=== PATIENT | female | born 1950 | race Caucasian/White ===

== ENCOUNTER → 2016-10-21 | Outpatient (CLI) | payer MEDICARE ==
[~2016-10-21] MED LIST: ALLOPURINOL100 MG PO; APAP/OXYCODONE1 TA2 PO; ASPI-COR81 M1 PO; ASPIRIN81 M1 PO; ATARAX25 MG PO; ATROPINE SU0.1 MG/ML IV; CALAN,ISOPTIN80 MG PO; CARDIZEM120 MG PO; CARVEDILOL6.25 MG PO; CEFTIN500 MG PO; CIPRO500 MG PO; CLOPIDOGREL75 MG PO; DIGOX0.125 MG PO; DOXYCYCLINE100 M3 PO; FUROSEMIDE40 MG PO; HUMALOG100 U/ML SC; IMDUR30 MG PO; INSULIN-HUMA100 U/ML; IRON TABLETS325 MG PO; KLOR-CON 1010 ME1 PO; LANOXIN0.125 MG PO; LANTUS100 U/ML SC; LASIX40 MG PO; LEVOFLOXACIN500 MG PO; LEVOTHYROXINE0.05 MG PO; LEVOXYL0.025 MG PO; LIPITOR40 MG PO; LORAZEPAM0.5 MG PO; LOVENOX30 MG/0.3 SC; METOPROLOL SUC100 M2 PO; METOPROLOL SUCC50 M1 PO; MULTIVITAMIN FO1 CAP PO; OMEPRAZOLE D/R20 MG PO; OMEPRAZOLE20 MG PO; ONDANSETRON4 MG PO; PANTOPRAZOLE SO40 MG PO; PRAVACHOL80 MG PO; PREDNICOT20 MG PO; PROGESTERONE200 M2 PO; PROPAFENONE HC150 MG PO; SIMVASTATIN80 MG PO; TEMAZEPAM15 MG PO; TOPROL XL50 MG PO; TORSEMIDE20 MG PO; TRAMADOL HYDROC50 MG PO; TRAMADOL50 MG PO; ULORIC40 MG PO; ULTRAM50 MG PO; VERAPAMIL HCL240 M1 PO; VERAPAMIL HYDRO80 MG PO; VERAPAMIL SR120 MG PO; VITAMIN D5000 UNI1 PO; XANAX0.25 MG PO; XANAX0.5 MG PO; ZANTAC 150150 MG PO; ZOFRAN ODT4 MG SL; Zofran4 MG PO; [UNRECOGNIZED DRUG - OTHER] PO
[2016-10-21 09:38] LABS: BASO # 0.1 10*3/uL (0.0-0.1); BASO % 0.7 % (0.0-1.0); EOS # 0.2 10*3/uL (0.0-0.4); EOS % 2.5 % (1.0-4.0); HEMATOCRIT 43.6 % (37.0-47.0); HEMOGLOBIN 14.4 g/dl (12.0-16.0); IG # 0.1 10*3/uL (0.0-0.1); LYMPH # 2.1 10*3/uL (1.3-4.4); LYMPH % 22.1 % (27.0-41.0); MEAN CELL VOLUME 91.4 fl (81.0-99.0); MEAN CORPUSCULAR HGB 30.2 pg (27.0-31.0); MEAN PLATELET VOLUME 10.7 fl (9.6-12.3); NEUT # 6.2 10*3/uL (2.3-7.9); NEUT % 63.8 % (47.0-73.0); PLATELET COUNT AUTOMATED 223 10*3/uL (130-400); RED BLOOD COUNT 4.77 10*6/uL (4.10-5.10); RED CELL DISTRI WIDTH 15.3 % (0-14.5); WHITE BLOOD COUNT 9.6 10*3/uL (4.8-10.8)
[2016-10-21 09:45] LABS: BILIRUBIN NEGATIVE (NEGATIVE); BLOOD NEGATIVE (NEGATIVE); CLARITY CLEAR (CLEAR); COLOR YELLOW (YELLOW); GLUCOSE TRACE (NEGATIVE); KETONE NEGATIVE (NEGATIVE); LEUKO ESTERASE NEGATIVE (NEGATIVE); NITRITE NEGATIVE (NEGATIVE); PROTEIN NEGATIVE (NEGATIVE); UROBILINOGEN 0.2 E.U./dl (0.2-1.0)
[2016-10-21 09:55] LABS: WBC 0-2 wbc/hpf (0-5); YEAST TRACE
[2016-10-21 10:07] LABS: MAGNESIUM 2.5 mg/dL (1.5-2.1); PHOSPHOROUS 3.5 mg/dL (2.5-4.9); POTASSIUM 5.2 mmol/L (3.5-5.1); URIC ACID 7.6 mg/dL (2.6-6.0)
[2016-10-22 10:06] LABS: MICRO ALBUMIN/CRE RATIO <4.0 (0.0-30.0)
== END | disposition home or self-care (01) ==
LOC: LAB 09:15
PROVIDERS: Internal Medicine Nephrology
DX: I13.0 Hypertensive heart and chronic kidney disease with heart failure and stage 1 through stage 4 chronic kidney disease, or unspecified chronic kidney disease (principal); N18.3 Chronic kidney disease, stage 3 (moderate); I50.9 Heart failure, unspecified; E55.9 Vitamin D deficiency, unspecified; R60.9 Edema, unspecified; R80.9 Proteinuria, unspecified; M1A.00X0 Idiopathic chronic gout, unspecified site, without tophus (tophi); N25.89 Other disorders resulting from impaired renal tubular function; D63.1 Anemia in chronic kidney disease

== ENCOUNTER → 2017-04-15 | Outpatient (CLI) | payer MEDICARE ==
[2017-04-15 09:15] LABS: BILIRUBIN NEGATIVE (NEGATIVE); BLOOD NEGATIVE (NEGATIVE); CLARITY CLEAR (CLEAR); COLOR YELLOW (YELLOW); GLUCOSE NEGATIVE (NEGATIVE); KETONE NEGATIVE (NEGATIVE); LEUKO ESTERASE NEGATIVE (NEGATIVE); NITRITE NEGATIVE (NEGATIVE); PH 5.5 (5.0-9.0); UROBILINOGEN 0.2 E.U./dl (0.2-1.0)
[2017-04-15 09:42] LABS: CREATININE 1.72 mg/dL (0.55-1.02); POTASSIUM 4.5 mmol/L (3.5-5.1)
[2017-04-15 09:52] LABS: RBC 0-2 rbc/hpf (0-2); WBC 0-2 wbc/hpf (0-5)
== END | disposition home or self-care (01) ==
LOC: LAB 08:46
PROVIDERS: Internal Medicine; Internal Medicine Nephrology
DX: N18.9 Chronic kidney disease, unspecified (principal); N39.0 Urinary tract infection, site not specified

== ENCOUNTER 2017-05-12 11:41 | Inpatient (IN) | payer MEDICARE ==
[~2017-05-12] VITALS: Ht 167.6 cm; Wt 122.5 kg
[~2017-05-12 11:41] MED LIST changes: -DIGOX0.125 MG PO; +DIGOX125 MCG PO; +HUMALOG100 UNIT/1 SC; +LEVOTHYROXINE50 MCG PO
[2017-05-12 12:15] VITALS: BP 116/60
--- NOTE | 2017-05-12 12:15 | NUR ---
Time: 1214 A 67 year old FEMALE admitted to under services of DR. NORY ALARCON,PILAR. Pt. arrived via wheel chair from [place]. Chief complaint: WOUNDS TO BILATERAL ABDOMEN, RIGHT SIDE HAS OPENED AND IS DRAINING WITH ODOR. MARISEL FLEMING
[2017-05-12] MEDS ORDERED: TOPROL XL50 M1 PO (13:05)
[2017-05-12] MEDS ORDERED: ATIVAN0.5 MG PO (13:08)
[2017-05-12] MEDS ORDERED: JANUVIA50 MG PO (13:09)
[2017-05-12] MEDS ORDERED: Rocaltrol0.25 MCG PO (13:10)
--- NOTE | 2017-05-12 13:10 | NUR ---
MED REC UPDATED/CORRECTED USING MEDS LIST PROVIDED BY THE PATIENT.
--- NOTE | 2017-05-12 14:23 | NUR ---
DR. SINGH NOTIFIED OF CONSULT.
[2017-05-12 14:26] LABS: BASO # 0.1 10*3/uL (0.0-0.1); BASO % 0.4 % (0.0-1.0); EOS # 0.2 10*3/uL (0.0-0.4); EOS % 1.7 % (1.0-4.0); HEMATOCRIT 39.7 % (37.0-47.0); HEMOGLOBIN 13.2 g/dl (12.0-16.0); LYMPH # 2.5 10*3/uL (1.3-4.4); LYMPH % 21.5 % (27.0-41.0); MEAN CELL VOLUME 87.8 fl (81.0-99.0); MEAN CORPUSCULAR HGB 29.2 pg (27.0-31.0); MEAN CORPUSCULAR HGB CONC 33.2 g/dl (33.0-37.0); MEAN PLATELET VOLUME 10.3 fl (9.6-12.3); MONO # 1.2 10*3/uL (0.1-1.0); MONO % 10.1 % (3.0-9.0); NEUT # 7.7 10*3/uL (2.3-7.9); NEUT % 65.6 % (47.0-73.0); PLATELET COUNT AUTOMATED 227 10*3/uL (130-400); RED BLOOD COUNT 4.52 10*6/uL (4.10-5.10); RED CELL DISTRI WIDTH 14.8 % (0-14.5); WHITE BLOOD COUNT 11.8 10*3/uL (4.8-10.8)
[2017-05-12 14:34] LABS: ACT PARTIAL THROMBO TIME 19.6 SECONDS (20.8-31.5)
[2017-05-12 14:44] LABS: ALBUMIN 3.1 gm/dl (3.1-4.5); CREATININE 1.58 mg/dL (0.55-1.02); POTASSIUM 3.7 mmol/L (3.5-5.1); TOTAL PROTEIN 7.5 gm/dL (6.4-8.2)
[2017-05-12 14:52] LABS: THYROID STIM HORMONE (HS) 2.23 uIU/ml (0.358-4.75)
--- NOTE | 2017-05-12 14:57 | NUR ---
JOSSIE DIAZ [id number] Please refer to the physician's history and physical for past medical history, comorbid conditions, and allergies. Diagnosis: ABD WALL ABSCESS Gigi Score: 19,LOW OR NO RISK WOUND DESCRIPTIONS: Location of the wound: ABD Right lower quadrant Type of wound: Thickness: Partial Size: 3cm x 2cm x 0.1cm Tunneling: none Undermining: none Sinus Tract: none Presence of Exudate: SeroSanguineous Amount: Moderate Color: Brown Odor: Foul Periwound Skin Appearance: Erythema Wound edges: approximated Pain (associated with wound): Patient stated pain 5/10 at time of assessment How does patient state this happened? patient stated this area started as a reddened area then became bigger. Patient seen Dr. Foreman and he admitted her to the floor Surface the patient is resting on: Isoflex SKIN PREVENTION RECOMMENDATION: 1. Pressure redistribution support surface as appropriate 2. Elevate heels 3. Remove boots/TEDS every shift and reapply 4. Head of bed 30 degrees as tolerated 5. Assess nutrition and hydration 6. Manage moisture 7. Avoid the use of containment devices while in bed 8. Use absorptive products on surfaces limit layers of linens on bed 9. Turn and reposition every 1-2 hours in bed and every 1 hour in chair as tolerated 10. Weight shifts every 15 minutes while up in chair 11. Offloading with pillows or device to keep heels elevated off bed 12. Monitor skin at least every shift 13. Inspect under medical devices twice a day WOUND TREATMENT RECOMMENDATIONS: Await orders from surgery consult.
[2017-05-12 16:00] VITALS: BP 134/57
[2017-05-12 20:00] VITALS: BP 98/70
--- NOTE | 2017-05-12 20:16 | NUR ---
PATIENT SITTING ON SIDE OF BED WITH NO S/S OF DISTRESS. RESPS EASY AND REGULAR. NO NEEDS MADE. ANTIBIOTIC INFUSING WITHOUT DIFFICULTY. BED IN LOWEST POSITION, CALL LIGHT IN REACH
[2017-05-13] VITALS (8 sets, daily range): BP systolic 111–135; BP diastolic 38–70
--- NOTE | 2017-05-13 00:27 | NUR ---
SPOKE WITH DR VEGAS REGARDING ALLERGY TO NAPROXEN AND ASA. STATES HE IS AWARE
--- NOTE | 2017-05-13 03:17 | NUR ---
PATIENT RESTING IN BED WITH NO S/S OF DISTRESS. RESPS EASY AND REGULAR. BED IN LOWEST POSITION, CALL LIGHT IN REACH
--- NOTE | 2017-05-13 03:54 | NUR ---
24 HR chart check completed.
[2017-05-13 06:54] LABS: BASO # 0.1 10*3/uL (0.0-0.1); BASO % 0.5 % (0.0-1.0); EOS # 0.2 10*3/uL (0.0-0.4); EOS % 1.7 % (1.0-4.0); HEMATOCRIT 37.4 % (37.0-47.0); HEMOGLOBIN 12.4 g/dl (12.0-16.0); LYMPH # 1.5 10*3/uL (1.3-4.4); LYMPH % 16.6 % (27.0-41.0); MEAN CELL VOLUME 89.3 fl (81.0-99.0); MEAN CORPUSCULAR HGB 29.6 pg (27.0-31.0); MEAN CORPUSCULAR HGB CONC 33.2 g/dl (33.0-37.0); MEAN PLATELET VOLUME 10.4 fl (9.6-12.3); NEUT # 6.4 10*3/uL (2.3-7.9); NEUT % 69.7 % (47.0-73.0); PLATELET COUNT AUTOMATED 203 10*3/uL (130-400); RED BLOOD COUNT 4.19 10*6/uL (4.10-5.10); RED CELL DISTRI WIDTH 14.7 % (0-14.5); WHITE BLOOD COUNT 9.2 10*3/uL (4.8-10.8)
[2017-05-13 07:28] LABS: POTASSIUM 3.7 mmol/L (3.5-5.1)
[2017-05-13 07:49] LABS: ALBUMIN 2.9 gm/dl (3.1-4.5); CREATININE 1.7 mg/dL (0.55-1.02); DIGOXIN 0.91 ng/ml (0.8-2.0); TOTAL PROTEIN 7.1 gm/dL (6.4-8.2)
--- NOTE | 2017-05-13 08:30 | NUR ---
[facility] Practitioner in to talk to patient. Patient states lives at HOME with HER . There are 0 steps in the home. Physician: DR CUETO Pharmacy: [facility] health services: NONE Patient's level of ADLs: INDEPENDENT Patient has working utilities: YES DME: BSC/WALKER/GLUCOMETER Follow-up physician's appointment after d/c: PREFERS TO MAKE HER OWN APPT Does patient want to access PORTAL?: Discharge plan HOME. BRYON ALEXANDER
--- NOTE | 2017-05-13 11:35 | NUR ---
BEDSIDE GLUCOSE RESULT 75; DR. CUETO IN TO SEE PATIENT RE: PLAN OF CARE, PATIENT IS NPO, SO PER DR. CUETO, PATIENT TO HAVE ONE AMP D50 NOW PRIOR TO GOING TO SURGERY. ADMINISTERED ONE AMP D50, PATIENT STATES NO S/S OF HYPOGLYCEMIA YET, THEN PATIENT TO OR BY BED FOR I & D PROCEDURE. FAMILY TO 3RD FLOOR WITH PATIENT.
--- NOTE | 2017-05-13 14:29 | NUR ---
PATIENT BACK FROM OR PROCEDURE, RESUMING MEDS AND DIET.
--- NOTE | 2017-05-13 17:30 | NUR ---
PT GIVEN MILK OF MAGNESIUM AND BISACODYL PER REQUEST.
[2017-05-14] VITALS: BP 136/89
[2017-05-14 06:34] LABS: BASO % 0.4 % (0.0-1.0); EOS # 0.2 10*3/uL (0.0-0.4); EOS % 2.5 % (1.0-4.0); HEMATOCRIT 37.5 % (37.0-47.0); HEMOGLOBIN 12.3 g/dl (12.0-16.0); LYMPH # 1.7 10*3/uL (1.3-4.4); LYMPH % 17.5 % (27.0-41.0); MEAN CELL VOLUME 89.1 fl (81.0-99.0); MEAN CORPUSCULAR HGB 29.2 pg (27.0-31.0); MEAN CORPUSCULAR HGB CONC 32.8 g/dl (33.0-37.0); MONO # 1.1 10*3/uL (0.1-1.0); MONO % 11.8 % (3.0-9.0); NEUT # 6.4 10*3/uL (2.3-7.9); NEUT % 67.1 % (47.0-73.0); PLATELET COUNT AUTOMATED 213 10*3/uL (130-400); RED BLOOD COUNT 4.21 10*6/uL (4.10-5.10); RED CELL DISTRI WIDTH 14.9 % (0-14.5); WHITE BLOOD COUNT 9.6 10*3/uL (4.8-10.8)
[2017-05-14 07:00] LABS: CREATININE 1.82 mg/dL (0.55-1.02); TOTAL PROTEIN 7.1 gm/dL (6.4-8.2)
[2017-05-14 08:00] VITALS: BP 111/66
--- NOTE | 2017-05-14 08:00 | NUR ---
PT UP RESTING IN BED, PT DENIES ANY DISTRESS. PT STATES SOME "BURNING" TO ABDOMINAL WOUNDS, DENIES ANY PAIN. DRESSINGS TO RLQ/LLQ D&I. 1+ EDEMA NOTED TO BLE, REDNESS TO LOWER EXTREMEITIES NOTED. PT DENIES ANY COMPLAINTS, CALL LIGHT WITHIN REACH.
--- NOTE | 2017-05-14 10:00 | NUR ---
SPOKE WITH WOUND CARE NURSE KATHRYN REGARDING WOUND CARE ORDERS, SHE STATES WE ARE WAITING TO HEAR BACK FROM DR SINGH REGARDING INSTRUCTIONS.
--- NOTE | 2017-05-14 11:33 | NUR ---
PT DENIES PAIN AT THIS TIME, STATING IT IS NOTHING SHE CAN'T TOLERATE, DENIES SCHEDULED ULTRAM AT THIS TIME.
[2017-05-14 12:00] VITALS: BP 130/91
[2017-05-14 16:00] VITALS: BP 100/84
--- NOTE | 2017-05-14 17:56 | NUR ---
WOUND CARE PERFORMED PER ORDER AND WOUND PHOTOS TAKEN. PT TOLERATED WELL. PT WAS EXPERIENCING SOME DISCOMFORT, PT DENIES NEED FOR PAIN MEDS.
--- NOTE | 2017-05-14 19:57 | NUR ---
PT. IS RESTING IN BED AT THIS TIME WITH C/O ABDOMINAL PAIN, BUT REFUSES PAIN MEDICATION. RESPERS ARE EASY AND REGULAR WITH NO DISTRESS NOTED. HOB IS ELEVATED, WHEELS LOCKED, AND BED IN LOWEST POSITION WITH CALL LIGHT IN REACH. DRESSINGS ARE DRY AND INTACT. SEE SHIFT ASSESSMENT.
[2017-05-14 20:00] VITALS: BP 112/64
[2017-05-15] VITALS: BP 119/49
--- NOTE | 2017-05-15 02:54 | NUR ---
24 HR chart check completed.
[2017-05-15 06:16] LABS: BASO # 0.1 10*3/uL (0.0-0.1); BASO % 0.6 % (0.0-1.0); EOS # 0.4 10*3/uL (0.0-0.4); EOS % 4.3 % (1.0-4.0); HEMATOCRIT 38.9 % (37.0-47.0); LYMPH % 21.8 % (27.0-41.0); MEAN CELL VOLUME 88.8 fl (81.0-99.0); MEAN CORPUSCULAR HGB 29.7 pg (27.0-31.0); MEAN CORPUSCULAR HGB CONC 33.4 g/dl (33.0-37.0); MEAN PLATELET VOLUME 10.1 fl (9.6-12.3); MONO % 10.9 % (3.0-9.0); NEUT # 5.6 10*3/uL (2.3-7.9); NEUT % 61.7 % (47.0-73.0); PLATELET COUNT AUTOMATED 223 10*3/uL (130-400); RED BLOOD COUNT 4.38 10*6/uL (4.10-5.10); RED CELL DISTRI WIDTH 14.7 % (0-14.5)
[2017-05-15 07:09] LABS: POTASSIUM 3.8 mmol/L (3.5-5.1)
[2017-05-15 07:15] LABS: CREATININE 1.75 mg/dL (0.55-1.02)
[2017-05-15 08:00] VITALS: BP 141/62
--- NOTE | 2017-05-15 10:47 | NUR ---
Nutritional Support Services Note: Discussing with pt po intake and need for adequate calories and protein. Pt has a good understanding. Appetite is good. Will follow as needed. No other nutrition intervention needed at this time. Charo Preciado
[2017-05-15 12:00] VITALS: BP 121/67
--- NOTE | 2017-05-15 12:10 | NUR ---
PT DENYING ANY NEED FOR PAIN MEDS AT THIS TIME, ULTRAM NOT GIVEN.
--- NOTE | 2017-05-15 14:00 | NUR ---
IN TO DRESSING CHANGES AT THIS TIME. PT STATES DR CUETO TOLD HER DR SINGH WOULD BE IN TO SEE HER AND MAY WANT TO CHANGE ORDERS, PT REQUESTING DRESSINGS NOT TO BE CHANGED UNTIL DR SINGH SEE'S HER IT IS PAINFUL FOR HER.
--- NOTE | 2017-05-15 15:28 | NUR ---
DRESSINGS CHANGED PER ORDER. PT TOLERATED WELL.
[2017-05-15 16:00] VITALS: BP 108/78
[2017-05-15 20:00] VITALS: BP 121/70
[2017-05-16] VITALS: BP 107/63
[2017-05-16 05:47] LABS: CREATININE 1.81 mg/dL (0.55-1.02); POTASSIUM 3.9 mmol/L (3.5-5.1)
[2017-05-16 06:20] LABS: BASO # 0.1 10*3/uL (0.0-0.1); BASO % 0.6 % (0.0-1.0); EOS # 0.3 10*3/uL (0.0-0.4); EOS % 3.1 % (1.0-4.0); HEMATOCRIT 37.7 % (37.0-47.0); HEMOGLOBIN 12.2 g/dl (12.0-16.0); LYMPH # 2.2 10*3/uL (1.3-4.4); LYMPH % 24.6 % (27.0-41.0); MEAN CELL VOLUME 88.3 fl (81.0-99.0); MEAN CORPUSCULAR HGB 28.6 pg (27.0-31.0); MEAN CORPUSCULAR HGB CONC 32.4 g/dl (33.0-37.0); MEAN PLATELET VOLUME 10.8 fl (9.6-12.3); MONO # 0.9 10*3/uL (0.1-1.0); MONO % 10.8 % (3.0-9.0); NEUT # 5.2 10*3/uL (2.3-7.9); PLATELET COUNT AUTOMATED 229 10*3/uL (130-400); RED BLOOD COUNT 4.27 10*6/uL (4.10-5.10); RED CELL DISTRI WIDTH 14.5 % (0-14.5); WHITE BLOOD COUNT 8.7 10*3/uL (4.8-10.8)
[2017-05-16 08:00] VITALS: BP 132/46
--- NOTE | 2017-05-16 10:42 | NUR ---
PT MEDICATED WITH NORCO FOR C/O PAIN TO RIGHT SIDE ABD WOUND.
--- NOTE | 2017-05-16 11:23 | NUR ---
BILATERAL ABD WOUND DRESSING CHANGED PER PHYSICIANS ORDERS.
[2017-05-16 12:00] VITALS: BP 115/60
--- NOTE | 2017-05-16 14:22 | NUR ---
PT DISCHARGED AT THIS TIME WITH TO HOME VIA WHEELCHAIR.
== END 2017-05-16 14:22 | disposition home or self-care (01) | DRG 571 ==
LOC: 4E 11:41
PROVIDERS: Internal Medicine; Internal Medicine Hospice and Palliative Medicine; ADMIT Internal Medicine
PROC: 0JB80ZZ Excision of Abdomen Subcutaneous Tissue and Fascia, Open Approach (ICD-10-PCS; principal; 2017-05-13)
DX: L02.211 Cutaneous abscess of abdominal wall (principal); I44.2 Atrioventricular block, complete; E44.0 Moderate protein-calorie malnutrition; N18.4 Chronic kidney disease, stage 4 (severe); I48.91 Unspecified atrial fibrillation; E11.22 Type 2 diabetes mellitus with diabetic chronic kidney disease; E11.65 Type 2 diabetes mellitus with hyperglycemia; E66.01 Morbid (severe) obesity due to excess calories; E03.9 Hypothyroidism, unspecified; Z68.41 Body mass index [BMI] 40.0-44.9, adult; E55.9 Vitamin D deficiency, unspecified; I12.9 Hypertensive chronic kidney disease with stage 1 through stage 4 chronic kidney disease, or unspecified chronic kidney disease; X58.XXXA Exposure to other specified factors, initial encounter; S30.92XA Unspecified superficial injury of abdominal wall, initial encounter; I25.10 Atherosclerotic heart disease of native coronary artery without angina pectoris; K21.9 Gastro-esophageal reflux disease without esophagitis; M1A.9XX0 Chronic gout, unspecified, without tophus (tophi); F41.1 Generalized anxiety disorder; E78.00 Pure hypercholesterolemia, unspecified; H54.7 Unspecified visual loss; Z79.899 Other long term (current) drug therapy; I25.2 Old myocardial infarction; Z83.3 Family history of diabetes mellitus; Z87.440 Personal history of urinary (tract) infections; Z95.0 Presence of cardiac pacemaker; Z79.4 Long term (current) use of insulin; Z82.49 Family history of ischemic heart disease and other diseases of the circulatory system; Z88.8 Allergy status to other drugs, medicaments and biological substances; Z91.041 Radiographic dye allergy status; Y93.89 Activity, other specified; Y92.89 Other specified places as the place of occurrence of the external cause; Y99.8 Other external cause status

== ENCOUNTER → 2017-05-20 | Outpatient (CLI) | payer MEDICARE ==
[~2017-05-20] MED LIST changes: +ATIVAN0.5 MG PO; +JANUVIA50 MG PO; +Rocaltrol0.25 MCG PO; +TOPROL XL50 M1 PO
== END | disposition home or self-care (01) ==
LOC: WOUNDCARE 08:27
DX: T81.89XA Other complications of procedures, not elsewhere classified, initial encounter (principal); L03.311 Cellulitis of abdominal wall; L02.211 Cutaneous abscess of abdominal wall; I25.10 Atherosclerotic heart disease of native coronary artery without angina pectoris; E78.00 Pure hypercholesterolemia, unspecified; E11.22 Type 2 diabetes mellitus with diabetic chronic kidney disease; I12.9 Hypertensive chronic kidney disease with stage 1 through stage 4 chronic kidney disease, or unspecified chronic kidney disease; N18.4 Chronic kidney disease, stage 4 (severe); Z87.891 Personal history of nicotine dependence; Z95.0 Presence of cardiac pacemaker; Y83.8 Other surgical procedures as the cause of abnormal reaction of the patient, or of later complication, without mention of misadventure at the time of the procedure

== ENCOUNTER → 2017-06-03 | Outpatient (CLI) | payer MEDICARE | END | disposition home or self-care (01) | LOC: WOUNDCARE 01:12 | DX: S31.103D Unspecified open wound of abdominal wall, right lower quadrant without penetration into peritoneal cavity, subsequent encounter (principal); S31.104D Unspecified open wound of abdominal wall, left lower quadrant without penetration into peritoneal cavity, subsequent encounter; E11.22 Type 2 diabetes mellitus with diabetic chronic kidney disease; I12.9 Hypertensive chronic kidney disease with stage 1 through stage 4 chronic kidney disease, or unspecified chronic kidney disease; N18.4 Chronic kidney disease, stage 4 (severe); E78.00 Pure hypercholesterolemia, unspecified; Z87.891 Personal history of nicotine dependence; Z95.0 Presence of cardiac pacemaker; X58.XXXD Exposure to other specified factors, subsequent encounter ==

== ENCOUNTER → 2017-06-10 | Outpatient (CLI) | payer MEDICARE | END | disposition home or self-care (01) | LOC: WOUNDCARE 01:49 | DX: T81.89XD Other complications of procedures, not elsewhere classified, subsequent encounter (principal); I25.10 Atherosclerotic heart disease of native coronary artery without angina pectoris; E11.22 Type 2 diabetes mellitus with diabetic chronic kidney disease; I12.9 Hypertensive chronic kidney disease with stage 1 through stage 4 chronic kidney disease, or unspecified chronic kidney disease; N18.4 Chronic kidney disease, stage 4 (severe); E78.00 Pure hypercholesterolemia, unspecified; Z95.0 Presence of cardiac pacemaker; Z95.1 Presence of aortocoronary bypass graft; Z87.891 Personal history of nicotine dependence; Y83.8 Other surgical procedures as the cause of abnormal reaction of the patient, or of later complication, without mention of misadventure at the time of the procedure ==

== ENCOUNTER → 2017-06-19 | Outpatient (CLI) | payer MEDICARE | END | disposition home or self-care (01) | LOC: WOUNDCARE 03:22 | DX: S31.103D Unspecified open wound of abdominal wall, right lower quadrant without penetration into peritoneal cavity, subsequent encounter (principal); S31.104D Unspecified open wound of abdominal wall, left lower quadrant without penetration into peritoneal cavity, subsequent encounter; E11.22 Type 2 diabetes mellitus with diabetic chronic kidney disease; I12.9 Hypertensive chronic kidney disease with stage 1 through stage 4 chronic kidney disease, or unspecified chronic kidney disease; N18.4 Chronic kidney disease, stage 4 (severe); I25.10 Atherosclerotic heart disease of native coronary artery without angina pectoris; E78.00 Pure hypercholesterolemia, unspecified; Z95.0 Presence of cardiac pacemaker; Z87.891 Personal history of nicotine dependence; X58.XXXD Exposure to other specified factors, subsequent encounter ==

== ENCOUNTER → 2017-06-24 | Outpatient (CLI) | payer MEDICARE | END | disposition home or self-care (01) | LOC: WOUNDCARE 00:58 | DX: T81.89XD Other complications of procedures, not elsewhere classified, subsequent encounter (principal); E11.22 Type 2 diabetes mellitus with diabetic chronic kidney disease; I12.9 Hypertensive chronic kidney disease with stage 1 through stage 4 chronic kidney disease, or unspecified chronic kidney disease; N18.4 Chronic kidney disease, stage 4 (severe); I25.10 Atherosclerotic heart disease of native coronary artery without angina pectoris; E78.00 Pure hypercholesterolemia, unspecified; Z95.0 Presence of cardiac pacemaker; Z87.891 Personal history of nicotine dependence; Y83.8 Other surgical procedures as the cause of abnormal reaction of the patient, or of later complication, without mention of misadventure at the time of the procedure ==

== ENCOUNTER → 2017-07-01 | Outpatient (CLI) | payer MEDICARE | END | disposition home or self-care (01) | LOC: WOUNDCARE 02:14 | DX: T81.89XD Other complications of procedures, not elsewhere classified, subsequent encounter (principal); E11.22 Type 2 diabetes mellitus with diabetic chronic kidney disease; I12.9 Hypertensive chronic kidney disease with stage 1 through stage 4 chronic kidney disease, or unspecified chronic kidney disease; N18.4 Chronic kidney disease, stage 4 (severe); E78.00 Pure hypercholesterolemia, unspecified; Z87.891 Personal history of nicotine dependence; Z95.0 Presence of cardiac pacemaker; Y83.8 Other surgical procedures as the cause of abnormal reaction of the patient, or of later complication, without mention of misadventure at the time of the procedure ==

== ENCOUNTER → 2017-07-10 | Outpatient (CLI) | payer MEDICARE | END | disposition home or self-care (01) | LOC: WOUNDCARE 01:16 | DX: T81.89XD Other complications of procedures, not elsewhere classified, subsequent encounter (principal); I25.10 Atherosclerotic heart disease of native coronary artery without angina pectoris; E78.00 Pure hypercholesterolemia, unspecified; E11.22 Type 2 diabetes mellitus with diabetic chronic kidney disease; I12.9 Hypertensive chronic kidney disease with stage 1 through stage 4 chronic kidney disease, or unspecified chronic kidney disease; N18.4 Chronic kidney disease, stage 4 (severe); Z95.0 Presence of cardiac pacemaker; Z87.891 Personal history of nicotine dependence; Y83.8 Other surgical procedures as the cause of abnormal reaction of the patient, or of later complication, without mention of misadventure at the time of the procedure ==

== ENCOUNTER → 2017-09-02 | Outpatient (CLI) | payer MEDICARE ==
[~2017-09-02] MED LIST changes: +FLUCONAZOLE100 MG PO
== END | disposition home or self-care (01) ==
LOC: WOUNDCARE 04:04
DX: T81.89XA Other complications of procedures, not elsewhere classified, initial encounter (principal); S31.100D Unspecified open wound of abdominal wall, right upper quadrant without penetration into peritoneal cavity, subsequent encounter; E11.628 Type 2 diabetes mellitus with other skin complications; L02.211 Cutaneous abscess of abdominal wall; L03.311 Cellulitis of abdominal wall; E55.9 Vitamin D deficiency, unspecified; E78.00 Pure hypercholesterolemia, unspecified; E11.22 Type 2 diabetes mellitus with diabetic chronic kidney disease; I12.9 Hypertensive chronic kidney disease with stage 1 through stage 4 chronic kidney disease, or unspecified chronic kidney disease; N18.4 Chronic kidney disease, stage 4 (severe); I25.10 Atherosclerotic heart disease of native coronary artery without angina pectoris; Z95.0 Presence of cardiac pacemaker; Z87.891 Personal history of nicotine dependence; Z79.4 Long term (current) use of insulin; Z96.651 Presence of right artificial knee joint; X58.XXXD Exposure to other specified factors, subsequent encounter; Y83.8 Other surgical procedures as the cause of abnormal reaction of the patient, or of later complication, without mention of misadventure at the time of the procedure; Y92.89 Other specified places as the place of occurrence of the external cause

== ENCOUNTER → 2017-09-11 | Outpatient (CLI) | payer MEDICARE ==
[~2017-09-11] MED LIST changes: -FLUCONAZOLE100 MG PO
== END | disposition home or self-care (01) ==
LOC: WOUNDCARE 11:19
DX: S31.100D Unspecified open wound of abdominal wall, right upper quadrant without penetration into peritoneal cavity, subsequent encounter (principal); E11.22 Type 2 diabetes mellitus with diabetic chronic kidney disease; I12.9 Hypertensive chronic kidney disease with stage 1 through stage 4 chronic kidney disease, or unspecified chronic kidney disease; N18.4 Chronic kidney disease, stage 4 (severe); I25.10 Atherosclerotic heart disease of native coronary artery without angina pectoris; E78.00 Pure hypercholesterolemia, unspecified; Z95.0 Presence of cardiac pacemaker; Z96.651 Presence of right artificial knee joint; Z87.891 Personal history of nicotine dependence; X58.XXXD Exposure to other specified factors, subsequent encounter

== ENCOUNTER → 2017-09-18 | Outpatient (CLI) | payer MEDICARE | END | disposition home or self-care (01) | LOC: WOUNDCARE 11:15 | DX: S31.103D Unspecified open wound of abdominal wall, right lower quadrant without penetration into peritoneal cavity, subsequent encounter (principal); E11.22 Type 2 diabetes mellitus with diabetic chronic kidney disease; I12.9 Hypertensive chronic kidney disease with stage 1 through stage 4 chronic kidney disease, or unspecified chronic kidney disease; N18.4 Chronic kidney disease, stage 4 (severe); I25.10 Atherosclerotic heart disease of native coronary artery without angina pectoris; E78.00 Pure hypercholesterolemia, unspecified; Z95.0 Presence of cardiac pacemaker; Z96.651 Presence of right artificial knee joint; Z87.891 Personal history of nicotine dependence; X58.XXXD Exposure to other specified factors, subsequent encounter ==

== ENCOUNTER → 2017-09-23 | Outpatient (CLI) | payer MEDICARE | END | disposition home or self-care (01) | LOC: WOUNDCARE 15:09 | DX: S31.100D Unspecified open wound of abdominal wall, right upper quadrant without penetration into peritoneal cavity, subsequent encounter (principal); E11.22 Type 2 diabetes mellitus with diabetic chronic kidney disease; I12.9 Hypertensive chronic kidney disease with stage 1 through stage 4 chronic kidney disease, or unspecified chronic kidney disease; N18.4 Chronic kidney disease, stage 4 (severe); I25.10 Atherosclerotic heart disease of native coronary artery without angina pectoris; E78.00 Pure hypercholesterolemia, unspecified; Z87.891 Personal history of nicotine dependence; Z96.651 Presence of right artificial knee joint; Z95.0 Presence of cardiac pacemaker; X58.XXXD Exposure to other specified factors, subsequent encounter ==

== ENCOUNTER 2017-11-17 09:19 | Inpatient (IN) | payer MEDICARE ==
[~2017-11-17] VITALS: Ht 167.6 cm; Wt 117.5 kg
[2017-11-17] VITALS (7 sets, daily range): BP systolic 100–126; BP diastolic 50–68
[2017-11-17 09:48] LABS: BASO # 0.1 10*3/uL (0.0-0.1); BASO % 0.4 % (0.0-1.0); EOS # 0.2 10*3/uL (0.0-0.4); EOS % 1.2 % (1.0-4.0); HEMATOCRIT 40.8 % (37.0-47.0); HEMOGLOBIN 13.4 g/dl (12.0-16.0); LYMPH # 1.5 10*3/uL (1.3-4.4); LYMPH % 12.2 % (27.0-41.0); MEAN CELL VOLUME 89.1 fl (81.0-99.0); MEAN CORPUSCULAR HGB 29.3 pg (27.0-31.0); MEAN CORPUSCULAR HGB CONC 32.8 g/dl (33.0-37.0); MEAN PLATELET VOLUME 11.5 fl (9.6-12.3); NEUT # 9.3 10*3/uL (2.3-7.9); NEUT % 77.3 % (47.0-73.0); PLATELET COUNT AUTOMATED 247 10*3/uL (130-400); RED BLOOD COUNT 4.58 10*6/uL (4.10-5.10); RED CELL DISTRI WIDTH 14.9 % (0-14.5); WHITE BLOOD COUNT 12.1 10*3/uL (4.8-10.8)
[2017-11-17 10:03] LABS: ACT PARTIAL THROMBO TIME 23.7 SECONDS (20.8-31.5); ALBUMIN 3.2 gm/dl (3.1-4.5); CREATININE 1.57 mg/dL (0.55-1.02); POTASSIUM 4.7 mmol/L (3.5-5.1); TOTAL PROTEIN 7.3 gm/dL (6.4-8.2)
[2017-11-18] VITALS (8 sets, daily range): BP systolic 83–146; BP diastolic 44–103
[2017-11-18 06:31] LABS: BASO # 0.1 10*3/uL (0.0-0.1); BASO % 0.7 % (0.0-1.0); EOS # 0.2 10*3/uL (0.0-0.4); EOS % 2.7 % (1.0-4.0); HEMATOCRIT 38.2 % (37.0-47.0); LYMPH # 1.6 10*3/uL (1.3-4.4); LYMPH % 18.4 % (27.0-41.0); MEAN CORPUSCULAR HGB 28.6 pg (27.0-31.0); MEAN CORPUSCULAR HGB CONC 31.4 g/dl (33.0-37.0); MEAN PLATELET VOLUME 10.6 fl (9.6-12.3); MONO # 0.8 10*3/uL (0.1-1.0); MONO % 8.5 % (3.0-9.0); NEUT % 68.6 % (47.0-73.0); PLATELET COUNT AUTOMATED 207 10*3/uL (130-400); RED CELL DISTRI WIDTH 15.1 % (0-14.5); WHITE BLOOD COUNT 8.8 10*3/uL (4.8-10.8)
[2017-11-18 07:07] LABS: CREATININE 1.75 mg/dL (0.55-1.02); POTASSIUM 5.2 mmol/L (3.5-5.1)
[2017-11-18 07:13] LABS: THYROID STIM HORMONE (HS) 3.54 uIU/ml (0.358-4.75)
[2017-11-18 07:59] LABS: VITAMIN D, 25-HYDROXY 30.7 ng/mL (30-100)
[2017-11-19] VITALS: BP 143/80
[2017-11-19 06:29] LABS: BASO # 0.1 10*3/uL (0.0-0.1); BASO % 0.6 % (0.0-1.0); EOS # 0.3 10*3/uL (0.0-0.4); EOS % 3.9 % (1.0-4.0); HEMOGLOBIN 12.1 g/dl (12.0-16.0); LYMPH # 1.6 10*3/uL (1.3-4.4); LYMPH % 19.7 % (27.0-41.0); MEAN CELL VOLUME 90.7 fl (81.0-99.0); MEAN CORPUSCULAR HGB 28.9 pg (27.0-31.0); MEAN CORPUSCULAR HGB CONC 31.8 g/dl (33.0-37.0); MEAN PLATELET VOLUME 10.3 fl (9.6-12.3); MONO # 0.9 10*3/uL (0.1-1.0); MONO % 10.6 % (3.0-9.0); NEUT # 5.2 10*3/uL (2.3-7.9); NEUT % 64.1 % (47.0-73.0); PLATELET COUNT AUTOMATED 203 10*3/uL (130-400); RED BLOOD COUNT 4.19 10*6/uL (4.10-5.10); RED CELL DISTRI WIDTH 14.8 % (0-14.5); WHITE BLOOD COUNT 8.2 10*3/uL (4.8-10.8)
[2017-11-19 06:35] LABS: ALBUMIN 2.9 gm/dl (3.1-4.5); CREATININE 1.76 mg/dL (0.55-1.02); PHOSPHOROUS 4.1 mg/dL (2.5-4.9); POTASSIUM 5.1 mmol/L (3.5-5.1); TOTAL PROTEIN 7.2 gm/dL (6.4-8.2)
[2017-11-19 08:00] VITALS: BP 112/50
[2017-11-19 12:00] VITALS: BP 115/52
[2017-11-19] MEDS ORDERED: DOXYCYCLINE100 M3 PO (14:07)
[2017-11-19] MEDS ORDERED: FLUCONAZOLE100 MG PO (14:09)
== END 2017-11-19 16:40 | disposition home or self-care (01) | DRG 571 ==
LOC: ED 09:19 → EDHOLD 10:14 → 5E 10:14
PROVIDERS: Internal Medicine; Nurse Practitioner Family; Student in an Organized Health Care Education/Training Program
PROC: 0JB80ZZ Excision of Abdomen Subcutaneous Tissue and Fascia, Open Approach (ICD-10-PCS; principal; 2017-11-18)
DX: L03.311 Cellulitis of abdominal wall (principal); N18.4 Chronic kidney disease, stage 4 (severe); I95.9 Hypotension, unspecified; E11.22 Type 2 diabetes mellitus with diabetic chronic kidney disease; E11.65 Type 2 diabetes mellitus with hyperglycemia; I48.2 Chronic atrial fibrillation; E66.01 Morbid (severe) obesity due to excess calories; I13.10 Hypertensive heart and chronic kidney disease without heart failure, with stage 1 through stage 4 chronic kidney disease, or unspecified chronic kidney disease; Z68.41 Body mass index [BMI] 40.0-44.9, adult; E83.41 Hypermagnesemia; L02.211 Cutaneous abscess of abdominal wall; H54.61 Unqualified visual loss, right eye, normal vision left eye; E87.5 Hyperkalemia; R01.1 Cardiac murmur, unspecified; I25.10 Atherosclerotic heart disease of native coronary artery without angina pectoris; K21.9 Gastro-esophageal reflux disease without esophagitis; E78.00 Pure hypercholesterolemia, unspecified; E03.9 Hypothyroidism, unspecified; F41.1 Generalized anxiety disorder; M10.9 Gout, unspecified; Z88.8 Allergy status to other drugs, medicaments and biological substances; Z91.041 Radiographic dye allergy status; I25.2 Old myocardial infarction; Z95.0 Presence of cardiac pacemaker; Z90.49 Acquired absence of other specified parts of digestive tract; Z98.42 Cataract extraction status, left eye; Z95.5 Presence of coronary angioplasty implant and graft; Z83.3 Family history of diabetes mellitus; Z82.49 Family history of ischemic heart disease and other diseases of the circulatory system; Z80.9 Family history of malignant neoplasm, unspecified; Z79.899 Other long term (current) drug therapy; Z79.02 Long term (current) use of antithrombotics/antiplatelets

== ENCOUNTER → 2017-11-25 | Outpatient (CLI) | payer MEDICARE ==
[~2017-11-25] MED LIST changes: +FLUCONAZOLE100 MG PO
== END | disposition home or self-care (01) ==
LOC: WOUNDCARE 14:21
DX: S31.103D Unspecified open wound of abdominal wall, right lower quadrant without penetration into peritoneal cavity, subsequent encounter (principal); E11.628 Type 2 diabetes mellitus with other skin complications; E11.22 Type 2 diabetes mellitus with diabetic chronic kidney disease; I12.9 Hypertensive chronic kidney disease with stage 1 through stage 4 chronic kidney disease, or unspecified chronic kidney disease; N18.4 Chronic kidney disease, stage 4 (severe); E78.00 Pure hypercholesterolemia, unspecified; I25.10 Atherosclerotic heart disease of native coronary artery without angina pectoris; Z95.1 Presence of aortocoronary bypass graft; Z96.651 Presence of right artificial knee joint; Z87.891 Personal history of nicotine dependence; X58.XXXD Exposure to other specified factors, subsequent encounter

== ENCOUNTER → 2017-12-09 | Outpatient (CLI) | payer MEDICARE ==
[~2017-12-09] MED LIST changes: +DULOXETINE HCL30 MG PO; +MUCINEX ER600 MG PO
== END | disposition home or self-care (01) ==
LOC: WOUNDCARE 04:35
DX: S31.103D Unspecified open wound of abdominal wall, right lower quadrant without penetration into peritoneal cavity, subsequent encounter (principal); E11.628 Type 2 diabetes mellitus with other skin complications; E11.22 Type 2 diabetes mellitus with diabetic chronic kidney disease; I12.9 Hypertensive chronic kidney disease with stage 1 through stage 4 chronic kidney disease, or unspecified chronic kidney disease; N18.4 Chronic kidney disease, stage 4 (severe); E78.00 Pure hypercholesterolemia, unspecified; I25.10 Atherosclerotic heart disease of native coronary artery without angina pectoris; Z95.0 Presence of cardiac pacemaker; Z87.891 Personal history of nicotine dependence; Z96.651 Presence of right artificial knee joint; X58.XXXD Exposure to other specified factors, subsequent encounter

== ENCOUNTER → 2017-12-22 | Outpatient (CLI) | payer MEDICARE | END | disposition home or self-care (01) | LOC: WOUNDCARE 02:24 | DX: S31.103D Unspecified open wound of abdominal wall, right lower quadrant without penetration into peritoneal cavity, subsequent encounter (principal); L92.8 Other granulomatous disorders of the skin and subcutaneous tissue; I25.10 Atherosclerotic heart disease of native coronary artery without angina pectoris; E78.00 Pure hypercholesterolemia, unspecified; E11.22 Type 2 diabetes mellitus with diabetic chronic kidney disease; I12.9 Hypertensive chronic kidney disease with stage 1 through stage 4 chronic kidney disease, or unspecified chronic kidney disease; N18.4 Chronic kidney disease, stage 4 (severe); Z95.0 Presence of cardiac pacemaker; Z87.891 Personal history of nicotine dependence; X58.XXXD Exposure to other specified factors, subsequent encounter ==

== ENCOUNTER → 2017-12-29 | Outpatient (CLI) | payer MEDICARE | END | disposition home or self-care (01) | LOC: WOUNDCARE 05:01 | DX: S31.103D Unspecified open wound of abdominal wall, right lower quadrant without penetration into peritoneal cavity, subsequent encounter (principal); E11.628 Type 2 diabetes mellitus with other skin complications; L03.311 Cellulitis of abdominal wall; L02.211 Cutaneous abscess of abdominal wall; E11.22 Type 2 diabetes mellitus with diabetic chronic kidney disease; I12.9 Hypertensive chronic kidney disease with stage 1 through stage 4 chronic kidney disease, or unspecified chronic kidney disease; N18.4 Chronic kidney disease, stage 4 (severe); E78.00 Pure hypercholesterolemia, unspecified; I25.10 Atherosclerotic heart disease of native coronary artery without angina pectoris; Z95.0 Presence of cardiac pacemaker; Z87.891 Personal history of nicotine dependence; Z96.651 Presence of right artificial knee joint ==

== ENCOUNTER → 2018-01-05 | Outpatient (CLI) | payer MEDICARE | END | disposition home or self-care (01) | LOC: WOUNDCARE 03:46 | DX: S31.103D Unspecified open wound of abdominal wall, right lower quadrant without penetration into peritoneal cavity, subsequent encounter (principal); E11.628 Type 2 diabetes mellitus with other skin complications; L02.211 Cutaneous abscess of abdominal wall; L03.311 Cellulitis of abdominal wall; L92.8 Other granulomatous disorders of the skin and subcutaneous tissue; E11.22 Type 2 diabetes mellitus with diabetic chronic kidney disease; I12.9 Hypertensive chronic kidney disease with stage 1 through stage 4 chronic kidney disease, or unspecified chronic kidney disease; N18.4 Chronic kidney disease, stage 4 (severe); I25.10 Atherosclerotic heart disease of native coronary artery without angina pectoris; E78.00 Pure hypercholesterolemia, unspecified; E55.9 Vitamin D deficiency, unspecified; Z95.0 Presence of cardiac pacemaker; Z87.891 Personal history of nicotine dependence; X58.XXXD Exposure to other specified factors, subsequent encounter ==

== ENCOUNTER 2018-01-06 17:01 | Inpatient (IN) | payer MEDICARE ==
[~2018-01-06] VITALS: Ht 167.6 cm; Wt 125.0 kg
--- NOTE | ~2018-01-06 | PR ---
[place], [place] PROGRESS NOTE NAME: [id number] UNIT #: [id number] ROOM: 427 DOCTOR: MERLIN RICHEY MD BIRTHDATE: [birth year] DOS: 01/08/2018 SUBJECTIVE: She has been receiving IV furosemide and she claims she has been diuresing very well and her fluid balance is -780 mL for the last 24 hours. She has no shortness of breath or palpitations, swelling in the legs still persists. There is no pain or aching in the legs. She ate well. Her mood is good. Today is her 49th wed anniversary. PHYSICAL EXAMINATION: GENERAL: The patient is very pleasant, alert, sitting in a chair. VITAL SIGNS: Pulse is 66 and regular, blood pressure 128/54. NECK: JVP is normal. AJR is negative. LUNGS: Breath sounds are pretty good with very few adventitious sounds. EXTREMITIES: Edema in the lower extremities still severe with mild erythema. IMPRESSION: 1. Atrial fibrillation with ventricular pacing. 2. Moderate to severe edema of the lower extremities from hypoalbuminemia and may be cellulitis, possibility of diastolic heart failure, still to be considered and she is diuresing well and IV diuretic should be continued while monitoring renal function. MERLIN RICHEY MD CM:PNTRANS [id number] MERLIN RICHEY MD 01/08/18 2352 interface
--- NOTE | ~2018-01-06 | CON ---
[place], [place] REPORT OF CONSULTATION NAME[facility] [id number] UNIT #: [id number] ROOM: 427 DOCTOR: MERLIN RICHEY MD BIRTHDATE: [birth year] DOS: 01/07/2018 HISTORY OF PRESENT ILLNESS: This is a 68-year-old -[place] woman, who had cardiomyopathy at one time, also chronic atrial fibrillation. She had a pacemaker implanted for complete heart block a long time ago and it is because of cardiomyopathy I believe she had a BiV AICD implanted few years ago. She has not had a heart failure recently. She has essential hypertension, hypercholesterolemia, hypothyroidism, mild aortic stenosis, type 2 diabetes mellitus, right eye blindness. She has morbid obesity. She had some chest pain located anteriorly. At times, this is just persistent feeling and it does not seem to be related to activity so much, it has been getting worse. She has had no radiation to the shoulders or into the back. The patient is under lot of stress for her son, who is a drug addict and had been using that and he also is a diabetic with a blood sugar of 1400. So she is totally stressed out. She has not had any PND, orthopnea, but swelling in the legs is chronic with some worsening recently. She is a reasonably active lady, who manages the household. She does not smoke nor does she drink alcoholic beverages. HOME MEDICATIONS: Include allopurinol, atorvastatin, vitamin D, cholecalciferol 5000 units daily, clopidogrel 75 daily, digoxin 0.125 mcg daily, doxycycline 100 mg b.i.d., fluconazole 100 mg daily, furosemide 40 mg daily, levothyroxine 50 mcg daily, lorazepam 1 mg p.r.n., metoprolol succinate 50 mg b.i.d., progesterone 200 mg daily, ranitidine 150 mg daily, tramadol 50 b.i.d., Lantus insulin, and also Humalog. PHYSICAL EXAMINATION: GENERAL: This is a patient, who is moderately obese. She is pleasant and alert. She is not in any distress. There is no fever. No finger clubbing is present. VITAL SIGNS: Pulse is irregular with irregularities at 72 beats per minute, blood pressure 131/86. NECK: Normal JVP. AJR is negative. There is no bruit in the neck. HEART: Auscultation reveals normal A2, but there is grade 2-3/6 early peaking systolic murmur over the aortic area and a mild murmur over the apex is also present. EXTREMITIES: She has essentially clear lungs. There is a 2-3+ edema in the feet and 2+ below the knees with some accompanying erythema. She has quite a bit of excoriated skin and she may have cellulitis. LABORATORY DATA: An ECG showed underlying atrial fibrillation with ventricle pacing. Chest x-ray did not show any pulmonary edema. Digoxin level was 0.94 ng/mL. Hemoglobin 11.9. Serum albumin 2.1, creatinine 1.62, BUN 26. [place], [place] REPORT OF CONSULTATION NAME: [facility]: [id number] UNIT #: [id number] ROOM: 427 DOCTOR: MERLIN RICHEY MD BIRTHDATE: [birth year] IMPRESSION: 1. Chest pain. This seems to be somewhat atypical for myocardial ischemia. She has lot of emotional issues, I think they may be responsible for her symptom, but she does have coronary artery disease. 2. Atrial fibrillation event with ventricular pacing. 3. She has chronic kidney disease. 4. Mild anemia. 5. She has moderate to severe edema of below the knees and partly due to hypoalbuminemia and I think some mild cellulitis may be responsible for this. An echocardiogram was done in November which showed an LV ejection fraction of 60-65%, mild aortic stenosis, and moderate pulmonary hypertension. RECOMMENDATIONS: 1. If her chest discomfort resolved, I do not think we need to perform a Lexiscan Cardiolite study; otherwise, this should be considered. 2. Moderate pulmonary hypertension. This may be partly responsible for edema of the lower extremities. 3. Mild aortic stenosis. 4. Her cardiomyopathy has pretty much resolved with LV ejection fraction of 60-65%. I thank you for this consult. MERLIN RICHEY MD CM:CONSTR:REPORT OF CONSULTATION 1913 01/17/18 0917 interface
--- NOTE | ~2018-01-06 | CON ---
[place], [place] REPORT OF CONSULTATION NAME: [facility] [id number] UNIT #: [id number] ROOM: 427 DOCTOR: ANETA MATTHEW MD BIRTHDATE: [birth year] DOS: 01/08/2018 PSYCHIATRIC CONSULTATION CHIEF COMPLAINT: "I have just been so depressed and stressed out." HISTORY OF PRESENT ILLNESS: This is a 68-year-old white female admitted to the medical floor at [facility] due to significant chest pressure pain and shortness of breath. In the course of her admission, she did convey to the hospitalist that she has been under increasing stress and believes that some of her chest pain is stress related. Much of her stress is the fact that she is dealing with an adult son, who is a long time drug abuser. She reports that the stress has taken its toll on her and she has felt increasingly depressed and despondent. Over the last several weeks, she notices a significant change in her ability to attend her ADLs. She notes poor sleep with difficulty falling asleep, sleep continuity disturbance and contracts director awakening and has even gone days without sleep. Her appetite has been diminished as well. She relates also increasing pain issues. She did sustain a fall, breaking her left leg 9 times requiring multiple surgeries, pins and rods. She rates the pain on a scale of 1 to 10 with 10 being the worst, as a 5, but it is a constant persistent pain that wears her out. She has never seen a psychiatrist, nor has she been on any psychotropics other than lorazepam. She has not been to counseling. She is open to all of these suggestions, however. PAST MEDICAL HISTORY: Remarkable for atrial fibrillation, blindness in her right eye, coronary artery disease, chronic kidney disease stage 4, hypertension, GERD, gout, hyperlipidemia, hypothyroidism, morbid obesity, pacemaker placement, third degree AV block, diabetes and vitamin D deficiency. SOCIAL HISTORY: She does not drink alcohol or use illicit drugs nor does she smoke cigarettes. MENTAL STATUS: She is alert and oriented. Mood is overwhelmingly depressed. Affect is flat, blunted, and constricted. She endorses multiple neurovegetative symptoms. She is not suicidal; however, or homicidal, and there are no self-injurious thoughts. There is no presence of hypomania, nilton or psychosis and memory is fully intact. DIAGNOSIS: Major depression, recurrent, severe. PLAN: I have suggested that she start on Cymbalta 30 mg at bedtime. This should help her with depression, anxiety and the pain. She is willing to follow up with Maria Guadalupe Giles, the nurse practitioner at [facility]. She should also establish a counseling situation as well to help her deal with chronic stress. She does not meet criteria for inpatient stay at the [facility]. [place], [place] REPORT OF CONSULTATION NAME: GERALDINESANGEETHARKJOSSIE J UNIT #: [id number] ROOM: 427 DOCTOR: ANETA MATTHEW MD BIRTHDATE: [birth year] ANETA MATTHEW MD CM:CONSTR:REPORT OF CONSULTATION 0922 01/08/18 2331 interface
[2018-01-06 17:01] VITALS: BP 155/65
[~2018-01-06 17:01] MED LIST changes: -DULOXETINE HCL30 MG PO; -MUCINEX ER600 MG PO
[2018-01-06 17:36] VITALS: BP 130/63
[2018-01-06 17:51] LABS: BASO % 0.4 % (0.0-1.0); EOS # 0.2 10*3/uL (0.0-0.4); EOS % 2.1 % (1.0-4.0); HEMATOCRIT 27.4 % (37.0-47.0); HEMOGLOBIN 8.7 g/dl (12.0-16.0); LYMPH # 1.4 10*3/uL (1.3-4.4); LYMPH % 19.8 % (27.0-41.0); MEAN CELL VOLUME 89.8 fl (81.0-99.0); MEAN CORPUSCULAR HGB 28.5 pg (27.0-31.0); MEAN CORPUSCULAR HGB CONC 31.8 g/dl (33.0-37.0); MEAN PLATELET VOLUME 11.5 fl (9.6-12.3); MONO # 0.6 10*3/uL (0.1-1.0); MONO % 8.8 % (3.0-9.0); NEUT # 4.9 10*3/uL (2.3-7.9); NEUT % 68.3 % (47.0-73.0); PLATELET COUNT AUTOMATED 108 10*3/uL (130-400); RED BLOOD COUNT 3.05 10*6/uL (4.10-5.10); RED CELL DISTRI WIDTH 15.7 % (0-14.5); WHITE BLOOD COUNT 7.1 10*3/uL (4.8-10.8)
[2018-01-06 18:09] LABS: ALBUMIN 2.1 gm/dl (3.1-4.5); ALKALINE PHOSPHATASE 71 U/L (45-117); BUN 19 mg/dl (7-24); CHLORIDE 123 mmol/L (98-107); CREATININE 0.87 mg/dL (0.55-1.02); POTASSIUM 3.2 mmol/L (3.5-5.1); SGOT/AST 11 IU/L (3-35); SGPT/ALT 7 U/L (12-78); SODIUM 147 mmol/L (136-145); TOTAL PROTEIN 4.3 gm/dL (6.4-8.2)
[2018-01-06 18:11] LABS: TROPONIN I < 0.015 ng/ml (<0.045)
[2018-01-06 20:00] VITALS: BP 156/69
[2018-01-06 23:45] LABS: BILIRUBIN NEGATIVE (NEGATIVE); BLOOD NEGATIVE (NEGATIVE); CLARITY CLEAR (CLEAR); COLOR YELLOW (YELLOW); GLUCOSE TRACE (NEGATIVE); KETONE NEGATIVE (NEGATIVE); LEUKO ESTERASE NEGATIVE (NEGATIVE); NITRITE NEGATIVE (NEGATIVE); PH 5.5 (5.0-9.0); UROBILINOGEN 0.2 E.U./dl (0.2-1.0)
[2018-01-07] VITALS: BP 137/97
[2018-01-07 00:07] LABS: EPITHELIAL CELLS 0-2; WBC 0-2 wbc/hpf (0-5)
[2018-01-07 04:07] LABS: BASO # 0.1 10*3/uL (0.0-0.1); BASO % 0.5 % (0.0-1.0); EOS # 0.3 10*3/uL (0.0-0.4); EOS % 2.6 % (1.0-4.0); LYMPH # 2.5 10*3/uL (1.3-4.4); LYMPH % 24.9 % (27.0-41.0); MEAN CELL VOLUME 88.2 fl (81.0-99.0); MEAN CORPUSCULAR HGB 28.3 pg (27.0-31.0); MEAN CORPUSCULAR HGB CONC 32.1 g/dl (33.0-37.0); MEAN PLATELET VOLUME 11.4 fl (9.6-12.3); NEUT # 6.1 10*3/uL (2.3-7.9); NEUT % 61.2 % (47.0-73.0); RED BLOOD COUNT 4.17 10*6/uL (4.10-5.10); RED CELL DISTRI WIDTH 15.8 % (0-14.5)
[2018-01-07 04:24] LABS: ALBUMIN 3.3 gm/dl (3.1-4.5); CREATININE 1.56 mg/dL (0.55-1.02); PHOSPHOROUS 3.4 mg/dL (2.5-4.9); TOTAL PROTEIN 6.8 gm/dL (6.4-8.2)
[2018-01-07 05:25] LABS: HEMATOCRIT 36.8 % (37.0-47.0); PLATELET COUNT AUTOMATED 172 10*3/uL (130-400)
[2018-01-07 05:28] LABS: HEMOGLOBIN 11.8 g/dl (12.0-16.0)
[2018-01-07 06:31] LABS: POTASSIUM 5.3 mmol/L (3.5-5.1)
[2018-01-07 08:00] VITALS: BP 104/49
[2018-01-07 12:00] VITALS: BP 110/56
[2018-01-07 12:05] LABS: BASO % 0.3 % (0.0-1.0); EOS # 0.2 10*3/uL (0.0-0.4); EOS % 2.7 % (1.0-4.0); HEMATOCRIT 37.4 % (37.0-47.0); HEMOGLOBIN 11.9 g/dl (12.0-16.0); LYMPH # 1.9 10*3/uL (1.3-4.4); LYMPH % 21.9 % (27.0-41.0); MEAN CELL VOLUME 89.5 fl (81.0-99.0); MEAN CORPUSCULAR HGB 28.5 pg (27.0-31.0); MEAN CORPUSCULAR HGB CONC 31.8 g/dl (33.0-37.0); MEAN PLATELET VOLUME 10.5 fl (9.6-12.3); MONO # 0.8 10*3/uL (0.1-1.0); MONO % 9.8 % (3.0-9.0); NEUT # 5.6 10*3/uL (2.3-7.9); NEUT % 64.7 % (47.0-73.0); PLATELET COUNT AUTOMATED 182 10*3/uL (130-400); RED BLOOD COUNT 4.18 10*6/uL (4.10-5.10); RED CELL DISTRI WIDTH 15.9 % (0-14.5); WHITE BLOOD COUNT 8.6 10*3/uL (4.8-10.8)
[2018-01-07 12:56] LABS: ALBUMIN 3.3 gm/dl (3.1-4.5); CREATININE 1.65 mg/dL (0.55-1.02); POTASSIUM 5.5 mmol/L (3.5-5.1); TOTAL PROTEIN 6.8 gm/dL (6.4-8.2)
[2018-01-07 16:00] VITALS: BP 131/86
[2018-01-07 20:00] VITALS: BP 108/95
[2018-01-08] VITALS: BP 128/54
[2018-01-08 06:27] LABS: BASO # 0.1 10*3/uL (0.0-0.1); BASO % 0.6 % (0.0-1.0); EOS # 0.3 10*3/uL (0.0-0.4); EOS % 3.2 % (1.0-4.0); HEMATOCRIT 37.9 % (37.0-47.0); HEMOGLOBIN 12.2 g/dl (12.0-16.0); LYMPH # 2.1 10*3/uL (1.3-4.4); LYMPH % 25.5 % (27.0-41.0); MEAN CELL VOLUME 87.9 fl (81.0-99.0); MEAN CORPUSCULAR HGB 28.3 pg (27.0-31.0); MEAN CORPUSCULAR HGB CONC 32.2 g/dl (33.0-37.0); MEAN PLATELET VOLUME 11.1 fl (9.6-12.3); MONO # 0.8 10*3/uL (0.1-1.0); MONO % 9.8 % (3.0-9.0); NEUT # 4.9 10*3/uL (2.3-7.9); NEUT % 60.4 % (47.0-73.0); PLATELET COUNT AUTOMATED 190 10*3/uL (130-400); RED BLOOD COUNT 4.31 10*6/uL (4.10-5.10); RED CELL DISTRI WIDTH 15.8 % (0-14.5); WHITE BLOOD COUNT 8.2 10*3/uL (4.8-10.8)
[2018-01-08 07:02] LABS: ALBUMIN 3.3 gm/dl (3.1-4.5); CREATININE 1.76 mg/dL (0.55-1.02); POTASSIUM 4.6 mmol/L (3.5-5.1)
[2018-01-08 07:04] LABS: TOTAL PROTEIN 7.1 gm/dL (6.4-8.2)
[2018-01-08 08:00] VITALS: BP 128/54
[2018-01-08] MEDS ORDERED: MUCINEX ER600 MG PO (11:08)
[2018-01-08] MEDS ORDERED: DULOXETINE HCL30 MG PO (11:25)
[2018-03-03] MEDS ORDERED: LANTUS SOL100 UNIT/1 SQ (14:47)
[2018-03-03] MEDS ORDERED: ASPIR LOW81 MG PO (14:47)
[2018-03-03] MEDS ORDERED: CELEXA40 MG PO (14:49)
[2018-03-03] MEDS ORDERED: TRAZODONE50 MG PO (14:50)
[2018-03-03] MEDS ORDERED: JANUVIA50 MG PO (14:51)
[2018-03-05] MEDS ORDERED: LASIX20 MG PO (12:23)
[2018-03-05] MEDS ORDERED: TOPROL XL50 M1 PO (12:23)
== END 2018-01-08 11:48 | disposition home or self-care (01) | DRG 264 ==
LOC: ED 17:01 → 4E 18:36 → EDHOLD 18:36 → 4E 19:06
PROVIDERS: Emergency Medicine; Family Medicine; Internal Medicine
PROC: 0JBF0ZZ Excision of Left Upper Arm Subcutaneous Tissue and Fascia, Open Approach (ICD-10-PCS; principal; 2018-01-07)
DX: R07.89 Other chest pain (principal); I25.10 Atherosclerotic heart disease of native coronary artery without angina pectoris; E43 Unspecified severe protein-calorie malnutrition; D69.6 Thrombocytopenia, unspecified; E11.22 Type 2 diabetes mellitus with diabetic chronic kidney disease; E87.0 Hyperosmolality and hypernatremia; E87.2 Acidosis; F33.2 Major depressive disorder, recurrent severe without psychotic features; E87.8 Other disorders of electrolyte and fluid balance, not elsewhere classified; E11.65 Type 2 diabetes mellitus with hyperglycemia; N18.4 Chronic kidney disease, stage 4 (severe); Z68.42 Body mass index [BMI] 45.0-49.9, adult; I50.30 Unspecified diastolic (congestive) heart failure; I42.9 Cardiomyopathy, unspecified; E66.01 Morbid (severe) obesity due to excess calories; I48.0 Paroxysmal atrial fibrillation; E87.6 Hypokalemia; D72.810 Lymphocytopenia; K21.9 Gastro-esophageal reflux disease without esophagitis; D64.9 Anemia, unspecified; F41.1 Generalized anxiety disorder; M1A.9XX0 Chronic gout, unspecified, without tophus (tophi); I35.0 Nonrheumatic aortic (valve) stenosis; X58.XXXA Exposure to other specified factors, initial encounter; E55.9 Vitamin D deficiency, unspecified; E03.9 Hypothyroidism, unspecified; E78.00 Pure hypercholesterolemia, unspecified; I13.10 Hypertensive heart and chronic kidney disease without heart failure, with stage 1 through stage 4 chronic kidney disease, or unspecified chronic kidney disease; S41.102A Unspecified open wound of left upper arm, initial encounter; I27.20 Pulmonary hypertension, unspecified; I34.0 Nonrheumatic mitral (valve) insufficiency; I48.2 Chronic atrial fibrillation; H54.40 Blindness, one eye, unspecified eye; Z79.4 Long term (current) use of insulin; Z95.0 Presence of cardiac pacemaker; Z90.49 Acquired absence of other specified parts of digestive tract; Z95.5 Presence of coronary angioplasty implant and graft; Z98.42 Cataract extraction status, left eye; Z83.3 Family history of diabetes mellitus; Z82.49 Family history of ischemic heart disease and other diseases of the circulatory system; Z88.8 Allergy status to other drugs, medicaments and biological substances; Z91.041 Radiographic dye allergy status; Z79.899 Other long term (current) drug therapy; Y93.89 Activity, other specified; Y92.89 Other specified places as the place of occurrence of the external cause; Y99.8 Other external cause status

== ENCOUNTER → 2018-02-06 | Outpatient (CLI) | payer MEDICARE ==
[~2018-02-06] MED LIST changes: +ASPIR LOW81 MG PO; +CELEXA40 MG PO; +DULOXETINE HCL30 MG PO; +LANTUS SOL100 UNIT/1 SQ; +LASIX20 MG PO; +MUCINEX ER600 MG PO; +TRAZODONE50 MG PO
[2018-02-06 14:35] LABS: BASO # 0.1 10*3/uL (0.0-0.1); BASO % 0.5 % (0.0-1.0); EOS # 0.2 10*3/uL (0.0-0.4); EOS % 1.7 % (1.0-4.0); HEMATOCRIT 38.5 % (37.0-47.0); HEMOGLOBIN 12.8 g/dl (12.0-16.0); LYMPH # 1.8 10*3/uL (1.3-4.4); LYMPH % 18.4 % (27.0-41.0); MEAN CELL VOLUME 87.1 fl (81.0-99.0); MEAN CORPUSCULAR HGB CONC 33.2 g/dl (33.0-37.0); MEAN PLATELET VOLUME 10.9 fl (9.6-12.3); MONO # 0.8 10*3/uL (0.1-1.0); MONO % 8.3 % (3.0-9.0); NEUT # 6.9 10*3/uL (2.3-7.9); NEUT % 70.6 % (47.0-73.0); PLATELET COUNT AUTOMATED 199 10*3/uL (130-400); RED BLOOD COUNT 4.42 10*6/uL (4.10-5.10); WHITE BLOOD COUNT 9.8 10*3/uL (4.8-10.8)
[2018-02-06 15:05] LABS: ALBUMIN 3.7 gm/dl (3.1-4.5); CREATININE 1.88 mg/dL (0.55-1.02); POTASSIUM 5.4 mmol/L (3.5-5.1); TOTAL PROTEIN 7.5 gm/dL (6.4-8.2)
== END | disposition home or self-care (01) ==
LOC: LAB 14:13
PROVIDERS: Internal Medicine
DX: J43.9 Emphysema, unspecified (principal); E11.9 Type 2 diabetes mellitus without complications; I10 Essential (primary) hypertension; I48.91 Unspecified atrial fibrillation; W57.XXXA Bitten or stung by nonvenomous insect and other nonvenomous arthropods, initial encounter; Z95.0 Presence of cardiac pacemaker

== ENCOUNTER → 2018-02-09 | Outpatient (CLI) | payer MEDICARE ==
[~2018-02-09] MED LIST changes: -ASPIR LOW81 MG PO; -CELEXA40 MG PO; -LANTUS SOL100 UNIT/1 SQ; -LASIX20 MG PO; -TRAZODONE50 MG PO
[2018-02-09 13:12] LABS: CREATININE 1.75 mg/dL (0.55-1.02); POTASSIUM 4.9 mmol/L (3.5-5.1)
[2018-02-09 13:22] LABS: DIGOXIN 0.62 ng/ml (0.8-2.0)
== END | disposition home or self-care (01) ==
LOC: LAB 12:12
PROVIDERS: Internal Medicine
DX: I51.7 Cardiomegaly (principal); E87.5 Hyperkalemia; I10 Essential (primary) hypertension; I48.91 Unspecified atrial fibrillation; E11.9 Type 2 diabetes mellitus without complications; Z95.0 Presence of cardiac pacemaker

== ENCOUNTER 2018-04-23 13:44 | Inpatient (IN) | payer MEDICARE ==
[~2018-04-23] VITALS: Ht 167.6 cm; Wt 115.7 kg
--- NOTE | ~2018-04-23 | CON ---
[place], [place] REPORT OF CONSULTATION NAME: JOSSIE DIAZ UNIT #: [id number] ROOM: 521 DOCTOR: MERLIN RICHEY MD BIRTHDATE: [birth year] DOS: 04/26/2018 HISTORY OF PRESENT ILLNESS: A consult was called in to me on the night of the and in the afternoon of the I was on my way to see the patient and called the 5th floor to see if there indeed was a consult for me. The board medical records clerk and one of the nurses assured me that there was none, so I turned back and the nurse called me today about this consult again. I regret for this delay in seeing the patient. This is a 68-year-old -Turk[place] woman with history of chronic atrial fibrillation that goes back 10 years. She has had nonischemic cardiomyopathy and has a biventricular AICD that was implanted some years ago. Her ejection fraction subsequently had improved. She has essential hypertension, hypercholesterolemia, hypothyroidism, mild aortic stenosis, type 2 diabetes mellitus, chronic kidney disease stage 3, blind in the right eye, has morbid obesity. She does not smoke, nor does she drink alcoholic beverages. She was seen in my office by the nurse practitioner and was advised to follow up with Dr. Foreman as she required hospitalization for heart failure. She gained quite a bit of weight and has been more short of breath. She has not had any palpitation. AICD has not discharged. She had some PND, but no cough or fever or chills. She had quite a bit of swelling in the lower extremities. HOME MEDICATIONS: Include allopurinol, amiodarone 100 mg daily, aspirin 81 mg daily, atorvastatin 40 daily, cholecalciferol 5000 units, citalopram 40 mg daily, clopidogrel 75 mg daily, digoxin 125 mcg daily, furosemide 40 mg b.i.d. p.o., levothyroxine 50 mcg daily, lorazepam 1 mg p.r.n., metoprolol succinate 100 mg b.i.d., potassium chloride 10 mEq daily, progesterone 200 mg daily, ranitidine 150, tramadol 50 b.i.d., trazodone 50 at bedtime and insulin. PHYSICAL EXAMINATION: GENERAL: The patient is very pleasant and alert. She is not short of breath. She is not anemic. There is no thyromegaly or finger clubbing. VITAL SIGNS: Pulse is regular at 72, blood pressure 122/56. NECK: JVP is about 10 cm with a positive AJR (despite negative 7 liters of fluid balance in the last 3 days). CARDIAC: Auscultation reveals no obvious murmurs. She still has 3+ edema in the lower extremities. RESPIRATORY: Lungs are surprisingly clear with occasional rhonchi. ABDOMEN: Supple, nontender. LABORATORY DATA: BUN was 36 and creatinine 1.77 on the , the day of admission and today BUN is 42, creatinine is 1.93. Troponin I levels are normal. Serum digoxin level 0.11 ng/mL. Hemoglobin is 12.3 g/dL. Chest x-ray on admission demonstrated cardiomegaly and a very mild pulmonary congestion. An echocardiogram in November of this year demonstrated EF of 60-65%, mild LVH, normal right heart and mildly calcified aortic valve and moderate pulmonary hypertension and moderate pulmonic regurgitation. [place], [place] REPORT OF CONSULTATION NAME: JOSSIE DIAZ UNIT #: [id number] ROOM: 521 DOCTOR: MERLIN RICHEY MD BIRTHDATE: [birth year] IMPRESSION AND PLAN: 1. This patient has diastolic heart failure and is chronic with acute exacerbation. She has responded very well to modest dose of loop diuretic given intravenously. I recommend that we should continue this for a couple of days to establish euvolemic state, i.e., have heart failure, adequately compensated. Her creatinine may creep up a little bit, but I would not worry too much in this regard. 1. Chronic kidney disease with slight exacerbation. 2. Chronic atrial fibrillation. I think we should discontinue amiodarone and digoxin altogether as they do not play any roll anymore. MERLIN RICHEY MD CM:CONSTR:REPORT OF CONSULTATION 1359 04/26/18 2002 interface
--- NOTE | ~2018-04-23 | EKG ---
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
[~2018-04-23 13:44] MED LIST changes: +ASPIR LOW81 MG PO; +CELEXA40 MG PO; +LANTUS SOL100 UNIT/1 SQ; +LASIX20 MG PO; +TRAZODONE50 MG PO
[2018-04-23 13:47] VITALS: BP 117/71
[2018-04-23 14:42] LABS: BASO # 0.1 10*3/uL (0.0-0.1); BASO % 0.6 % (0.0-1.0); EOS # 0.2 10*3/uL (0.0-0.4); HEMOGLOBIN 12.3 g/dl (12.0-16.0); LYMPH # 1.9 10*3/uL (1.3-4.4); LYMPH % 21.9 % (27.0-41.0); MEAN CORPUSCULAR HGB 28.5 pg (27.0-31.0); MEAN CORPUSCULAR HGB CONC 32.4 g/dl (33.0-37.0); MEAN PLATELET VOLUME 10.6 fl (9.6-12.3); MONO # 0.8 10*3/uL (0.1-1.0); NEUT # 5.7 10*3/uL (2.3-7.9); NEUT % 65.9 % (47.0-73.0); PLATELET COUNT AUTOMATED 180 10*3/uL (130-400); RED BLOOD COUNT 4.32 10*6/uL (4.10-5.10); RED CELL DISTRI WIDTH 15.9 % (0-14.5); WHITE BLOOD COUNT 8.6 10*3/uL (4.8-10.8)
[2018-04-23 14:59] LABS: ALBUMIN 3.4 gm/dl (3.1-4.5); ALKALINE PHOSPHATASE 125 U/L (45-117); BUN 36 mg/dl (7-24); CHLORIDE 108 mmol/L (98-107); CREATININE 1.77 mg/dL (0.55-1.02); SGOT/AST 21 IU/L (3-35); SGPT/ALT 21 U/L (12-78); SODIUM 139 mmol/L (136-145); TOTAL PROTEIN 7.5 gm/dL (6.4-8.2)
[2018-04-23 15:01] LABS: TROPONIN I < 0.015 ng/ml (<0.045)
[2018-04-23 15:33] VITALS: BP 116/62
[2018-04-23] MEDS ORDERED: KLOR-CON 1010 ME1 PO (16:19)
[2018-04-23] MEDS ORDERED: METOPROLOL SUCC50 M1 PO (16:20)
[2018-04-23] MEDS ORDERED: AMIODARONE HCL100 M1 PO (16:22)
[2018-04-23 20:00] VITALS: BP 97/69
[2018-04-23 23:00] VITALS: BP 120/78
[2018-04-24] VITALS: BP 100/78
[2018-04-24 02:37] LABS: BILIRUBIN NEGATIVE (NEGATIVE); BLOOD NEGATIVE (NEGATIVE); CLARITY CLEAR (CLEAR); COLOR ORANGE (YELLOW); GLUCOSE NEGATIVE (NEGATIVE); KETONE NEGATIVE (NEGATIVE); LEUKO ESTERASE NEGATIVE (NEGATIVE); NITRITE NEGATIVE (NEGATIVE); PH 5.5 (5.0-9.0); SPECIFIC GRAVITY <= 1.005 (1.005-1.030); UROBILINOGEN 0.2 E.U./dl (0.2-1.0)
[2018-04-24 02:43] LABS: BACTERIA TRACE; RBC 0-2 rbc/hpf (0-2); WBC 0-2 wbc/hpf (0-5)
[2018-04-24 06:47] LABS: BASO # 0.1 10*3/uL (0.0-0.1); BASO % 0.8 % (0.0-1.0); EOS # 0.2 10*3/uL (0.0-0.4); HEMATOCRIT 35.7 % (37.0-47.0); HEMOGLOBIN 11.5 g/dl (12.0-16.0); LYMPH # 1.9 10*3/uL (1.3-4.4); LYMPH % 25.2 % (27.0-41.0); MEAN CELL VOLUME 87.7 fl (81.0-99.0); MEAN CORPUSCULAR HGB 28.3 pg (27.0-31.0); MEAN CORPUSCULAR HGB CONC 32.2 g/dl (33.0-37.0); MEAN PLATELET VOLUME 10.8 fl (9.6-12.3); MONO # 0.8 10*3/uL (0.1-1.0); MONO % 10.3 % (3.0-9.0); NEUT # 4.6 10*3/uL (2.3-7.9); PLATELET COUNT AUTOMATED 170 10*3/uL (130-400); RED BLOOD COUNT 4.07 10*6/uL (4.10-5.10); RED CELL DISTRI WIDTH 15.8 % (0-14.5); WHITE BLOOD COUNT 7.5 10*3/uL (4.8-10.8)
[2018-04-24 06:51] LABS: CREATININE 1.84 mg/dL (0.55-1.02)
[2018-04-24 08:00] VITALS: BP 114/65
[2018-04-24 12:00] VITALS: BP 100/41
[2018-04-24 16:00] VITALS: BP 119/54
[2018-04-24 20:00] VITALS: BP 95/56
[2018-04-25] VITALS: BP 111/53
[2018-04-25 07:25] LABS: CREATININE 1.93 mg/dL (0.55-1.02); POTASSIUM 4.6 mmol/L (3.5-5.1)
[2018-04-25 08:00] VITALS: BP 120/66
[2018-04-25 12:00] VITALS: BP 104/50
[2018-04-25 16:00] VITALS: BP 104/50
[2018-04-25 20:00] VITALS: BP 119/75; BP 121/72
[2018-04-26] VITALS: BP 106/55
[2018-04-26 08:00] VITALS: BP 106/50
[2018-04-26 12:00] VITALS: BP 122/56
[2018-04-26 12:33] VITALS: BP 111/75
[2018-04-26 16:00] VITALS: BP 114/53; BP 118/74
[2018-04-26 20:00] VITALS: BP 93/74
[2018-04-27] VITALS: BP 122/57
[2018-04-27 07:07] LABS: CREATININE 1.85 mg/dL (0.55-1.02); POTASSIUM 3.8 mmol/L (3.5-5.1)
[2018-04-27 08:00] VITALS: BP 102/54
[2018-04-27] MEDS ORDERED: LASIX40 MG PO (13:04)
== END 2018-04-27 14:21 | disposition home or self-care (01) | DRG 291 ==
LOC: ED 13:44 → 5E 14:47 → EDHOLD 14:47 → 5E 15:17
PROVIDERS: Internal Medicine; Internal Medicine Nephrology; Nurse Practitioner
DX: I13.0 Hypertensive heart and chronic kidney disease with heart failure and stage 1 through stage 4 chronic kidney disease, or unspecified chronic kidney disease (principal); I50.33 Acute on chronic diastolic (congestive) heart failure; N17.0 Acute kidney failure with tubular necrosis; Z68.41 Body mass index [BMI] 40.0-44.9, adult; N18.4 Chronic kidney disease, stage 4 (severe); I42.9 Cardiomyopathy, unspecified; E87.5 Hyperkalemia; E11.22 Type 2 diabetes mellitus with diabetic chronic kidney disease; E11.319 Type 2 diabetes mellitus with unspecified diabetic retinopathy without macular edema; E78.00 Pure hypercholesterolemia, unspecified; E66.01 Morbid (severe) obesity due to excess calories; M10.9 Gout, unspecified; I25.10 Atherosclerotic heart disease of native coronary artery without angina pectoris; F41.1 Generalized anxiety disorder; K21.9 Gastro-esophageal reflux disease without esophagitis; E03.9 Hypothyroidism, unspecified; E05.90 Thyrotoxicosis, unspecified without thyrotoxic crisis or storm; I35.0 Nonrheumatic aortic (valve) stenosis; I48.2 Chronic atrial fibrillation; I27.20 Pulmonary hypertension, unspecified; H54.61 Unqualified visual loss, right eye, normal vision left eye; Z91.041 Radiographic dye allergy status; Z79.01 Long term (current) use of anticoagulants; Z79.899 Other long term (current) drug therapy; Z79.4 Long term (current) use of insulin; Z88.8 Allergy status to other drugs, medicaments and biological substances; Z79.82 Long term (current) use of aspirin; Z90.49 Acquired absence of other specified parts of digestive tract; Z95.5 Presence of coronary angioplasty implant and graft; Z98.42 Cataract extraction status, left eye; Z82.49 Family history of ischemic heart disease and other diseases of the circulatory system; Z83.3 Family history of diabetes mellitus; Z80.8 Family history of malignant neoplasm of other organs or systems; Z95.810 Presence of automatic (implantable) cardiac defibrillator

== ENCOUNTER 2018-08-10 14:18 | Inpatient (IN) | payer MEDICARE ==
[~2018-08-10] VITALS: Ht 167.6 cm; Wt 124.9 kg
--- NOTE | ~2018-08-10 | EKG ---
[place], [place] ELECTROCARDIOGRAM REPORT NAME: JOSSIE DIAZ UNIT #: [id number] ROOM: 428 DOCTOR: IVAN DRAFT REPORT BIRTHDATE: [birth year] [facility] Test Date: 2018-08-10 Test Time: 14:33:40 Pat Name: JOSSIE DIAZ Department: Room: 428 Gender: F Senior Ui Developer: TERRANCE : 1950 Requested By: TEREZA CHILDS Order Number: [id number] Reading MD: Jairon Traylor MD Measurements Intervals [place] Rate: 80 P: SD: QRS: 160 QRSD: 139 T: 18 QT: 476 QTc: 550 Interpretive Statements Afib/flut and V-paced complexes Intrinsic QRS complexes No further analysis attempted due to paced rhythm Compared to ECG 04/23/2018 14:38:46 No significant changes Electronically Signed On 08-14-2018 9:28:36 PST by Jairon Traylor MD CM:EKGRPT:ELECTROCARDIOGRAM REPORT 1433 0928 TEREZA LOVE DRAFT REPORT TEREZA CHILDS MD
--- NOTE | ~2018-08-10 | EKG ---
[place], [place] ELECTROCARDIOGRAM REPORT NAME: JOSSIE DIAZ UNIT #: [id number] ROOM: 428 DOCTOR: IVAN DRAFT REPORT BIRTHDATE: [birth year] [facility] Test Date: 2018-08-10 Test Time: 20:24:07 Pat Name: JOSSIE DIAZ Department: Room: 428 Gender: F Network Security Architect: : 1950 Requested By: TEREZA CHILDS Order Number: [id number] Reading MD: Jairon Traylor MD Measurements Intervals [place] Rate: 78 P: 26 MS: 81 QRS: -62 QRSD: 140 T: QT: 347 QTc: 396 Interpretive Statements Ventricular-paced complexes No further rhythm analysis attempted due to paced rhythm Electronically Signed On 08-14-2018 9:34:45 PST by Jairon Traylor MD CM:EKGRPT:ELECTROCARDIOGRAM REPORT 23 0934 TEREZA LOVE DRAFT REPORT TEREZA CHILDS MD
--- NOTE | ~2018-08-10 | EKG ---
[place], [place] ELECTROCARDIOGRAM REPORT NAME: JOSSIE DIAZ UNIT #: [id number] ROOM: 428 DOCTOR: IVAN DRAFT REPORT BIRTHDATE: [birth year] [facility] Test Date: 2018-08-10 Test Time: 18:10:55 Pat Name: JOSSIE DIAZ Department: Room: 428 Gender: F Gas Engine Repairer: : 1950 Requested By: TEREZA CHILDS Order Number: [id number] Reading MD: Jairon Traylor MD Measurements Intervals [place] Rate: 72 P: 0 NC: QRS: -61 QRSD: 137 T: 129 QT: 541 QTc: 593 Interpretive Statements ventricular pacing with underlying a fib No further analysis attempted due to paced rhythm Baseline wander in lead(s) I,III,aVL Compared to ECG 04/23/2018 14:38:46 No significant changes Electronically Signed On 08-14-2018 9:33:06 PST by Jairon Traylor MD CM:EKGRPT:ELECTROCARDIOGRAM REPORT 1810 0933 TEREZA SALASANY DRAFT REPORT TEREZA CHILDS MD
--- NOTE | ~2018-08-10 | CON ---
[place], [place] REPORT OF CONSULTATION NAME[id number] UN[facility] #: [id number] ROOM: 428 DOCTOR: JERZY STONER MD BIRTHDATE: [birth year] DOS: 08/11/2018 HISTORY OF PRESENT ILLNESS: The patient is a 68-year-old female. I am covering for Dr. Traylor. The patient with a history of biventricular ICD, morbid obesity, history of ischemic cardiomyopathy, previous cardiac intervention. The patient had 2 recent shocks of the AICD. Amiodarone was increased from 100 mg daily to [address] Renteria on Friday and apparently she was readmitted with an AICD discharge. The patient said that it shocked once. The patient has a history of a cardiomyopathy, but however, the last EF is about 55% from what I see. Her labs are within normal limits. Hemodynamically stable. She denies any chest discomfort. Does have chronic kidney disease also. PAST MEDICAL HISTORY: Significant for hypertension, atrial fibrillation, history of bleeding issues, atrial fibrillation, chronic kidney disease, AICD, obesity, and ischemic cardiomyopathy. PAST SURGICAL HISTORY: Dilatation and curettage, cardioversion, cardiac catheterization intervention, permanent pacemaker, AICD. FAMILY HISTORY: Not contributory. SOCIAL HISTORY: Denies any alcohol abuse. ALLERGIES: VERAPAMIL. HOME MEDICATIONS: Amiodarone 200 daily, Lasix 60 b.i.d., aspirin, metoprolol 100 b.i.d., and clopidogrel. REVIEW OF SYSTEMS: CONSTITUTIONAL: No fever, no chills. HEENT: No visual disturbance or hearing problems. CARDIOVASCULAR: As per HPI. GASTROINTESTINAL: No nausea, no vomiting. GENITOURINARY: No dysuria. PHYSICAL EXAMINATION: VITAL SIGNS: Blood pressure is 130/70, paced rhythm. Morbidly obese. HEENT: Elevated JVD. LUNGS: Diminished breath sounds. HEART: Sounds are regular. ABDOMEN: Obese, soft, nontender. EXTREMITIES: About 2+ edema. NEUROLOGIC: Stable. LABORATORY DATA: Sodium 138, potassium 4.7, creatinine is 2. Troponin is 0.056. Hemoglobin 13.4, hematocrit 40. EKG, paced rhythm. IMPRESSION: Defibrillator discharge, chronic kidney disease, hypertension, hyperlipidemia, coronary artery disease, and cardiomyopathy. [place], [place] REPORT OF CONSULTATION NAME: JOSSIE DIAZ UNIT #: [id number] ROOM: 428 DOCTOR: JERZY STONER MD BIRTHDATE: [birth year] RECOMMENDATIONS: Continue with amiodarone, metoprolol as ordered. Await ICD to be interrogated. Increase activity and we will follow up. JREZY STONER MD CM:CONSTR:REPORT OF CONSULTATION [id number] 08/11/18 1430 interface
[~2018-08-10 14:18] MED LIST changes: +AMIODARONE HCL100 M1 PO
[2018-08-10 14:19] VITALS: BP 145/38
[2018-08-10] MEDS ORDERED: AMIODARONE HYD200 MG PO (14:23)
[2018-08-10 14:47] LABS: BASO # 0.1 10*3/uL (0.0-0.1); BASO % 0.6 % (0.0-1.0); EOS # 0.1 10*3/uL (0.0-0.4); EOS % 1.6 % (1.0-4.0); HEMOGLOBIN 13.4 g/dl (12.0-16.0); LYMPH # 1.5 10*3/uL (1.3-4.4); LYMPH % 16.7 % (27.0-41.0); MEAN CELL VOLUME 89.3 fl (81.0-99.0); MEAN CORPUSCULAR HGB 29.9 pg (27.0-31.0); MEAN CORPUSCULAR HGB CONC 33.5 g/dl (33.0-37.0); MEAN PLATELET VOLUME 9.8 fl (9.6-12.3); MONO # 0.7 10*3/uL (0.1-1.0); MONO % 8.5 % (3.0-9.0); NEUT # 6.3 10*3/uL (2.3-7.9); PLATELET COUNT AUTOMATED 199 10*3/uL (130-400); RED BLOOD COUNT 4.48 10*6/uL (4.10-5.10); RED CELL DISTRI WIDTH 14.7 % (0-14.5); WHITE BLOOD COUNT 8.7 10*3/uL (4.8-10.8)
[2018-08-10 14:58] LABS: ACT PARTIAL THROMBO TIME 24.2 SECONDS (20.8-31.5)
[2018-08-10 15:01] LABS: ALBUMIN 3.7 gm/dl (3.1-4.5); CREATININE 2.07 mg/dL (0.55-1.02); POTASSIUM 4.7 mmol/L (3.5-5.1); TOTAL PROTEIN 7.8 gm/dL (6.4-8.2)
[2018-08-10 15:02] LABS: TROPONIN I 0.024 ng/ml (<0.045)
[2018-08-10 16:15] VITALS: BP 124/60
[2018-08-10 17:20] VITALS: BP 130/74
--- NOTE | 2018-08-10 17:44 | NUR ---
PT HAS 5 SMALL, ROUND AREAS THAT ARE HARD DRIED SCABS. THEY ARE NOT OPEN AND DO NOT REQUIRE ANY TREATMENT SURROUNDING SKIN IS INTACT AND DOES JOSE. 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 THESE AREAS ARE TO LEFT SHOULDER/SCAPULA. NO PHOTOS TAKEN.
[2018-08-10 18:00] VITALS: BP 97/76
--- NOTE | 2018-08-10 18:04 | NUR ---
PT WAS STABLE AND READY FOR TRANSFER TO ADMISSION BED.
--- NOTE | 2018-08-10 18:11 | NUR ---
A 68, admitted to 4E, under the services of PILAR Beasley MD with a diagnosis of HYPOTHYROIDISM, DEFIBRILLATION DISCHARGE, ACUTE ON CHRONIC KIDNEY INJURY. Chief complaint is BASIC NEEDS/OTHER COMPLAINTS. Patient arrived via ambulatory from ER. Monitor applied. Initial assessment completed. Vital signs taken and recorded. PILAR BEASLEY MD notified of admission to the unit. Orders received. See assessment for past medical history, medications and allergies. Patient and/or family oriented to unit. [facility] visitation policy reviewed. Clothing/patient valuable form completed. WILFREDO ROTHMAN
[2018-08-10] MEDS ORDERED: LASIX40 MG PO (18:33)
--- NOTE | 2018-08-10 18:49 | NUR ---
MED REC UP TO DATE PER PATIENT AND MED CLAIM HISTORY.
--- NOTE | 2018-08-10 18:49 | NUR ---
NOTIFIED DR PABLO THAT THE PATIENT'S TROP CAME BACK ELEVATED. 0.048
--- NOTE | 2018-08-10 19:29 | NUR ---
DR. RICHEY NOTIFIED OF CONSULT FOR FIRING OF AICD. SAID HE WILL SEE HER IN THE MORNING.
--- NOTE | 2018-08-10 19:33 | NUR ---
DR. ARROYO NOTIFIED OF DR. RICHEY BEING CONSULTED AND WHAT HE SAID.
--- NOTE | 2018-08-10 21:04 | NUR ---
DR. ANDERSEN NOTIFIED OF CRITICAL TROPONIN OF O.O56.
--- NOTE | 2018-08-10 22:43 | NUR ---
Convo[facility]ine NOTIFIED OF NEED FOR PACEMAKER CHECK BY JONATHAN PERRY.
[2018-08-11] VITALS: BP 110/50
--- NOTE | 2018-08-11 00:38 | NUR ---
PATIENT MEDICATED WITH ATIVAN FOR ANXIETY AND CRYING IN ROOM. WILL MONITOR FOR EFFECTIVENESS.
--- NOTE | 2018-08-11 02:23 | NUR ---
ATIVAN EFFECTIVE. PATIENT IN BED SLEEPING AT THIS TIME. NO SIGNS OR SYMPTOMS OF DISTRESS NOTED. RESPIRATIONS REGULAR AND NON-LABORED. WILL CONTINUE TO MONITOR. CALL LIGHT IN REACH.
[2018-08-11 06:11] LABS: ALBUMIN 3.4 gm/dl (3.1-4.5); CREATININE 2.04 mg/dL (0.55-1.02); FREE T4 0.9 ng/dl (0.76-1.46); PHOSPHOROUS 4.1 mg/dL (2.5-4.9); POTASSIUM 4.7 mmol/L (3.5-5.1); TOTAL PROTEIN 7.2 gm/dL (6.4-8.2)
[2018-08-11 06:14] LABS: BASO # 0.1 10*3/uL (0.0-0.1); BASO % 0.6 % (0.0-1.0); EOS # 0.2 10*3/uL (0.0-0.4); EOS % 2.7 % (1.0-4.0); HEMATOCRIT 38.4 % (37.0-47.0); HEMOGLOBIN 12.2 g/dl (12.0-16.0); LYMPH # 2.2 10*3/uL (1.3-4.4); LYMPH % 25.6 % (27.0-41.0); MEAN CELL VOLUME 91.4 fl (81.0-99.0); MEAN CORPUSCULAR HGB CONC 31.8 g/dl (33.0-37.0); MEAN PLATELET VOLUME 10.8 fl (9.6-12.3); NEUT # 5.2 10*3/uL (2.3-7.9); NEUT % 59.8 % (47.0-73.0); PLATELET COUNT AUTOMATED 181 10*3/uL (130-400); WHITE BLOOD COUNT 8.7 10*3/uL (4.8-10.8)
[2018-08-11 06:35] LABS: ACT PARTIAL THROMBO TIME 23.6 SECONDS (20.8-31.5)
[2018-08-11 07:34] LABS: BILIRUBIN NEGATIVE (NEGATIVE); BLOOD NEGATIVE (NEGATIVE); CLARITY CLEAR (CLEAR); COLOR YELLOW (YELLOW); GLUCOSE NEGATIVE (NEGATIVE); KETONE NEGATIVE (NEGATIVE); LEUKO ESTERASE NEGATIVE (NEGATIVE); NITRITE NEGATIVE (NEGATIVE); PH 5.5 (5.0-9.0); SPECIFIC GRAVITY 1.015 (1.005-1.030); UROBILINOGEN 0.2 E.U./dl (0.2-1.0)
[2018-08-11 07:52] LABS: RBC 0-2 rbc/hpf (0-2)
--- NOTE | 2018-08-11 07:54 | NUR ---
Dr. Hooker at patients bedside. Reviewed medications. Contact Dr. Traylor after pace maker interogatted.
[2018-08-11 08:01] VITALS: BP 96/64
--- NOTE | 2018-08-11 09:00 | NUR ---
Prism Measurer in to talk to patient. Patient states lives at home with her . There are few steps in the home. Physician: Dr. Constantino Foreman Pharmacy: [facility] Home health services: has had [facility] in the past and doesn't want them again Patient's level of ADLs: INDEPENDENT Patient has working utilities: yes DME: none Follow-up physician's appointment after d/c: she prefers to make her own follow up appt after discharge Does patient want to access PORTAL?: no Discharge plan discussed with patient. She is sitting on the edge of the bed eating breakfast. She lives at home with her . She is independent in her ADLs and ambulation. Discussed home health services and she denies any home needs at this time and request not to have [facility]. When medically stable she will be discharged to home. RITA PRICE
--- NOTE | 2018-08-11 10:15 | NUR ---
Spoke with Dr. Phoenix regarding patients low blood pressures. See new orders.
[2018-08-11 12:00] VITALS: BP 128/60
--- NOTE | 2018-08-11 14:10 | NUR ---
Rechecked blood glucose was 91. Patient had no signs of distress and stated she felt alot better.
--- NOTE | 2018-08-11 15:54 | NUR ---
Was called to patients room because she said it felt like her sugar was low. Patient was diaphoretic and anxious. Blood sugar was 57. Gave the patient 8 ounces of orange juice. with 4-6 packets of sugar. Contacted Dr. Ruiz for dextrose order.
[2018-08-11 16:00] VITALS: BP 129/61
--- NOTE | 2018-08-11 18:14 | NUR ---
Spoke with Gayle Cuellar the [employer] and he said he was just leaving [place] at the time of call. He said he will be here in the morning. His orion phone number is
--- NOTE | 2018-08-11 19:04 | NUR ---
Contact Dr. Traylor with interogation results and Dr. Traylor is to read echo.
[2018-08-11 20:00] VITALS: BP 107/48
[2018-08-12] VITALS: BP 119/58
--- NOTE | 2018-08-12 04:27 | NUR ---
PATIENT MEDICATED WITH ATIVAN FOR COMPLAINTS OF ANXIETY AND TRAMADOL FOR COMPLAINTS OF GENERALIZED PAIN. WILL CONTINUE TO MONITOR. CALL LIGHT IN REACH.
[2018-08-12 08:00] VITALS: BP 120/70
[2018-08-12 08:42] LABS: ALBUMIN 3.2 gm/dl (3.1-4.5); CREATININE 1.98 mg/dL (0.55-1.02); TOTAL PROTEIN 6.7 gm/dL (6.4-8.2)
--- NOTE | 2018-08-12 09:00 | NUR ---
[employer] Technologies Specialist in to see patient. No new needs or request at this time. She denies any home needs. When medically stable she will be discharged to home.
--- NOTE | 2018-08-12 11:49 | NUR ---
ROBINA INTERROGATED. DR CUETO IN PT ROOM AND RECEIVED RESULTS AT THAT TIME. I CONTACTED DR RICHEY TO NOTIFY HIM AND HE STATED HE ALREADY SPOKE TO SOMEONE ABOUT WHAT IT READ. HE STATED TO KEEP THE SAME MEDS ORDERED NOW AND FOR HER TO FOLLOW UP IN [facility] OFFICE IN 2 WEEKS.
--- NOTE | 2018-08-12 11:53 | NUR ---
DR ARROYO CALLED AND UPDATED REQUESTED REGARDING DR RICHEY'S ORDERS. SHE STATED SHE WILL BE IN TO SEE HER SHORTLY. NO NEW ORDERS RECEIVED.
[2018-08-12 12:00] VITALS: BP 124/83
--- NOTE | 2018-08-12 12:33 | NUR ---
C/O PAIN TO LEG 5/10. TRAMADOL GIVEN UPON REQUEST. WILL CONT TO MONITOR. CALL LIGHT IN REACH.
--- NOTE | 2018-08-12 14:58 | NUR ---
I WAS IN THE PT ROOM WHILE PACER WAS INTERROGATED WELL DR CUETO AND THE RESIDENT. PER [employer] REP, SYLVIE [phone], HE STATED THE DEFIB DISCHARGED BECAUSE THE PT HR GOT TO 191 MULTIPLE TIMES AND THE DEFIB IS SET TO 188. THE PT WAS IN ATRIAL TACHYCARDIA THE ENTIRE TIME. SYLVIE NOTIFIED DR RICHEY AFTER LEAVING THE HOSPITAL.
--- NOTE | 2018-08-12 15:28 | NUR ---
PT DENIES NEEDS. NO SIGNS OF DISTRESS. TALKING ON PHONE.
[2018-08-12 16:00] VITALS: BP 115/68
--- NOTE | 2018-08-12 18:04 | NUR ---
SPOKE TO DR CUETO'S RESIDENT ALYSSA AND NOTIFIED HIM THAT PT BS WAS 56 AFTER SHE STATED SHE FELT HYPOGLYCEMIC AND SHE WAS DIAPHORETIC. DEXTROSE GIVEN IV.
[2018-08-12 20:00] VITALS: BP 118/71
[2018-08-13] VITALS: BP 118/59
--- NOTE | 2018-08-13 04:24 | NUR ---
PATIENT MEDICATED WITH DULCOLAX PO FOR COMPLAINTS OF CONSTIPATION. WILL CONTINUE TO MONITOR. CALL LIGHT IN REACH.
--- NOTE | 2018-08-13 04:49 | NUR ---
24 HR chart check completed.
[2018-08-13 08:00] VITALS: BP 116/68
[2018-08-13 08:10] LABS: ALBUMIN 3.4 gm/dl (3.1-4.5); CREATININE 1.94 mg/dL (0.55-1.02); POTASSIUM 4.9 mmol/L (3.5-5.1); TOTAL PROTEIN 7.5 gm/dL (6.4-8.2)
--- NOTE | 2018-08-13 09:09 | NUR ---
DR ISRAEL CALLED FOR PATIENT'S REQUEST FOR FLEET ENEMA FOR COMPLAINTS OF CONSTIPATION. LAST BM 08/10, DULCOLAZ GIVEN 08/13 AT 424. WAITING FOR NEW ORDERS.
--- NOTE | 2018-08-13 11:49 | NUR ---
PT BS 73. PATIENT GIVEN STRAWBERRY ICE CREAM. WILL MONITOR.
[2018-08-13 12:00] VITALS: BP 119/50
--- NOTE | 2018-08-13 13:00 | NUR ---
PATIENT STATES SHE IS FEELING SHAKY AND THAT HER BS IS LOW. RECHECKED- BS 63. PATIENT GIVEN ORANGE JUICE, ORANGE JUICE WITH SUGAR, AND 2 PACKETS OF GRAMHAM CRACKERS. WILL MONITOR.
[2018-08-13] MEDS ORDERED: TOPROL XL50 M1 PO (13:45)
[2018-08-13] MEDS ORDERED: LEVOTHYROXINE75 MCG PO (13:45)
--- NOTE | 2018-08-13 14:25 | NUR ---
Discharge instructions reviewed with patient/family. Patient receptive and verbalizes understanding. Follow-up care arranged. Written instructions given to patient/family. DISCHARGED VIA WHEELCHAIR WITH [facility]. XIN ESCOBEDO
[2018-11-24] MEDS ORDERED: KLOR-CON M2020 ME1 PO ×2 (14:13→14:27)
[2019-01-11] MEDS ORDERED: AMARYL2 MG PO (11:21)
[2019-01-11] MEDS ORDERED: TRAZODONE50 MG PO (11:21)
[2019-01-11] MEDS ORDERED: TRAMADOL HCL50 MG PO (11:21)
[2019-01-13] MEDS ORDERED: METOPROLOL SUCC25 M2 PO (14:52)
[2019-01-13] MEDS ORDERED: DOXYCYCLINE100 M3 PO (14:52)
[2019-01-13] MEDS ORDERED: DULCOLAX STOOL100 M1 PO (14:52)
== END 2018-08-13 14:25 | disposition home or self-care (01) | DRG 309 ==
LOC: ED 14:18 → 4E 15:44 → EDHOLD 15:44 → 4E 16:55
PROVIDERS: Emergency Medicine; Family Medicine; Internal Medicine Nephrology; Student in an Organized Health Care Education/Training Program; ADMIT Internal Medicine
PROC: 4B02XTZ Measurement of Cardiac Defibrillator, External Approach (ICD-10-PCS; principal; 2018-08-12)
DX: I47.2 Ventricular tachycardia (principal); N17.9 Acute kidney failure, unspecified; I50.32 Chronic diastolic (congestive) heart failure; Z68.41 Body mass index [BMI] 40.0-44.9, adult; N18.4 Chronic kidney disease, stage 4 (severe); Z45.02 Encounter for adjustment and management of automatic implantable cardiac defibrillator; E11.22 Type 2 diabetes mellitus with diabetic chronic kidney disease; I25.10 Atherosclerotic heart disease of native coronary artery without angina pectoris; E03.9 Hypothyroidism, unspecified; H54.61 Unqualified visual loss, right eye, normal vision left eye; K21.9 Gastro-esophageal reflux disease without esophagitis; M10.9 Gout, unspecified; F41.1 Generalized anxiety disorder; E78.00 Pure hypercholesterolemia, unspecified; E11.649 Type 2 diabetes mellitus with hypoglycemia without coma; E66.01 Morbid (severe) obesity due to excess calories; E55.9 Vitamin D deficiency, unspecified; E87.5 Hyperkalemia; I25.5 Ischemic cardiomyopathy; E66.9 Obesity, unspecified; E78.5 Hyperlipidemia, unspecified; I95.9 Hypotension, unspecified; I48.91 Unspecified atrial fibrillation; E11.319 Type 2 diabetes mellitus with unspecified diabetic retinopathy without macular edema; Z95.5 Presence of coronary angioplasty implant and graft; Z88.8 Allergy status to other drugs, medicaments and biological substances; Z91.041 Radiographic dye allergy status; Z98.42 Cataract extraction status, left eye; Z90.49 Acquired absence of other specified parts of digestive tract; Z83.3 Family history of diabetes mellitus; Z82.49 Family history of ischemic heart disease and other diseases of the circulatory system; Z80.9 Family history of malignant neoplasm, unspecified; Z79.82 Long term (current) use of aspirin; Z79.899 Other long term (current) drug therapy; Z95.810 Presence of automatic (implantable) cardiac defibrillator; Z79.02 Long term (current) use of antithrombotics/antiplatelets

== ENCOUNTER → 2019-05-10 | Outpatient (CLI) | payer MEDICARE ==
[~2019-05-10] MED LIST changes: +AMARYL2 MG PO; +AMIODARONE HYD200 MG PO; +DULCOLAX STOOL100 M1 PO; +KLOR-CON M2020 ME1 PO; +LEVOTHYROXINE75 MCG PO; +METOPROLOL SUCC25 M2 PO; +NITROFURANTOIN100 M9 PO; +TRAMADOL HCL50 MG PO
[2019-05-10 12:27] LABS: BASO % 0.4 % (0.0-1.0); EOS % 0.3 % (1.0-4.0); HEMATOCRIT 30.9 % (37.0-47.0); HEMOGLOBIN 9.5 g/dl (12.0-16.0); LYMPH # 0.9 10*3/uL (1.3-4.4); LYMPH % 12.1 % (27.0-41.0); MEAN CELL VOLUME 86.3 fl (81.0-99.0); MEAN CORPUSCULAR HGB 26.5 pg (27.0-31.0); MEAN CORPUSCULAR HGB CONC 30.7 g/dl (33.0-37.0); MEAN PLATELET VOLUME 10.3 fl (9.6-12.3); MONO # 0.8 10*3/uL (0.1-1.0); MONO % 10.7 % (3.0-9.0); NEUT # 5.7 10*3/uL (2.3-7.9); NEUT % 75.8 % (47.0-73.0); PLATELET COUNT AUTOMATED 217 10*3/uL (130-400); RED BLOOD COUNT 3.58 10*6/uL (4.10-5.10); RED CELL DISTRI WIDTH 15.9 % (0-14.5); WHITE BLOOD COUNT 7.5 10*3/uL (4.8-10.8)
[2019-05-10 13:02] LABS: CREATININE 2.82 mg/dL (0.55-1.02); POTASSIUM 4.3 mmol/L (3.5-5.1)
== END | disposition home or self-care (01) ==
LOC: LAB 11:51
PROVIDERS: Internal Medicine
DX: N30.01 Acute cystitis with hematuria (principal); R68.83 Chills (without fever)

== ENCOUNTER 2019-05-16 09:49 | Inpatient (IN) | payer MEDICARE ==
[~2019-05-16] VITALS: Ht 170.1 cm; Wt 113.4 kg
[2019-05-16] VITALS (7 sets, daily range): BP systolic 72–115; BP diastolic 36–72
[~2019-05-16 09:49] MED LIST changes: -NITROFURANTOIN100 M9 PO
--- NOTE | 2019-05-16 10:15 | NUR ---
PT RESTING IN BED. FAMILY AT BEDSIDE. SIDERAILS UP X2
[2019-05-16 11:05] LABS: HEMATOCRIT 33.8 % (37.0-47.0); HEMOGLOBIN 10.1 g/dl (12.0-16.0); MEAN CELL VOLUME 84.9 fl (81.0-99.0); MEAN CORPUSCULAR HGB 25.4 pg (27.0-31.0); MEAN CORPUSCULAR HGB CONC 29.9 g/dl (33.0-37.0); MEAN PLATELET VOLUME 10.1 fl (9.6-12.3); PLATELET COUNT AUTOMATED 260 10*3/uL (130-400); RED BLOOD COUNT 3.98 10*6/uL (4.10-5.10); RED CELL DISTRI WIDTH 15.7 % (0-14.5); WHITE BLOOD COUNT 11.7 10*3/uL (4.8-10.8)
--- NOTE | 2019-05-16 11:12 | NUR ---
PT TEARFUL AT BEDSIDE FROM LEG PAIN. MEDICATION GIVEN
[2019-05-16 11:19] LABS: BASOPHILS 1 % (0-1); OVALOCYTES MODERATE; PLATELET SUFFICIENCY NORMAL (NORMAL); TOTAL CELLS COUNTED 100 #CELLS
[2019-05-16 11:21] LABS: ALBUMIN 3.5 gm/dl (3.1-4.5); CREATININE 2.7 mg/dL (0.55-1.02); POTASSIUM 4.3 mmol/L (3.5-5.1); TOTAL PROTEIN 7.4 gm/dL (6.4-8.2)
--- NOTE | 2019-05-16 13:27 | NUR ---
PT RESTING IN BED. FAMILY AT BEDSIDE
--- NOTE | 2019-05-16 14:48 | NUR ---
A 69, admitted to , under the services of PILAR Beasley MD with a diagnosis of CELLULITITS. Chief complaint is REDNESS/SWELLING/PAIN TO LOWER LEGS. Patient arrived via bed from ER. Monitor applied. Initial assessment completed. Vital signs taken and recorded. PILAR BEASLEY MD notified of admission to the unit. Orders received. See assessment for past medical history, medications and allergies. Patient and/or family oriented to unit. [facility] visitation policy reviewed. Clothing/patient valuable form completed. VANGIE RIDER
[2019-05-16] MEDS ORDERED: NITROFURANTOIN100 M9 PO (15:04)
[2019-05-16] MEDS ORDERED: CELEXA40 MG PO (16:52)
[2019-05-16] MEDS ORDERED: LEVOTHYROXINE50 MCG PO (16:53)
--- NOTE | 2019-05-16 17:00 | NUR ---
DR. ARROYO CALLED AND CONSULTED. SHE STATES THAT SHE IS ON THE FLOOR AND WILL BE IN TO SEE THE PATIENT.
--- NOTE | 2019-05-16 17:03 | NUR ---
UPDATED MED REC [facility]ED [facility]. TO BRING IN BOX OF MEDS 05/17/19 TO BETTER UPDATE MED REC, WILL PASS ALONG
--- NOTE | 2019-05-16 17:42 | NUR ---
PT C/O PAIN IN LOWER LEGS RATING IT A 10/10. PO ULTRAM IS GIVEN AT THIS TIME. WILL CONTINUT TO MONITOR PATIENT. CALL LIGHT WITHIN REACH
--- NOTE | 2019-05-16 17:44 | NUR ---
DR CUETO CALLED AND GAVE NEW ORDERS FOR DIFFERENT ANTIBIOTICS.
--- NOTE | 2019-05-16 18:19 | NUR ---
PT STATES SHE IS IN PAIN A 10/10 SO DILAUDID IV IS GIVEN AT THIS TIME. CALL LIGHT WITHIN REACH. WILL CONTINUE TO MONITOR PATIENT.
--- NOTE | 2019-05-16 20:02 | NUR ---
1930 ADULT DIAPER CHANGED FOR LARGE AMOUNT URINE. TINY CARE DONE. PT CRYING. STATES EARLER PAIN MED DID HELP HER LEGS. HEP LOCK'S INTACT X'S 2. BILATERAL LOWER EXTREMITIES REMAIN RED AND EDEMATOUS IN APPEARANCE. REASSURANCE GIVEN.
--- NOTE | 2019-05-16 20:40 | NUR ---
PT BP IS LOW. CHECKED MANUALLY. 72/[address] ARROYO CALLED. ORDERS RECEIVED.
--- NOTE | 2019-05-16 21:28 | NUR ---
2105 NORCO PO FOR C/O'S BILATERAL LEG PAIN. WILL MONITOR.
--- NOTE | 2019-05-16 22:09 | NUR ---
EARLIER PAIN MED EFFECTIVE. RESTING IN BED WITH EYES CLOSED. APPEARS TO BE SLEEPING. 500CC NSS BOLUS INFUSING WELL.
[2019-05-17] VITALS: BP 92/50
--- NOTE | 2019-05-17 00:31 | NUR ---
TEARFUL AT TIMES. VERY EMOTIONAL. STATES " I GET LIKE THIS VERY EASILY." DENIES PAIN AT PRESENT.
--- NOTE | 2019-05-17 03:11 | NUR ---
0310 PT INCONTINENT OF URINE. TINY CARE DONE AND ADULT DIAPER CHANGED. REPOSITIONED. NORCO PO FOR C/O'S LEG PAIN. WILL MONITOR.
[2019-05-17 04:00] VITALS: BP 94/52
--- NOTE | 2019-05-17 04:18 | NUR ---
EARLIER PAIN MED EFFECTIVE. RESTING IN BED WITH EYES CLOSED. APPEARS TO BE SLEEPING.
--- NOTE | 2019-05-17 06:10 | NUR ---
REMAINS SLEEPING. NO DISTRESS NOTED.
[2019-05-17 07:21] LABS: BASO % 0.4 % (0.0-1.0); EOS % 0.4 % (1.0-4.0); HEMATOCRIT 29.2 % (37.0-47.0); HEMOGLOBIN 8.7 g/dl (12.0-16.0); LYMPH # 1.5 10*3/uL (1.3-4.4); LYMPH % 20.2 % (27.0-41.0); MEAN CELL VOLUME 85.1 fl (81.0-99.0); MEAN CORPUSCULAR HGB 25.4 pg (27.0-31.0); MEAN CORPUSCULAR HGB CONC 29.8 g/dl (33.0-37.0); MEAN PLATELET VOLUME 9.9 fl (9.6-12.3); MONO # 0.9 10*3/uL (0.1-1.0); MONO % 12.4 % (3.0-9.0); NEUT % 65.9 % (47.0-73.0); PLATELET COUNT AUTOMATED 206 10*3/uL (130-400); RED BLOOD COUNT 3.43 10*6/uL (4.10-5.10); RED CELL DISTRI WIDTH 15.9 % (0-14.5); WHITE BLOOD COUNT 7.5 10*3/uL (4.8-10.8)
[2019-05-17 07:39] LABS: CREATININE 2.59 mg/dL (0.55-1.02); POTASSIUM 4.2 mmol/L (3.5-5.1)
[2019-05-17 08:00] VITALS: BP 95/50
--- NOTE | 2019-05-17 09:25 | NUR ---
JOSSIE DIAZ [id number] Please refer to the physician's history and physical for past medical history, comorbid conditions, and allergies. Diagnosis: CELLULITIS Gigi Score: 18,AT RISK WOUND DESCRIPTIONS: Wound Number: 1 Location of the wound: right lower extremity red and very hot to touch. Patient complained upon pain at time of assessment. Nurse caring for patient medicated her at time of assessment. No drainage noted at time of assessment. Redness measures 50.0cm x 66.0cm x <0.1cm. Wound Number: 2 Location of the wound: left lower extremity Thickness: Partial Size: 10.0cm x 0.8cm x 0.1cm Tunneling: none Undermining: none Sinus Tract: none Presence of Exudate: Serosanguineous Amount: Light Color: Red Odor: None Periwound Skin Appearance: Erythema Wound edges: approximated with intact serum filled blister Pain (associated with wound): How does patient state this happened? pt unsure when this started but states right is worse than the left Surface the patient is resting on: Isoflex SKIN PREVENTION RECOMMENDATION: 1. Pressure redistribution support surface as appropriate 2. Elevate heels 3. Remove boots/TEDS every shift and reapply 4. Head of bed 30 degrees as tolerated 5. Assess nutrition and hydration 6. Manage moisture 7. Avoid the use of containment devices while in bed 8. Use absorptive products on surfaces limit layers of linens on bed 9. Turn and reposition every 1-2 hours in bed and every 1 hour in chair as tolerated 10. Weight shifts every 15 minutes while up in chair 11. Offloading with pillows or device to keep heels elevated off bed 12. Monitor skin at least every shift 13. Inspect under medical devices twice a day WOUND TREATMENT RECOMMENDATIONS: Heel rasier pro boots to bilateral feel while in bed. Cleanse left lower extremity with nss and apply sureprep around the wound therahoney to wound bed and cover with dsd every 2 days and prn.
--- NOTE | 2019-05-17 10:30 | NUR ---
Biscuit Maker in to talk to patient. Patient states lives at home with her . There are 0 steps in the home. Physician: Dr. Constantino Foreman Pharmacy: [facility] Health in the past but not presently Patient's level of ADLs: MODERATE ASSIST Patient has working utilities: yes DME: walker, shower chair Follow-up physician's appointment after d/c: she prefers to make her own follow up appt after discharge Does patient want to access PORTAL?: no Discharge plan discussed with patient. She lives at home with her . She needs minimal assistance in her ADLs and ambulates with a walker. She is requesting a bariatric wheelchair for home. Dr. Foreman notified. Discussed home health care services and she denies any home needs at this time. When medically stable she will be discharged to home. Her will provide transportation on discharge. RITA PRICE
[2019-05-17] MEDS ORDERED: TRAZODONE50 MG PO (10:33)
--- NOTE | 2019-05-17 10:35 | NUR ---
PT BROUGHT IN MEDS, UPDATED MED REC WITH MEDS PROVIDED.
[2019-05-17 11:55] VITALS: BP 107/56
--- NOTE | 2019-05-17 13:50 | NUR ---
PHYSICAL THERAPY Physical therapy screen completed. Pt reports she has no therapy needs. Reports that prior to, she was independent using a walker. Due to the swelling in her legs, she hasn't been able to walk. Pt reporting no therapy concerns. no PT needs at this time. Thank you Christine Fine, PT, DPT
--- NOTE | 2019-05-17 15:01 | NUR ---
Faxed bariatric wheelchair prescription to [facility]
[2019-05-17 16:00] VITALS: BP 90/50
[2019-05-17 20:00] VITALS: BP 127/71
[2019-05-18] VITALS: BP 112/60
--- NOTE | 2019-05-18 03:10 | NUR ---
24 HR CHART CHECK COMPLETE
[2019-05-18 06:47] LABS: BASO % 0.6 % (0.0-1.0); EOS % 0.6 % (1.0-4.0); HEMATOCRIT 30.6 % (37.0-47.0); HEMOGLOBIN 9.1 g/dl (12.0-16.0); LYMPH # 1.5 10*3/uL (1.3-4.4); LYMPH % 20.4 % (27.0-41.0); MEAN CELL VOLUME 85.7 fl (81.0-99.0); MEAN CORPUSCULAR HGB 25.5 pg (27.0-31.0); MEAN CORPUSCULAR HGB CONC 29.7 g/dl (33.0-37.0); MONO # 0.9 10*3/uL (0.1-1.0); MONO % 11.9 % (3.0-9.0); NEUT # 4.7 10*3/uL (2.3-7.9); NEUT % 65.5 % (47.0-73.0); PLATELET COUNT AUTOMATED 229 10*3/uL (130-400); RED BLOOD COUNT 3.57 10*6/uL (4.10-5.10); RED CELL DISTRI WIDTH 15.9 % (0-14.5); WHITE BLOOD COUNT 7.2 10*3/uL (4.8-10.8)
[2019-05-18 07:27] LABS: POTASSIUM 4.6 mmol/L (3.5-5.1)
[2019-05-18 07:45] LABS: CREATININE 3.19 mg/dL (0.55-1.02)
[2019-05-18 08:00] VITALS: BP 104/50
--- NOTE | 2019-05-18 10:30 | NUR ---
Ambulatory Nurse in to see patient. She is sitting on the edge of her bed without distress noted. Discussed her bariatric wheelchair prescription being sent to [facility] and she verbalized an understanding. She denies any home needs. When medically stable she will be discharged to home. Per multidisciplinary discharge planning meeting the plan is to discharge patient to home tomorrow.
[2019-05-18 12:00] VITALS: BP 108/52
[2019-05-18 16:00] VITALS: BP 115/51
[2019-05-18 20:00] VITALS: BP 98/56
[2019-05-19] VITALS: BP 88/42
[2019-05-19 06:59] LABS: BASO % 0.6 % (0.0-1.0); EOS % 0.4 % (1.0-4.0); HEMATOCRIT 29.7 % (37.0-47.0); HEMOGLOBIN 8.9 g/dl (12.0-16.0); LYMPH # 1.3 10*3/uL (1.3-4.4); LYMPH % 18.5 % (27.0-41.0); MEAN CELL VOLUME 85.3 fl (81.0-99.0); MEAN CORPUSCULAR HGB 25.6 pg (27.0-31.0); MEAN PLATELET VOLUME 10.4 fl (9.6-12.3); MONO # 0.8 10*3/uL (0.1-1.0); MONO % 11.7 % (3.0-9.0); NEUT # 4.8 10*3/uL (2.3-7.9); NEUT % 68.1 % (47.0-73.0); PLATELET COUNT AUTOMATED 234 10*3/uL (130-400); RED BLOOD COUNT 3.48 10*6/uL (4.10-5.10)
[2019-05-19 07:26] LABS: CREATININE 3.44 mg/dL (0.55-1.02); PHOSPHOROUS 4.3 mg/dL (2.5-4.9); POTASSIUM 4.5 mmol/L (3.5-5.1)
[2019-05-19 07:51] LABS: PTH INTACT 106.2 pg/mL (18.5-88.0)
[2019-05-19 08:00] VITALS: BP 116/56
--- NOTE | 2019-05-19 11:03 | NUR ---
Builder Operator in to see patient. She is sitting on the edge of her bed visiting with family at the bedside. Discussed short term SNF and she refuses. Discussed received call from Mary at [facility] and her bariatric wheelchair has been approved. RICA will notify Mary at [facility] of patient's discharge.
[2019-05-19 12:00] VITALS: BP 102/71
[2019-05-19 14:15] LABS: BILIRUBIN NEGATIVE (NEGATIVE); BLOOD 3+ (NEGATIVE); CLARITY SL CLOUDY (CLEAR); COLOR YELLOW (YELLOW); GLUCOSE NEGATIVE (NEGATIVE); KETONE NEGATIVE (NEGATIVE); LEUKO ESTERASE 2+ (NEGATIVE); NITRITE NEGATIVE (NEGATIVE); PH 5.5 (5.0-9.0); SPECIFIC GRAVITY 1.015 (1.005-1.030); UROBILINOGEN 0.2 E.U./dl (0.2-1.0)
[2019-05-19 14:21] LABS: URINE CREATININE RANDOM 58.3 mg/dL
[2019-05-19 14:26] LABS: BACTERIA 2+; EPITHELIAL CELLS 20-25; WBC 31-40 wbc/hpf (0-5)
[2019-05-19 16:00] VITALS: BP 98/44
[2019-05-19 20:00] VITALS: BP 114/56
--- NOTE | 2019-05-19 20:14 | NUR ---
MEDICATED WITH PRN NORCO FOR C/O PAIN. WILL MONITOR
--- NOTE | 2019-05-19 21:49 | NUR ---
MEDICATION EFFECTIVE PER PATIENT
[2019-05-20] VITALS: BP 105/41; BP 135/86
[2019-05-20 06:42] LABS: BASO # 0.1 10*3/uL (0.0-0.1); BASO % 0.7 % (0.0-1.0); EOS # 0.1 10*3/uL (0.0-0.4); EOS % 0.9 % (1.0-4.0); HEMATOCRIT 30.5 % (37.0-47.0); HEMOGLOBIN 9.2 g/dl (12.0-16.0); LYMPH # 1.2 10*3/uL (1.3-4.4); LYMPH % 17.2 % (27.0-41.0); MEAN CELL VOLUME 84.7 fl (81.0-99.0); MEAN CORPUSCULAR HGB 25.6 pg (27.0-31.0); MEAN CORPUSCULAR HGB CONC 30.2 g/dl (33.0-37.0); MEAN PLATELET VOLUME 10.4 fl (9.6-12.3); MONO # 0.8 10*3/uL (0.1-1.0); MONO % 11.4 % (3.0-9.0); NEUT # 4.8 10*3/uL (2.3-7.9); NEUT % 68.8 % (47.0-73.0); PLATELET COUNT AUTOMATED 251 10*3/uL (130-400); RED CELL DISTRI WIDTH 15.9 % (0-14.5); WHITE BLOOD COUNT 6.9 10*3/uL (4.8-10.8)
[2019-05-20 06:47] LABS: CREATININE 3.37 mg/dL (0.55-1.02); POTASSIUM 4.6 mmol/L (3.5-5.1)
[2019-05-20 08:00] VITALS: BP 112/46
--- NOTE | 2019-05-20 10:00 | NUR ---
Health Services Information Specialist in to see patient. She is sitting on the BSC. No new needs or request at this time. When medically stable she will be discharged to home. Per multidisciplinary discharge planning meeting patient is for discharge today.
--- NOTE | 2019-05-20 10:19 | NUR ---
Spoke to Mary Pichardo at [facility] regarding patient discharging today. Bariatric wheelchair to be delivered today to home or hospital if still here.
[2019-05-20 12:00] VITALS: BP 117/51
--- NOTE | 2019-05-20 12:48 | NUR ---
Received call from Juan at [facility]. He is on his way to the hospital to deliver her bariatric wheelchair.
--- NOTE | 2019-05-20 15:45 | NUR ---
Discharge instructions reviewed with patient/family. Patient receptive and verbalizes understanding. Follow-up care arranged. Written instructions given to patient/family. Patient was ambulated from unit by EMT's and transferred to [place] for vascular intervention. Patient notified her of transfer. JAMESON SALAZAR
--- NOTE | 2019-05-20 15:48 | NUR ---
Nurse to nurse report given to MEGHNA Garcia at [facility].
== END 2019-05-20 15:45 | disposition short-term general hospital (02) | DRG 871 ==
LOC: ED 09:49 → 4E 13:29 → EDHOLD 13:29 → 4E 13:49
PROVIDERS: Internal Medicine Nephrology; Physician Assistant; Student in an Organized Health Care Education/Training Program; ADMIT Internal Medicine
DX: A41.9 Sepsis, unspecified organism (principal); J18.9 Pneumonia, unspecified organism; L03.116 Cellulitis of left lower limb; L03.115 Cellulitis of right lower limb; E87.2 Acidosis; N18.4 Chronic kidney disease, stage 4 (severe); I44.2 Atrioventricular block, complete; I50.32 Chronic diastolic (congestive) heart failure; I13.0 Hypertensive heart and chronic kidney disease with heart failure and stage 1 through stage 4 chronic kidney disease, or unspecified chronic kidney disease; M10.9 Gout, unspecified; I44.1 Atrioventricular block, second degree; E11.22 Type 2 diabetes mellitus with diabetic chronic kidney disease; E11.628 Type 2 diabetes mellitus with other skin complications; I48.0 Paroxysmal atrial fibrillation; I25.10 Atherosclerotic heart disease of native coronary artery without angina pectoris; K21.9 Gastro-esophageal reflux disease without esophagitis; F41.1 Generalized anxiety disorder; H54.40 Blindness, one eye, unspecified eye; E55.9 Vitamin D deficiency, unspecified; E78.00 Pure hypercholesterolemia, unspecified; E87.5 Hyperkalemia; I73.9 Peripheral vascular disease, unspecified; Z95.0 Presence of cardiac pacemaker; Z90.49 Acquired absence of other specified parts of digestive tract; Z95.5 Presence of coronary angioplasty implant and graft; Z98.42 Cataract extraction status, left eye; Z83.3 Family history of diabetes mellitus; Z82.49 Family history of ischemic heart disease and other diseases of the circulatory system; Z79.4 Long term (current) use of insulin; Z80.8 Family history of malignant neoplasm of other organs or systems; Z87.81 Personal history of (healed) traumatic fracture; I25.2 Old myocardial infarction; E03.9 Hypothyroidism, unspecified; Z79.82 Long term (current) use of aspirin; Z79.899 Other long term (current) drug therapy

== ENCOUNTER 2019-07-10 17:24 | Inpatient (IN) | payer MEDICARE ==
[~2019-07-10] VITALS: Ht 170.1 cm; Wt 109.9 kg
[~2019-07-10 17:24] MED LIST changes: +NITROFURANTOIN100 M9 PO
[2019-07-10 17:54] LABS: BASO # 0.1 10*3/uL (0.0-0.1); BASO % 0.9 % (0.0-1.0); EOS % 0.5 % (1.0-4.0); HEMATOCRIT 32.8 % (37.0-47.0); HEMOGLOBIN 10.1 g/dl (12.0-16.0); LYMPH # 1.3 10*3/uL (1.3-4.4); LYMPH % 23.3 % (27.0-41.0); MEAN CELL VOLUME 78.5 fl (81.0-99.0); MEAN CORPUSCULAR HGB 24.2 pg (27.0-31.0); MEAN CORPUSCULAR HGB CONC 30.8 g/dl (33.0-37.0); MEAN PLATELET VOLUME 10.7 fl (9.6-12.3); MONO # 0.6 10*3/uL (0.1-1.0); MONO % 10.6 % (3.0-9.0); NEUT # 3.5 10*3/uL (2.3-7.9); NEUT % 64.3 % (47.0-73.0); PLATELET COUNT AUTOMATED 258 10*3/uL (130-400); RED BLOOD COUNT 4.18 10*6/uL (4.10-5.10); RED CELL DISTRI WIDTH 17.1 % (0-14.5); WHITE BLOOD COUNT 5.5 10*3/uL (4.8-10.8)
[2019-07-10 18:04] VITALS: BP 110/49
[2019-07-10 18:04] LABS: ACT PARTIAL THROMBO TIME 26.3 SECONDS (20.0-32.1); INTERNATIONAL NORM RATIO 0.9 (2.0-3.5)
[2019-07-10 18:11] LABS: ALBUMIN 3.7 gm/dl (3.1-4.5); ALKALINE PHOSPHATASE 133 U/L (45-117); BUN 65 mg/dl (7-24); CHLORIDE 96 mmol/L (98-107); CREATININE 2.85 mg/dL (0.55-1.02); POTASSIUM 3.9 mmol/L (3.5-5.1); SGOT/AST 16 IU/L (3-35); SGPT/ALT 14 U/L (12-78); SODIUM 131 mmol/L (136-145); TOTAL PROTEIN 8.1 gm/dL (6.4-8.2)
[2019-07-10 18:21] LABS: TROPONIN I < 0.015 ng/ml (<0.045)
[2019-07-10 18:29] VITALS: BP 106/49
[2019-07-10 20:30] VITALS: BP 105/79
[2019-07-10] MEDS ORDERED: FAMOTIDINE40 MG PO (21:13)
[2019-07-11] VITALS: BP 116/58
[2019-07-11 08:00] VITALS: BP 90/58
[2019-07-11 12:00] VITALS: BP 96/80
[2019-07-11 16:00] VITALS: BP 110/47
[2019-07-11 20:00] VITALS: BP 95/51
[2019-07-11 23:33] VITALS: BP 90/68
[2019-07-12 06:53] LABS: BASO % 0.8 % (0.0-1.0); EOS % 0.8 % (1.0-4.0); HEMATOCRIT 29.8 % (37.0-47.0); HEMOGLOBIN 9.3 g/dl (12.0-16.0); LYMPH # 1.4 10*3/uL (1.3-4.4); LYMPH % 26.4 % (27.0-41.0); MEAN CELL VOLUME 77.8 fl (81.0-99.0); MEAN CORPUSCULAR HGB 24.3 pg (27.0-31.0); MEAN CORPUSCULAR HGB CONC 31.2 g/dl (33.0-37.0); MEAN PLATELET VOLUME 9.9 fl (9.6-12.3); MONO # 0.8 10*3/uL (0.1-1.0); MONO % 14.5 % (3.0-9.0); NEUT % 56.9 % (47.0-73.0); PLATELET COUNT AUTOMATED 225 10*3/uL (130-400); RED BLOOD COUNT 3.83 10*6/uL (4.10-5.10); RED CELL DISTRI WIDTH 17.1 % (0-14.5); WHITE BLOOD COUNT 5.3 10*3/uL (4.8-10.8)
[2019-07-12 07:01] LABS: CREATININE 2.98 mg/dL (0.55-1.02); POTASSIUM 3.9 mmol/L (3.5-5.1); TOTAL PROTEIN 6.4 gm/dL (6.4-8.2)
[2019-07-12 08:00] VITALS: BP 92/54
[2019-07-12 12:00] VITALS: BP 109/66
[2019-07-12 15:49] LABS: PHOSPHOROUS 4.3 mg/dL (2.5-4.9)
[2019-07-12 15:59] LABS: FERRITIN 29.5 ng/mL (10.0-291.0); VITAMIN D, 25-HYDROXY 45.2 ng/mL (30-100)
[2019-07-12 16:00] VITALS: BP 142/44
[2019-07-12 20:00] VITALS: BP 151/60
[2019-07-13] VITALS: BP 132/61
[2019-07-13 06:56] LABS: BASO % 0.4 % (0.0-1.0); HEMATOCRIT 28.4 % (37.0-47.0); HEMOGLOBIN 8.7 g/dl (12.0-16.0); LYMPH # 0.9 10*3/uL (1.3-4.4); LYMPH % 17.9 % (27.0-41.0); MEAN CELL VOLUME 78.5 fl (81.0-99.0); MEAN CORPUSCULAR HGB CONC 30.6 g/dl (33.0-37.0); MEAN PLATELET VOLUME 9.9 fl (9.6-12.3); MONO # 0.5 10*3/uL (0.1-1.0); MONO % 10.6 % (3.0-9.0); NEUT # 3.5 10*3/uL (2.3-7.9); NEUT % 70.5 % (47.0-73.0); PLATELET COUNT AUTOMATED 212 10*3/uL (130-400); RED BLOOD COUNT 3.62 10*6/uL (4.10-5.10); WHITE BLOOD COUNT 4.9 10*3/uL (4.8-10.8)
[2019-07-13 07:23] LABS: POTASSIUM 4.5 mmol/L (3.5-5.1)
[2019-07-13 08:00] VITALS: BP 128/64
[2019-07-13 12:00] VITALS: BP 129/44; BP 98/48
[2019-07-13 16:00] VITALS: BP 103/50
[2019-07-13 20:00] VITALS: BP 114/52
[2019-07-14] VITALS: BP 97/50
[2019-07-14 06:14] LABS: BASO % 0.6 % (0.0-1.0); EOS # 0.1 10*3/uL (0.0-0.4); EOS % 0.8 % (1.0-4.0); HEMATOCRIT 31.9 % (37.0-47.0); HEMOGLOBIN 9.7 g/dl (12.0-16.0); LYMPH % 29.6 % (27.0-41.0); MEAN CELL VOLUME 80.4 fl (81.0-99.0); MEAN CORPUSCULAR HGB 24.4 pg (27.0-31.0); MEAN CORPUSCULAR HGB CONC 30.4 g/dl (33.0-37.0); MONO # 0.8 10*3/uL (0.1-1.0); MONO % 12.3 % (3.0-9.0); NEUT # 3.7 10*3/uL (2.3-7.9); NEUT % 56.2 % (47.0-73.0); PLATELET COUNT AUTOMATED 249 10*3/uL (130-400); RED BLOOD COUNT 3.97 10*6/uL (4.10-5.10); RED CELL DISTRI WIDTH 17.2 % (0-14.5); WHITE BLOOD COUNT 6.7 10*3/uL (4.8-10.8)
[2019-07-14 06:26] LABS: ALBUMIN 3.3 gm/dl (3.1-4.5); CREATININE 3.04 mg/dL (0.55-1.02); PHOSPHOROUS 4.4 mg/dL (2.5-4.9)
[2019-07-14 08:00] VITALS: BP 102/52
[2019-07-14 12:00] VITALS: BP 113/56
[2019-07-14 16:00] VITALS: BP 97/50
[2019-07-14 20:00] VITALS: BP 97/47
[2019-07-15] VITALS: BP 112/56
[2019-07-15 08:00] VITALS: BP 100/46
[2019-07-15 12:00] VITALS: BP 108/42
[2019-07-15 16:00] VITALS: BP 100/40; BP 94/34
[2019-07-15 20:00] VITALS: BP 115/47
[2019-07-16] VITALS: BP 110/50
[2019-07-16 06:13] LABS: BASO % 0.9 % (0.0-1.0); EOS % 0.9 % (1.0-4.0); HEMOGLOBIN 8.9 g/dl (12.0-16.0); LYMPH # 1.3 10*3/uL (1.3-4.4); LYMPH % 28.1 % (27.0-41.0); MEAN CELL VOLUME 79.2 fl (81.0-99.0); MEAN CORPUSCULAR HGB 24.3 pg (27.0-31.0); MEAN CORPUSCULAR HGB CONC 30.7 g/dl (33.0-37.0); MEAN PLATELET VOLUME 9.9 fl (9.6-12.3); MONO # 0.7 10*3/uL (0.1-1.0); MONO % 15.7 % (3.0-9.0); NEUT # 2.5 10*3/uL (2.3-7.9); NEUT % 53.5 % (47.0-73.0); PLATELET COUNT AUTOMATED 210 10*3/uL (130-400); RED BLOOD COUNT 3.66 10*6/uL (4.10-5.10); RED CELL DISTRI WIDTH 17.2 % (0-14.5); WHITE BLOOD COUNT 4.7 10*3/uL (4.8-10.8)
[2019-07-16 06:28] LABS: ALBUMIN 3.1 gm/dl (3.1-4.5); CREATININE 3.05 mg/dL (0.55-1.02); PHOSPHOROUS 3.1 mg/dL (2.5-4.9); POTASSIUM 4.5 mmol/L (3.5-5.1)
[2019-07-16 08:00] VITALS: BP 120/46
[2019-07-16 12:00] VITALS: BP 127/62
[2019-07-16] MEDS ORDERED: SENNA8.6 MG PO (13:51)
[2019-07-16] MEDS ORDERED: CYMBALTA60 MG PO (13:56)
[2019-07-16] MEDS ORDERED: DOXYCYCLINE100 M3 PO (13:56)
[2019-07-16] MEDS ORDERED: CYMBALTA30 MG PO (13:56)
== END 2019-07-16 14:40 | disposition home or self-care (01) | DRG 556 ==
LOC: ED 17:24 → 4E 19:01 → EDHOLD 19:01 → 4E 20:02 → 5E 07-14 17:41
PROVIDERS: Emergency Medicine; Internal Medicine; Internal Medicine Nephrology; ADMIT Internal Medicine
DX: M25.512 Pain in left shoulder (principal); I44.2 Atrioventricular block, complete; N18.4 Chronic kidney disease, stage 4 (severe); I13.0 Hypertensive heart and chronic kidney disease with heart failure and stage 1 through stage 4 chronic kidney disease, or unspecified chronic kidney disease; I42.8 Other cardiomyopathies; I48.20 Chronic atrial fibrillation, unspecified; R01.1 Cardiac murmur, unspecified; D50.9 Iron deficiency anemia, unspecified; M19.012 Primary osteoarthritis, left shoulder; E11.51 Type 2 diabetes mellitus with diabetic peripheral angiopathy without gangrene; F32.9 Major depressive disorder, single episode, unspecified; E66.01 Morbid (severe) obesity due to excess calories; I35.0 Nonrheumatic aortic (valve) stenosis; R07.9 Chest pain, unspecified; K59.00 Constipation, unspecified; I25.10 Atherosclerotic heart disease of native coronary artery without angina pectoris; I50.9 Heart failure, unspecified; E55.9 Vitamin D deficiency, unspecified; K21.9 Gastro-esophageal reflux disease without esophagitis; F41.1 Generalized anxiety disorder; M10.9 Gout, unspecified; E78.00 Pure hypercholesterolemia, unspecified; E03.9 Hypothyroidism, unspecified; E11.22 Type 2 diabetes mellitus with diabetic chronic kidney disease; Z90.49 Acquired absence of other specified parts of digestive tract; I25.2 Old myocardial infarction; Z88.8 Allergy status to other drugs, medicaments and biological substances; Z91.041 Radiographic dye allergy status; Z95.5 Presence of coronary angioplasty implant and graft; Z98.42 Cataract extraction status, left eye; Z95.0 Presence of cardiac pacemaker; Z83.3 Family history of diabetes mellitus; Z82.49 Family history of ischemic heart disease and other diseases of the circulatory system; Z80.8 Family history of malignant neoplasm of other organs or systems; Z79.899 Other long term (current) drug therapy; Z79.82 Long term (current) use of aspirin; Z79.02 Long term (current) use of antithrombotics/antiplatelets; Z79.4 Long term (current) use of insulin; Z68.37 Body mass index [BMI] 37.0-37.9, adult

== ENCOUNTER 2020-01-04 12:33 | Inpatient (IN) | payer MEDICARE ==
[~2020-01-04] VITALS: Ht 167.6 cm; Wt 119.0 kg
[~2020-01-04 12:33] MED LIST changes: +CYMBALTA30 MG PO; +CYMBALTA60 MG PO; +FAMOTIDINE40 MG PO; +SENNA8.6 MG PO
[2020-01-04 12:41] VITALS: BP 124/49
[2020-01-04] MEDS ORDERED: CITALOPRAM40 MG PO (12:59)
[2020-01-04] MEDS ORDERED: TRAZODONE50 MG PO (12:59)
[2020-01-04] MEDS ORDERED: OXYBUTYNIN ER15 MG PO (13:00)
[2020-01-04] MEDS ORDERED: ISOSORBIDE30 MG PO (13:01)
[2020-01-04] MEDS ORDERED: CYMBALTA60 MG PO (13:01)
[2020-01-04] MEDS ORDERED: LEVOTHYROXINE50 MCG PO (13:02)
[2020-01-04] MEDS ORDERED: LIPITOR40 MG PO (13:02)
[2020-01-04] MEDS ORDERED: AMIODARONE HYD200 MG PO (13:03)
[2020-01-04] MEDS ORDERED: Amaryl2 MG PO (13:03)
[2020-01-04] MEDS ORDERED: GOOD NEIGHBOR P20 MG PO (13:04)
[2020-01-04] MEDS ORDERED: PEPCID40 MG PO (13:05)
[2020-01-04] MEDS ORDERED: ALLOPURINOL100 MG PO (13:05)
[2020-01-04] MEDS ORDERED: ASPIR 8181 MG PO (13:06)
[2020-01-04] MEDS ORDERED: PROGESTERONE200 M2 PO (13:06)
[2020-01-04 13:18] LABS: BASO % 0.8 % (0.0-1.0); EOS # 0.1 10*3/uL (0.0-0.4); EOS % 1.2 % (1.0-4.0); HEMATOCRIT 34.3 % (37.0-47.0); LYMPH # 0.9 10*3/uL (1.3-4.4); LYMPH % 18.7 % (27.0-41.0); MEAN CELL VOLUME 91.5 fl (81.0-99.0); MEAN CORPUSCULAR HGB 29.3 pg (27.0-31.0); MEAN CORPUSCULAR HGB CONC 32.1 g/dl (33.0-37.0); MEAN PLATELET VOLUME 10.1 fl (9.6-12.3); MONO # 0.8 10*3/uL (0.1-1.0); MONO % 15.3 % (3.0-9.0); NEUT # 3.2 10*3/uL (2.3-7.9); NEUT % 63.6 % (47.0-73.0); PLATELET COUNT AUTOMATED 168 10*3/uL (130-400); RED BLOOD COUNT 3.75 10*6/uL (4.10-5.10); RED CELL DISTRI WIDTH 15.1 % (0-14.5)
[2020-01-04 13:44] LABS: ALBUMIN 3.3 gm/dl (3.1-4.5); CREATININE 2.57 mg/dL (0.55-1.02); POTASSIUM 4.8 mmol/L (3.5-5.1); TOTAL PROTEIN 7.2 gm/dL (6.4-8.2)
[2020-01-04 14:37] LABS: BILIRUBIN NEGATIVE (NEGATIVE); CLARITY SL CLOUDY (CLEAR); COLOR YELLOW (YELLOW); GLUCOSE NEGATIVE (NEGATIVE); KETONE NEGATIVE (NEGATIVE); SPECIFIC GRAVITY 1.025 (1.005-1.030)
[2020-01-04 14:38] LABS: BACTERIA 1+; BLOOD 1+ (NEGATIVE); EPITHELIAL CELLS TNTC; LEUKO ESTERASE 2+ (NEGATIVE); NITRITE NEGATIVE (NEGATIVE); RBC 0-2 rbc/hpf (0-2); UROBILINOGEN 0.2 E.U./dl (0.2-1.0); WBC 0-2 wbc/hpf (0-5)
[2020-01-04 14:59] VITALS: BP 118/47
[2020-01-04 16:56] VITALS: BP 110/53
[2020-01-05] VITALS: BP 96/79
[2020-01-05 05:59] LABS: ALBUMIN 3.1 gm/dl (3.1-4.5); CREATININE 2.66 mg/dL (0.55-1.02); FREE T4 0.94 ng/dl (0.76-1.46); POTASSIUM 4.9 mmol/L (3.5-5.1); TOTAL PROTEIN 6.5 gm/dL (6.4-8.2)
[2020-01-05 06:04] LABS: THYROID STIM HORMONE (HS) 11.4 uIU/ml (0.358-4.75)
[2020-01-05 06:09] LABS: BASO # 0.1 10*3/uL (0.0-0.1); BASO % 1.1 % (0.0-1.0); EOS # 0.1 10*3/uL (0.0-0.4); EOS % 1.8 % (1.0-4.0); HEMATOCRIT 33.6 % (37.0-47.0); LYMPH # 1.8 10*3/uL (1.3-4.4); MEAN CELL VOLUME 91.8 fl (81.0-99.0); MEAN CORPUSCULAR HGB 29.2 pg (27.0-31.0); MEAN CORPUSCULAR HGB CONC 31.8 g/dl (33.0-37.0); MEAN PLATELET VOLUME 10.7 fl (9.6-12.3); MONO # 1.1 10*3/uL (0.1-1.0); MONO % 17.5 % (3.0-9.0); NEUT # 3.1 10*3/uL (2.3-7.9); NEUT % 50.1 % (47.0-73.0); PLATELET COUNT AUTOMATED 178 10*3/uL (130-400); RED BLOOD COUNT 3.66 10*6/uL (4.10-5.10); RED CELL DISTRI WIDTH 15.2 % (0-14.5); WHITE BLOOD COUNT 6.1 10*3/uL (4.8-10.8)
[2020-01-05 06:52] LABS: VITAMIN D, 25-HYDROXY 38.3 ng/mL (30-100)
[2020-01-05 08:00] VITALS: BP 120/58
[2020-01-05 10:41] LABS: IRON 48 ug/dL (50-170); TOTAL IRON BINDING CAPACITY 367 ug/dl (250-450)
[2020-01-05 12:00] VITALS: BP 134/55
[2020-01-05 16:40] VITALS: BP 128/50
[2020-01-05 20:00] VITALS: BP 91/53
[2020-01-06] VITALS: BP 104/51
[2020-01-06 06:15] LABS: BASO # 0.1 10*3/uL (0.0-0.1); BASO % 0.8 % (0.0-1.0); EOS # 0.1 10*3/uL (0.0-0.4); EOS % 1.7 % (1.0-4.0); HEMATOCRIT 34.7 % (37.0-47.0); LYMPH # 1.4 10*3/uL (1.3-4.4); LYMPH % 21.8 % (27.0-41.0); MEAN CELL VOLUME 90.8 fl (81.0-99.0); MEAN CORPUSCULAR HGB 29.1 pg (27.0-31.0); MEAN PLATELET VOLUME 10.7 fl (9.6-12.3); MONO # 1.1 10*3/uL (0.1-1.0); MONO % 17.1 % (3.0-9.0); NEUT # 3.8 10*3/uL (2.3-7.9); NEUT % 58.1 % (47.0-73.0); PLATELET COUNT AUTOMATED 180 10*3/uL (130-400); RED BLOOD COUNT 3.82 10*6/uL (4.10-5.10); RED CELL DISTRI WIDTH 15.6 % (0-14.5); WHITE BLOOD COUNT 6.5 10*3/uL (4.8-10.8)
[2020-01-06 06:28] LABS: CREATININE 2.94 mg/dL (0.55-1.02); POTASSIUM 5.4 mmol/L (3.5-5.1)
[2020-01-06 08:00] VITALS: BP 106/53
[2020-01-06 10:00] VITALS: BP 110/50
[2020-01-06 12:00] VITALS: BP 136/59
[2020-01-06 16:00] VITALS: BP 98/68
[2020-01-06 20:00] VITALS: BP 113/49
[2020-01-07] VITALS: BP 98/63
[2020-01-07] MEDS ORDERED: TRAMADOL HCL50 MG PO (02:15)
[2020-01-07 06:29] LABS: BASO % 0.5 % (0.0-1.0); EOS # 0.2 10*3/uL (0.0-0.4); EOS % 2.4 % (1.0-4.0); HEMATOCRIT 34.2 % (37.0-47.0); LYMPH # 1.5 10*3/uL (1.3-4.4); LYMPH % 22.8 % (27.0-41.0); MEAN CELL VOLUME 90.7 fl (81.0-99.0); MEAN CORPUSCULAR HGB 28.6 pg (27.0-31.0); MEAN CORPUSCULAR HGB CONC 31.6 g/dl (33.0-37.0); MEAN PLATELET VOLUME 10.4 fl (9.6-12.3); MONO # 1.1 10*3/uL (0.1-1.0); MONO % 16.8 % (3.0-9.0); NEUT # 3.8 10*3/uL (2.3-7.9); NEUT % 56.9 % (47.0-73.0); PLATELET COUNT AUTOMATED 181 10*3/uL (130-400); RED BLOOD COUNT 3.77 10*6/uL (4.10-5.10); RED CELL DISTRI WIDTH 15.7 % (0-14.5); WHITE BLOOD COUNT 6.6 10*3/uL (4.8-10.8)
[2020-01-07 06:44] LABS: CREATININE 2.98 mg/dL (0.55-1.02); POTASSIUM 4.7 mmol/L (3.5-5.1)
[2020-01-07 08:50] VITALS: BP 96/50
[2020-01-07 12:00] VITALS: BP 120/89
[2020-01-07 16:00] VITALS: BP 98/50
[2020-01-07 19:56] LABS: ABG BASE EXCESS -3.3 mmol/L (-2.0-2.0); ARTERIAL BLOOD GAS PH 7.387 (7.35-7.45)
[2020-01-07 20:00] VITALS: BP 114/64
[2020-01-08] VITALS: BP 114/57
[2020-01-08 06:18] LABS: BASO # 0.1 10*3/uL (0.0-0.1); BASO % 0.8 % (0.0-1.0); EOS # 0.1 10*3/uL (0.0-0.4); EOS % 0.8 % (1.0-4.0); HEMATOCRIT 33.4 % (37.0-47.0); LYMPH # 1.2 10*3/uL (1.3-4.4); LYMPH % 18.4 % (27.0-41.0); MEAN CELL VOLUME 91.5 fl (81.0-99.0); MEAN CORPUSCULAR HGB 30.7 pg (27.0-31.0); MEAN CORPUSCULAR HGB CONC 33.5 g/dl (33.0-37.0); MEAN PLATELET VOLUME 11.1 fl (9.6-12.3); NEUT # 4.1 10*3/uL (2.3-7.9); NEUT % 63.4 % (47.0-73.0); PLATELET COUNT AUTOMATED 195 10*3/uL (130-400); RED BLOOD COUNT 3.65 10*6/uL (4.10-5.10); WHITE BLOOD COUNT 6.4 10*3/uL (4.8-10.8)
[2020-01-08 06:32] LABS: CREATININE 3.04 mg/dL (0.55-1.02); POTASSIUM 4.3 mmol/L (3.5-5.1)
[2020-01-08 08:00] VITALS: BP 126/57
[2020-01-08 11:24] LABS: ABG BASE EXCESS -2.5 mmol/L (-2.0-2.0); ARTERIAL BLOOD GAS PH 7.399 (7.35-7.45)
[2020-01-08 12:00] VITALS: BP 126/56; BP 126/88
[2020-01-08 16:00] VITALS: BP 107/54
[2020-01-08 20:00] VITALS: BP 124/54
[2020-01-09] VITALS: BP 122/71
[2020-01-09 06:05] LABS: BASO # 0.1 10*3/uL (0.0-0.1); EOS # 0.1 10*3/uL (0.0-0.4); EOS % 2.2 % (1.0-4.0); HEMATOCRIT 34.2 % (37.0-47.0); LYMPH # 1.1 10*3/uL (1.3-4.4); LYMPH % 16.9 % (27.0-41.0); MEAN CELL VOLUME 90.7 fl (81.0-99.0); MEAN CORPUSCULAR HGB 29.2 pg (27.0-31.0); MEAN CORPUSCULAR HGB CONC 32.2 g/dl (33.0-37.0); MEAN PLATELET VOLUME 10.7 fl (9.6-12.3); MONO % 15.5 % (3.0-9.0); NEUT % 63.9 % (47.0-73.0); PLATELET COUNT AUTOMATED 176 10*3/uL (130-400); RED BLOOD COUNT 3.77 10*6/uL (4.10-5.10); RED CELL DISTRI WIDTH 15.9 % (0-14.5); WHITE BLOOD COUNT 6.3 10*3/uL (4.8-10.8)
[2020-01-09 06:30] LABS: CREATININE 2.71 mg/dL (0.55-1.02); POTASSIUM 4.1 mmol/L (3.5-5.1)
[2020-01-09 08:00] VITALS: BP 114/59
[2020-01-09 12:00] VITALS: BP 116/57
[2020-01-09 16:00] VITALS: BP 121/55
[2020-01-09 20:00] VITALS: BP 79/46
[2020-01-10] VITALS: BP 109/50
[2020-01-10 06:31] LABS: BASO % 0.7 % (0.0-1.0); EOS # 0.2 10*3/uL (0.0-0.4); EOS % 2.7 % (1.0-4.0); HEMATOCRIT 33.9 % (37.0-47.0); LYMPH % 18.6 % (27.0-41.0); MEAN CELL VOLUME 91.4 fl (81.0-99.0); MEAN CORPUSCULAR HGB 28.8 pg (27.0-31.0); MEAN CORPUSCULAR HGB CONC 31.6 g/dl (33.0-37.0); MEAN PLATELET VOLUME 10.5 fl (9.6-12.3); MONO # 0.9 10*3/uL (0.1-1.0); MONO % 15.9 % (3.0-9.0); NEUT # 3.4 10*3/uL (2.3-7.9); NEUT % 61.4 % (47.0-73.0); PLATELET COUNT AUTOMATED 174 10*3/uL (130-400); RED BLOOD COUNT 3.71 10*6/uL (4.10-5.10); RED CELL DISTRI WIDTH 16.3 % (0-14.5); WHITE BLOOD COUNT 5.6 10*3/uL (4.8-10.8)
[2020-01-10 06:36] LABS: CREATININE 2.56 mg/dL (0.55-1.02)
[2020-01-10 08:00] VITALS: BP 110/50
[2020-01-10 12:00] VITALS: BP 106/55
[2020-01-10 16:00] VITALS: BP 113/49
[2020-01-10 20:00] VITALS: BP 137/46
[2020-01-11] VITALS: BP 123/57
[2020-01-11 06:30] LABS: BASO % 0.7 % (0.0-1.0); EOS # 0.1 10*3/uL (0.0-0.4); EOS % 2.4 % (1.0-4.0); HEMATOCRIT 33.9 % (37.0-47.0); LYMPH # 1.2 10*3/uL (1.3-4.4); LYMPH % 21.4 % (27.0-41.0); MEAN CELL VOLUME 90.2 fl (81.0-99.0); MEAN CORPUSCULAR HGB 30.1 pg (27.0-31.0); MEAN CORPUSCULAR HGB CONC 33.3 g/dl (33.0-37.0); MONO % 16.4 % (3.0-9.0); NEUT # 3.4 10*3/uL (2.3-7.9); NEUT % 58.6 % (47.0-73.0); PLATELET COUNT AUTOMATED 183 10*3/uL (130-400); RED BLOOD COUNT 3.76 10*6/uL (4.10-5.10); RED CELL DISTRI WIDTH 16.2 % (0-14.5); WHITE BLOOD COUNT 5.8 10*3/uL (4.8-10.8)
[2020-01-11 06:53] LABS: CREATININE 2.6 mg/dL (0.55-1.02)
[2020-01-11 08:00] VITALS: BP 113/54
[2020-01-11 16:00] VITALS: BP 107/54
[2020-01-11 20:00] VITALS: BP 115/48
[2020-01-11 23:35] LABS: BILIRUBIN NEGATIVE (NEGATIVE); BLOOD NEGATIVE (NEGATIVE); CLARITY CLEAR (CLEAR); COLOR YELLOW (YELLOW); GLUCOSE NEGATIVE (NEGATIVE); KETONE NEGATIVE (NEGATIVE); LEUKO ESTERASE NEGATIVE (NEGATIVE); NITRITE NEGATIVE (NEGATIVE); SPECIFIC GRAVITY 1.025 (1.005-1.030); UROBILINOGEN 0.2 E.U./dl (0.2-1.0)
[2020-01-11 23:52] LABS: BACTERIA 1+; EPITHELIAL CELLS 41-50
[2020-01-12] VITALS: BP 115/64
[2020-01-12 08:00] VITALS: BP 112/59
== END 2020-01-12 09:54 | disposition short-term general hospital (02) | DRG 682 ==
LOC: ED 12:33 → 5E 15:30 → EDHOLD 15:30 → 5E 16:10
PROVIDERS: Internal Medicine; Internal Medicine Nephrology; Nurse Practitioner Family; ADMIT Internal Medicine
DX: N17.0 Acute kidney failure with tubular necrosis (principal); I50.21 Acute systolic (congestive) heart failure; G93.41 Metabolic encephalopathy; L03.116 Cellulitis of left lower limb; N39.0 Urinary tract infection, site not specified; I13.0 Hypertensive heart and chronic kidney disease with heart failure and stage 1 through stage 4 chronic kidney disease, or unspecified chronic kidney disease; I48.21 Permanent atrial fibrillation; I42.9 Cardiomyopathy, unspecified; L03.115 Cellulitis of right lower limb; N18.4 Chronic kidney disease, stage 4 (severe); G31.9 Degenerative disease of nervous system, unspecified; I25.10 Atherosclerotic heart disease of native coronary artery without angina pectoris; M50.30 Other cervical disc degeneration, unspecified cervical region; E11.22 Type 2 diabetes mellitus with diabetic chronic kidney disease; E11.51 Type 2 diabetes mellitus with diabetic peripheral angiopathy without gangrene; F41.1 Generalized anxiety disorder; E87.8 Other disorders of electrolyte and fluid balance, not elsewhere classified; E11.65 Type 2 diabetes mellitus with hyperglycemia; E87.5 Hyperkalemia; K59.00 Constipation, unspecified; R09.02 Hypoxemia; I87.2 Venous insufficiency (chronic) (peripheral); B96.20 Unspecified Escherichia coli [E. coli] as the cause of diseases classified elsewhere; E03.9 Hypothyroidism, unspecified; E55.9 Vitamin D deficiency, unspecified; E78.00 Pure hypercholesterolemia, unspecified; M47.812 Spondylosis without myelopathy or radiculopathy, cervical region; K21.9 Gastro-esophageal reflux disease without esophagitis; E66.01 Morbid (severe) obesity due to excess calories; I27.20 Pulmonary hypertension, unspecified; I35.0 Nonrheumatic aortic (valve) stenosis; G47.33 Obstructive sleep apnea (adult) (pediatric); I27.81 Cor pulmonale (chronic); D50.9 Iron deficiency anemia, unspecified; M51.26 Other intervertebral disc displacement, lumbar region; E78.5 Hyperlipidemia, unspecified; S30.0XXA Contusion of lower back and pelvis, initial encounter; W18.30XA Fall on same level, unspecified, initial encounter; Y93.89 Activity, other specified; Y92.89 Other specified places as the place of occurrence of the external cause; Z95.0 Presence of cardiac pacemaker; Z88.8 Allergy status to other drugs, medicaments and biological substances; Y99.8 Other external cause status; Z91.041 Radiographic dye allergy status; Z90.49 Acquired absence of other specified parts of digestive tract; Z95.5 Presence of coronary angioplasty implant and graft; Z98.42 Cataract extraction status, left eye; Z98.41 Cataract extraction status, right eye; Z83.3 Family history of diabetes mellitus; Z82.49 Family history of ischemic heart disease and other diseases of the circulatory system; I25.2 Old myocardial infarction; Z80.8 Family history of malignant neoplasm of other organs or systems; Z79.899 Other long term (current) drug therapy; Z79.82 Long term (current) use of aspirin; Z79.84 Long term (current) use of oral hypoglycemic drugs

== ENCOUNTER → 2020-02-03 | Outpatient (CLI) | payer MEDICARE ==
[~2020-02-03] MED LIST changes: +ALDACTONE25 MG PO; +ASPIR 8181 MG PO; +Amaryl2 MG PO; +CITALOPRAM40 MG PO; +GOOD NEIGHBOR P20 MG PO; +ISOSORBIDE30 MG PO; +Lopressor25 MG PO; +OXYBUTYNIN ER15 MG PO; +PEPCID40 MG PO; +POTASSIUM CHLO20 ME4 PO; +RENVELA800 MG PO; +TORSEMIDE100 MG PO
[2020-02-03 10:47] LABS: BASO % 0.5 % (0.0-1.0); EOS # 0.1 10*3/uL (0.0-0.4); EOS % 2.9 % (1.0-4.0); HEMATOCRIT 34.4 % (37.0-47.0); LYMPH # 0.9 10*3/uL (1.3-4.4); LYMPH % 21.5 % (27.0-41.0); MEAN CELL VOLUME 87.3 fl (81.0-99.0); MEAN CORPUSCULAR HGB 28.2 pg (27.0-31.0); MEAN CORPUSCULAR HGB CONC 32.3 g/dl (33.0-37.0); MEAN PLATELET VOLUME 10.2 fl (9.6-12.3); MONO # 0.7 10*3/uL (0.1-1.0); MONO % 15.5 % (3.0-9.0); NEUT # 2.5 10*3/uL (2.3-7.9); NEUT % 59.1 % (47.0-73.0); PLATELET COUNT AUTOMATED 203 10*3/uL (130-400); RED BLOOD COUNT 3.94 10*6/uL (4.10-5.10); RED CELL DISTRI WIDTH 16.4 % (0-14.5); WHITE BLOOD COUNT 4.2 10*3/uL (4.8-10.8)
[2020-02-03 11:01] LABS: ALBUMIN 3.3 gm/dl (3.1-4.5); CREATININE 3.18 mg/dL (0.55-1.02); POTASSIUM 4.1 mmol/L (3.5-5.1); TOTAL PROTEIN 7.2 gm/dL (6.4-8.2)
== END | disposition home or self-care (01) ==
LOC: LAB 10:10
PROVIDERS: Internal Medicine Nephrology
DX: Z11.59 Encounter for screening for other viral diseases (principal); N18.4 Chronic kidney disease, stage 4 (severe); R53.83 Other fatigue

== ENCOUNTER 2020-02-29 11:29 | Inpatient (IN) | payer MEDICARE ==
[~2020-02-29] VITALS: Ht 167.6 cm; Wt 105.7 kg
[~2020-02-29 11:29] MED LIST changes: -ALDACTONE25 MG PO; -Lopressor25 MG PO; -POTASSIUM CHLO20 ME4 PO; -RENVELA800 MG PO; -TORSEMIDE100 MG PO
[2020-02-29 11:49] VITALS: BP 101/37
[2020-02-29 12:57] LABS: BASO % 0.8 % (0.0-1.0); EOS # 0.1 10*3/uL (0.0-0.4); EOS % 1.2 % (1.0-4.0); HEMATOCRIT 29.1 % (37.0-47.0); LYMPH # 0.7 10*3/uL (1.3-4.4); LYMPH % 14.2 % (27.0-41.0); MEAN CELL VOLUME 88.7 fl (81.0-99.0); MEAN CORPUSCULAR HGB 28.7 pg (27.0-31.0); MEAN CORPUSCULAR HGB CONC 32.3 g/dl (33.0-37.0); MEAN PLATELET VOLUME 9.4 fl (9.6-12.3); MONO # 0.7 10*3/uL (0.1-1.0); MONO % 14.6 % (3.0-9.0); NEUT # 3.3 10*3/uL (2.3-7.9); NEUT % 68.6 % (47.0-73.0); PLATELET COUNT AUTOMATED 161 10*3/uL (130-400); RED BLOOD COUNT 3.28 10*6/uL (4.10-5.10); RED CELL DISTRI WIDTH 17.6 % (0-14.5); WHITE BLOOD COUNT 4.9 10*3/uL (4.8-10.8)
[2020-02-29 13:11] LABS: ALBUMIN 2.9 gm/dl (3.1-4.5); CREATININE 4.76 mg/dL (0.55-1.02); POTASSIUM 4.7 mmol/L (3.5-5.1); TOTAL PROTEIN 6.7 gm/dL (6.4-8.2)
--- NOTE | 2020-02-29 13:24 | NUR ---
PATIENT IS RESTING IN BED AT THIS TIME. THE BANDAGE WAS REMOVED THAT WAS ON HER LEFT FOOT. THERE IS DRIED BLOOD ON DIGIT ONE, TWO, THREE AND FOUR. THE PATIENTS THIRD DIGIT DOES HAVE VISIABLE NAIL DAMAGE WITH A MINIMAL AMOUNT OF BLEEDING PRESENT. PATIENT IS REQUESTING MEDICATION FOR PAIN IN HER LEFT FOOT THAT SHE RATES A PAIN A 5/10. PROVIDER NOTIFIED.
--- NOTE | 2020-02-29 14:00 | NUR ---
PATIENT STATES THAT THE PAIN MEDICATION WAS NOT EFFECTIVE.
[2020-02-29] MEDS ORDERED: ALDACTONE25 MG PO (14:06)
[2020-02-29] MEDS ORDERED: RENVELA800 MG PO (14:07)
--- NOTE | 2020-02-29 14:07 | NUR ---
PATIENT WAS ASSISTED ON AND OFF THE BED JONES TO OBTAIN URINE SPECIMEN. PATIENT GAVE CONSENT THAT I CAN SPEAK TO HER AND PROVIDE HIM WITH AN UPDATE REGARDING HER VISIT. PATIENT HAD 2 GOLD COLORED EARRINGS, A GOLD COLORED CHAIN WITH A GOLD COLORED CROSS AND GOLD COLORED HEART AND ANOTHER GOLD COLORED CHAIN WITH AN DIANA AND SHE INSTRUCTED ME TO GIVE THE BELONGINGS TO HER .
[2020-02-29] MEDS ORDERED: POTASSIUM CHLO20 ME4 PO (14:09)
[2020-02-29] MEDS ORDERED: Lopressor25 MG PO (14:10)
[2020-02-29] MEDS ORDERED: TORSEMIDE100 MG PO (14:11)
[2020-02-29 14:16] LABS: BILIRUBIN NEGATIVE (NEGATIVE); BLOOD NEGATIVE (NEGATIVE); CLARITY SL CLOUDY (CLEAR); COLOR YELLOW (YELLOW); GLUCOSE NEGATIVE (NEGATIVE); KETONE NEGATIVE (NEGATIVE); LEUKO ESTERASE NEGATIVE (NEGATIVE); NITRITE NEGATIVE (NEGATIVE); PH 6.5 (5.0-9.0); UROBILINOGEN 0.2 E.U./dl (0.2-1.0)
[2020-02-29 14:19] LABS: BACTERIA TRACE; WBC 0-2 wbc/hpf (0-5)
--- NOTE | 2020-02-29 14:22 | NUR ---
I SPOKE TO THE PATIENTS IN REGARD TO THE PATIENTS VISIT. HE WAS INFORMED THAT SHE WAS BEING ADMITTED AND THE PATIENT STATED THAT SHE WAS GOING TO CALL HIM HERSELF.
[2020-02-29 14:48] VITALS: BP 90/60
[2020-02-29 15:13] VITALS: BP 117/48
--- NOTE | 2020-02-29 16:13 | NUR ---
NOTIFIED OF ALL WOUNDS. SAID HE WOULD PUT ORDERS IN.
--- NOTE | 2020-02-29 16:33 | NUR ---
PETERSON GIVEN FOR COMPLAINTS OF PAIN TO RT THUMB AND LEFT FOOT. CALL LIGHT IN REACH. WILL MONITOR.
--- NOTE | 2020-02-29 16:44 | NUR ---
PODIATRY RESIDENT MADE AWARE OF CONSULT. SAID HE WOULD SEE HER TODAY. NOTIFIED OF CONSULT. NEW ORDERS REC'D. SEE SEP.
--- NOTE | 2020-02-29 17:32 | NUR ---
PER PT, PETERSON EFFECTIVE. CALL LIGHT IN REACH.
[2020-02-29 20:00] VITALS: BP 98/49
--- NOTE | 2020-02-29 23:10 | NUR ---
PRN DULCOLAX GIVEN FOR PT COMPLAINTS OF NO BOWEL MOVEMEMNT IN A COUPLE DAYS. PATIENT STATED THAT SHE USUALLY GETS BACKED UP BECAUSE OF HER HOME PAIN MEDICATION AND ALWAYS HAS TO TAKE SOMETHING TO GO. PATIENT ALSO GIVEN SLEEPING PILL AT 2311. CALL LIGHT WITHIN REACH, WILL MONITOR
--- NOTE | 2020-02-29 23:35 | NUR ---
PATIENT LAYING IN BED. STATES HER NORMAL ULTRAM IS INEFFECTIVE FOR HER PAIN. STATES HER PAIN IS SO BAD. PATIENT OFF AND ON CRYING. AND THEN LAUGHING AND JOKING WITH THIS NURSE. STATES THE PAIN IS THE WORST IN HER RIGHT THUMB. ANY LIGHT TOUCH PATIENT WITHDRAWLS WITH SEVERE PAIN. PRN NORCO GIVEN FOR COMPLAINTS OF PAIN. CALL LIGHT WITHIN REACH, WILL MONITOR
[2020-03-01] VITALS: BP 106/60
--- NOTE | 2020-03-01 | NUR ---
PRN SLEEPING PILL INEFFECTIVE AT THIS TIME. PATIENT STATES SHE'S WAITING FOR HER PAIN PILL TO KICK IN. CALL LIGHT WITHIN REACH, WILL MONITOR
--- NOTE | 2020-03-01 00:30 | NUR ---
PRN MEDICATION APPEARS EFFECTIVE AT THIS TIME. PATIENT SLEEPING. NO DISTRESS NOTED. CALL LIGHT WITHIN REACH, IV FLUIDS INFUSING PER ORDER. CALL LIGHT WITHIN REACH, WILL MONITOR
--- NOTE | 2020-03-01 03:13 | NUR ---
PATIENT AT THIS TIME NEEDING ADJUSTED IN BED. PATIENT OFF AND ON CRYING AND THEN LAUGHING AND JOKING WITH STAFF. ASKED PATIENT IF SHE WOULD LIKE THE NORCO SHE HAD EARLIER FOR PAIN. PATIENT BEGAN CRYIN GAND STATED IT DOESN'T HELP. ASKED MULTIPLE TIMES AND PATIENT CONTINUED TO REFUSE MEDICATION WHILE CRYING. THIS NURSE WAS WALKING OUT OF ROOM, PATIENT INQUIRED ABOUT WHAT MEDICATION THIS NURSE WAS GOING TO GIVE HER. EXPLAINED IT WAS THE NORCO. SHE STATED SHE'LL TAKE IT AND A WARM BLANKET
--- NOTE | 2020-03-01 03:19 | NUR ---
PRN PETERSON GIVEN FOR PT COMPLAINTS OF PAIN "ALL OVER" ESPECIALLY HER BACK. RATING IT 10/10. CALL LIGHT WITHIN REACH, WILL MONITOR
--- NOTE | 2020-03-01 03:37 | NUR ---
WHILE ASSISTING PATIENT TO ROLL OVER TO HER RIGHT SIDE. PATIENTS PINKY FINGER ON HER RIGHT HAND WAS BLEEDING. PATIENT STATED SHE PULLED HER NAIL OFF CAUSE IT WAS BOTHERING HER. PATIENT REFUSED PICTURES, BUT TOLD THE PATIENT WE HAD TO MEASURE IT AND WATCH IT TO MAKE SURE IT DIDN'T GET INFECTED. BANDAID APPLIED TO CONTROL THE BLEEDING AT THIS TIME. WILL AWAIT WOUND CARE ORDERS
--- NOTE | 2020-03-01 04:00 | NUR ---
DR. JIMENEZ AND HAND SHOE CUTTER MADE AWARE OF PATIENTS NEW SKIN IMPAIRMENT. DR. JIMENEZ STATED IT WASOK TO ENTER WHATEVER ORDER THE WOUND CARE NURSE RECOMMNDS FOR TREATMENT
--- NOTE | 2020-03-01 04:15 | NUR ---
PRN NORCO APPEARS EFFECTIVE, PT SLEEPING
--- NOTE | 2020-03-01 06:24 | NUR ---
24 HR chart check completed.
[2020-03-01 06:25] LABS: BASO % 0.8 % (0.0-1.0); EOS # 0.2 10*3/uL (0.0-0.4); EOS % 3.3 % (1.0-4.0); HEMATOCRIT 28.3 % (37.0-47.0); LYMPH # 1.2 10*3/uL (1.3-4.4); LYMPH % 23.6 % (27.0-41.0); MEAN CELL VOLUME 89.8 fl (81.0-99.0); MEAN CORPUSCULAR HGB 28.9 pg (27.0-31.0); MEAN CORPUSCULAR HGB CONC 32.2 g/dl (33.0-37.0); MEAN PLATELET VOLUME 10.3 fl (9.6-12.3); MONO # 0.8 10*3/uL (0.1-1.0); MONO % 17.2 % (3.0-9.0); NEUT # 2.7 10*3/uL (2.3-7.9); NEUT % 54.9 % (47.0-73.0); PLATELET COUNT AUTOMATED 172 10*3/uL (130-400); RED BLOOD COUNT 3.15 10*6/uL (4.10-5.10); RED CELL DISTRI WIDTH 17.8 % (0-14.5); WHITE BLOOD COUNT 4.9 10*3/uL (4.8-10.8)
[2020-03-01 06:40] LABS: ALBUMIN 2.9 gm/dl (3.1-4.5); CREATININE 4.68 mg/dL (0.55-1.02); POTASSIUM 4.4 mmol/L (3.5-5.1); TOTAL PROTEIN 6.3 gm/dL (6.4-8.2)
[2020-03-01 06:47] LABS: THYROID STIM HORMONE (HS) 11.7 uIU/ml (0.358-4.75)
[2020-03-01 06:50] LABS: ACT PARTIAL THROMBO TIME 28.2 SECONDS (20.0-32.1)
[2020-03-01 07:24] LABS: VITAMIN D, 25-HYDROXY 39.4 ng/mL (30-100)
--- NOTE | 2020-03-01 07:30 | NUR ---
ROUTINE ULTRAM RELIEVING PAIN/DISCOMFORT. WILL CONTINUE TO MONITOR. CALL LIGHT WITHIN REACH.
--- NOTE | 2020-03-01 07:32 | NUR ---
PHYSICAL THERAPY Screen and PT orders received, will follow. Thank you. Robbie Smith SPT Rocio Guerrero PT
[2020-03-01 08:00] VITALS: BP 101/55
--- NOTE | 2020-03-01 08:29 | NUR ---
BREAKFAST TRAY AT BEDSIDE. PT REPOSITIONED FOR BREAKFAST AT THIS TIME .WILL CONTINUE TO MONITOR. IV FLUIDS COMPLETE. WILL CONTINUE TO MONITOR. CALL LIGHT WITHIN REACH.
--- NOTE | 2020-03-01 08:52 | NUR ---
PHYSICAL THERAPY PT evaluation attempted, per Podiatry hold evaluation at this time until results of BLE ultrasounds are back to rule out DVT more concerning for LLE. Spoke w nsg regarding above. Will attempt when the tests are completed. Thank you. Robbie Smith SPT Rocio Guerrero PT
--- NOTE | 2020-03-01 09:47 | NUR ---
PATIENT TAKEN DOWN VIA CART FOR SCHEDULED U/S.
--- NOTE | 2020-03-01 10:44 | NUR ---
PATIENT RETURNED FROM SCHEDULED U/S.
--- NOTE | 2020-03-01 11:00 | NUR ---
Watch Assembly Inspector in to talk to patient. Patient states lives at home with her . There are 0 steps in the home. Physician: Dr. Constantino Foreman Pharmacy: [facility] health services: wants [facility] Patient's level of ADLs: MINIMAL ASSIST Patient has working utilities: yes DME: walker, wheelchair, shower chair Follow-up physician's appointment after d/c: she prefers to make her own follow up appt after discharge Does patient want to access PORTAL?: no Discharge plan discussed with patient. She lives at home with her . She needs minimal assistance in her ADLs and ambulates with a walker or gets around in a wheelchair. She states her back wheel on her wheelchair is broken and she called [facility] when she was discharged last time but the company never called her back. Explained CM will reach out to [facility]. Discussed short term rehab and she declines. Discussed home health care services and she is agreeable. When provided with a list of facilities she states she had [facility] before and does not want [facility] again. When provided with a list of agencies she chose [facility]. She would also like a bariatric BSC. Dr. Foreman notified. When medically stable she will be discharged to home with [facility] services. She states her will provide transportation on discharge. RITA PRICE
--- NOTE | 2020-03-01 11:15 | NUR ---
PODIATRY CALLED AT THIS TIME REGARDING DRESSINGS TO BLLE. PODIATRY TO MANAGE DRESSINGS PER ORDER.
--- NOTE | 2020-03-01 11:27 | NUR ---
IN TO SEE PATIENT REGARDING BLLE DRESSINGS.
--- NOTE | 2020-03-01 11:34 | NUR ---
NORCO GIVEN PER PRN ORDER FOR C/O GENERALIZED PAIN/DISCOMFORT. RATES PAIN 8/10. WILL MONITOR EFFECTIVENESS.
[2020-03-01 12:00] VITALS: BP 122/62
--- NOTE | 2020-03-01 12:34 | NUR ---
NORCO RELIEVING PAIN PER PT. WILL CONTINUE TO MONITOR.
--- NOTE | 2020-03-01 12:52 | NUR ---
Spoke to Mary at [facility] regarding back wheel of wheelchair being broken. Mary is going to enter a help ticket. The company is normally is in the [facility] area on and will reach out to her for service. Notified , Serafin, at [phone] and patient. states that he will be home and will wait for the phone call.
--- NOTE | 2020-03-01 14:15 | NUR ---
Occupational Therapy evaluation completed on five with full evaluation to follow. Recommend occupational therapy per plan of care and SNF upon discharge. Thank you for this referral. Christy Umaña OTR/L
--- NOTE | 2020-03-01 15:25 | NUR ---
PHYSICAL THERAPY Physical Therapy evaluation completed on 5th floor with full evaluation to follow. Recommend physical therapy per plan of care and SNF upon discharge. Thank you for this referral. Robbie Smith SPT Rocio Guerrero PT
[2020-03-01 16:00] VITALS: BP 104/48
--- NOTE | 2020-03-01 16:26 | NUR ---
IN TO APPLY LATANYA GARNER TO [facility].
--- NOTE | 2020-03-01 16:50 | NUR ---
TSANG CATHETER INSERTED PER ORDER. PT TOLERATED WELL. WILL MONITOR OUTPUT.
--- NOTE | 2020-03-01 16:52 | NUR ---
NOTIFIED REGARING PATIENT C/O CONSTIPATION. NEW ORDERS TO BE ENTERED PER PHYSICIAN.
--- NOTE | 2020-03-01 17:38 | NUR ---
NOTIFIED OF CONSULT AND WILL SEE PATIENT IN THE MORNING.
--- NOTE | 2020-03-01 18:15 | NUR ---
NORCO GIVEN PER PRN ORDER FOR C/O GENERALIZED PAIN/DISCOMFORT. WILL MONITOR EFFECTIVENESS.
--- NOTE | 2020-03-01 19:00 | NUR ---
24 HOURS URINE STARTED TSANG BAG IN ICE.
--- NOTE | 2020-03-01 19:15 | NUR ---
NORCO EFFECTIVE FOR PAIN PER PT.
[2020-03-01 20:00] VITALS: BP 104/49
[2020-03-02] VITALS: BP 113/83
--- NOTE | 2020-03-02 04:07 | NUR ---
24 HR chart check completed.
--- NOTE | 2020-03-02 05:39 | NUR ---
NORCO GIVEN PER ORDER FOR ALL OVER PAIN "HURTS SO BAD". SEE MAR.
[2020-03-02 07:01] LABS: CREATININE 4.77 mg/dL (0.55-1.02); POTASSIUM 4.6 mmol/L (3.5-5.1); TOTAL PROTEIN 6.8 gm/dL (6.4-8.2)
[2020-03-02 08:00] VITALS: BP 100/48
--- NOTE | 2020-03-02 09:00 | NUR ---
CM in to see patient. Discussed [facility] reaching out to her today regarding fixing her bariatric wheelchair. She states [facility] reached out to her and stated they would be out today to fix her wheelchair. Asked patient to let CM know if or if not her wheelchair gets fixed today. She agreed. When medically stable she will be discharged to home with [facility] services. CM will continue to follow for any discharge planning needs.
--- NOTE | 2020-03-02 10:55 | NUR ---
LACTULOSE GIVEN PER PRN ORDER FOR C/O CONSTIPATION. WILL MONITOR EFFECTIVENESS.
--- NOTE | 2020-03-02 11:55 | NUR ---
PETERSON RELIEVING PAIN PER PT.
[2020-03-02 12:00] VITALS: BP 98/42
--- NOTE | 2020-03-02 13:38 | NUR ---
Pt declined OT this date. She stated, "These feet had me up all night". She added that it hurts to stand. She declined sitting edge of bed also. She stated, "Not today but I'll start tomorrow". Continue OT POC.
--- NOTE | 2020-03-02 14:22 | NUR ---
Faxed home health care order to [facility]
--- NOTE | 2020-03-02 14:55 | NUR ---
PHYSICAL THERAPY PT SUPINE IN BED UPON ARRIVAL. PT IDENTIFIED BY NAME AND . PT AGREED TO ALL PT TREATMENT THIS VISIT. PT PERFORMED SUPINE TO SIT EOB WITH [place] X2 AND VC'S FOR HAND PLACEMENT AND SAFETY. PT PERFORMED STS FROM EOB TO FWW WITH [place] X2 WITH VC'D FOR SAFETY AND PROPER TECHNIQUE. PT PERFORMED STANDING TOLERANCE FOR 2MINS WITH [place] X1 AND ONE NOTED LOB REQUIRIGN ASSITANCE TO GET TO BASE OF SUPPORT. PT PERFORMED STS TO EOB WITH MINaX1 AND VC'S FOR HAND PLACEMENT AND SAFETY. PT PERFORMED STS FROM EOB TO FWW WITH CGA WITH PROPER TECHNIQUE AND SAFETY. PT PERFORMED STANDING TOLERANCE FOR 1.5MINS WITH CGA. PT PERFORMED STS TO EOB WITH CGA WITH PROPER TECHNIQUE AND SAFETY. PT PERFORMED SIT TO SUPINE WITH MODa X2 MORE WITH ASSIST AT BLE. PT SUPINE IN BED WITH CALL LIGHT IN HAND AND AND BED ALARM ON. PT REPROTED NO OTHER NEEDS AT THIS TIME. PT SEEN 1:1 FOR 21MIN. ROSARIO NGUYEN PTA
[2020-03-02 16:00] VITALS: BP 131/56
--- NOTE | 2020-03-02 17:05 | NUR ---
PT MEDICATED WITH IV ZOFRAN PER PRN ORDER FOR C/O NAUSEA. WILL MONITOR EFFECTIVENESS.
--- NOTE | 2020-03-02 18:54 | NUR ---
DULCOLAX SUPPOSITORY GIVEN AT THIS TIME PER PRN ORDER FOR CONSTIPATION. WILL MONITOR EFFECTIVENESS.
[2020-03-02 19:27] LABS: URINE CREATININE RANDOM 96.3 mg/dL
[2020-03-02 20:00] VITALS: BP 104/53
--- NOTE | 2020-03-02 21:00 | NUR ---
PATIENT UNSUCCESSFUL WITH HAVING STOOL AFTER SUPPOSITIORY AND WANTS ENEMA GIVEN. TAP WATER ENEMA GIVEN PER ORDER PER POLICY/PROCEDURE AND PATIENT UNABLE TO HAVE FORMED BOWEL MOVMENT ONLY HAD LIQUID STOOL. BATH WAS GIVEN AFTER ENEMA AND BEDLINENS CHANGED.
--- NOTE | 2020-03-02 23:45 | NUR ---
ZOFRAN GIVEN PER ORDER FOR NAUSEA. PATIENT REFUSED TO TAKE PO MEDICATIONS.
[2020-03-03] VITALS: BP 90/54
--- NOTE | 2020-03-03 04:25 | NUR ---
[facility] FOR VERY SMALL FORMED AND LIQUID BROWN STOOL. BEDLINENS CHANGED.
--- NOTE | 2020-03-03 04:30 | NUR ---
24 HR chart check completed.
--- NOTE | 2020-03-03 07:35 | NUR ---
PHYSICAL THERAPY PT SUPINE IN BED UPON ARRIVAL. PT IDENTIFIED BY NAME AND . PT AGREED TO ALL PT TREATMENT THIS VISIT. PT HAS 4 BED RAILS UP AND BED ALARM ON UPON ARRIVAL AND A CATHETER. PT REPORTED 7/10 PAIN ALL OVER. DURING TREATMENT AIDE CAME IN TO TAKE PTS VITALS AND PTS BP WAS 101/42 AND PULSE 79 BPM. PT HAD NO C/O DIZZINESS, HEADACHE, SOB OR CHEST PAIN. PT PERFORMED SUPINE TO SIT WITH HANDHELD ASSIST AND VC'S FOR SAFETY AND PROPER TECHNIQUE WITH USE OF BED RAIL. PT PERFORMED SITTING EOB WITH PROPER POSTURE FOR 5MINS WITH USE OF ONE UE FOR ASSITANCE. PT PERFORMED THE FOLLOWING EXERCISES 10X EACH TO INCREASE LE AND TRUCK STRENGTH. LAQ, MARCH, TOE RAISE, HEEL RAISE, GLUTE SET, HIP ADDUCTION AND TRUCK FLEXTION. PT PERFORMED SIT TO SUPINE WITH MODa OF BLE. PT REQUIRED MAXa X2 TO GET PULLED TO HEAD OF BED. PT VERY EMOTHIONAL THIS VISIT CRYING OFF AND ON THROUGH OUT SESSION SAYING PT MISSED AND WANTS TO GO HOME. PT SUPINE IN BED WITH 4 BED RAILS UP BED ALARM ON AND CALL LIGHT IN HAND. PT REPORTED NO OTHER NEEDS AT THIS TIME. PT SEEN 1:1 FOR 23 MINS. ROSARIO NGUYEN PTA
--- NOTE | 2020-03-03 09:00 | NUR ---
CM in to see patient. Discussed whether her home wheelchair was fixed yesterday. She states she didn't know. Will reach out to . Discussed home health care services and she remains agreeable. Referral was faxed to [facility]. She states she requested to be set up for breakfast and no one has been in. Assisted with setting up breakfast. When medically stable she will be discharged to home with [facility].
--- NOTE | 2020-03-03 10:36 | NUR ---
Received call from Bella at [facility], they are able to accept patient. Please fax discharge instructions when discharged.
--- NOTE | 2020-03-03 11:21 | NUR ---
Spoke to regarding whether [facility] fixed his 's wheelchair yesterday. he states he was working outside all day. Spoke to Mary Pichardo at [facility] and she states the compactor driver tried to reach out to the number provided and there was no answer. They will try again next . and patient notified.
--- NOTE | 2020-03-03 11:32 | NUR ---
Nutritional Support Services Note: Appetite is good for meals. Encouraged healthy eating and better compliance to diet at home. Renal diet discussed. She has no questions at this time. Will follow. Charo Nair Rdn LD
--- NOTE | 2020-03-03 11:45 | NUR ---
OT NOTE PATIENT SEEN 1:1 OT THIS DATE TOLERATING 18 MINUTES THIS SESSION. PATIENT IN BED UPON ARRIVAL. PATIENT DEMONSTRATED PLEASANT DEMEANOR UPON ARRIVAL. PATIENT WILLING TO COMPLETE THERAPY TO TOLERANCE WITH COMPLAIN 7/10 PAIN IN BLE, BACK AND SHOULDERS. PATIENT COMPLETED SUPINE TO SIT EOB MOD A. COMPLETED GROOMING SITTING EOB CGA TO COMB HAIR AND MAINTAIN BALANCE WITH FAIR SIT TOLERANCE THIS DATE. COMPLETED BUE AROM ALL PLANES 5 EXERCISES X 10 REPS ECH CGA WITH MOD VERBAL CUES TECHNIQUE AND FORM.PATIENT COMPLETED SIT TO STAND FROM BED MIN A WITH LOW BENT RAISE SIDE STEPPING TO HEAD OF BED COMPLAINING OF 7/10 PAIN BLE AND POOR STAND TOLERANCE. PATIENT COMPLETED SIT TO SUPINE MOD A AND TEARFUL END OF SESSION COMPLAINING OF 7/10 PAIN IN BLE. NURSING NOTIFIED THAT PATIENT WAS TEARFUL END OF SESSION. PATIENT IN BED WITH BED ALARM INTACT AND CALL LIGHT WITHIN REACH. NO FURTHER NEEDS VERBALIZED. CONTINUE TOWARDS PLAN OF CARE. YUNG PONCE
[2020-03-03 12:00] VITALS: BP 95/56
[2020-03-03 13:47] LABS: BASO # 0.1 10*3/uL (0.0-0.1); BASO % 0.6 % (0.0-1.0); EOS # 0.1 10*3/uL (0.0-0.4); EOS % 1.5 % (1.0-4.0); HEMATOCRIT 32.5 % (37.0-47.0); LYMPH # 1.5 10*3/uL (1.3-4.4); LYMPH % 19.4 % (27.0-41.0); MEAN CELL VOLUME 91.8 fl (81.0-99.0); MEAN CORPUSCULAR HGB 28.8 pg (27.0-31.0); MEAN CORPUSCULAR HGB CONC 31.4 g/dl (33.0-37.0); MEAN PLATELET VOLUME 9.9 fl (9.6-12.3); MONO # 1.3 10*3/uL (0.1-1.0); MONO % 16.6 % (3.0-9.0); NEUT # 4.9 10*3/uL (2.3-7.9); NEUT % 61.5 % (47.0-73.0); PLATELET COUNT AUTOMATED 183 10*3/uL (130-400); RED BLOOD COUNT 3.54 10*6/uL (4.10-5.10); RED CELL DISTRI WIDTH 18.5 % (0-14.5); WHITE BLOOD COUNT 7.9 10*3/uL (4.8-10.8)
[2020-03-03 13:58] LABS: CREATININE 4.95 mg/dL (0.55-1.02); POTASSIUM 5.1 mmol/L (3.5-5.1)
[2020-03-03 15:45] VITALS: BP 102/50
--- NOTE | 2020-03-03 15:45 | NUR ---
TOOK OVER CARE OF PT AT THIS TIME. PT RESTING IN BED. RESPIRATIONS EASY AND UNLABORED. PT APPEARS ANXIOUS AND CRYING, REFUSING TO EAT DINNER. WILL TRY TO ENCOURAGE PT TO EAT. PT C/O PAIN TO LEFT LOWER EXTREMITY. BP OBTAINED, 102/50. WILL MEDICATE PT AND CONTINUE TO MONITOR. CALL LIGHT IN REACH. SAFETY MEASURES IN PLACE.
[2020-03-03 16:00] VITALS: BP 108/85
--- NOTE | 2020-03-03 16:10 | NUR ---
PHYSICAL THERAPY CO-SIGN I approve of the Physical Therapy notes written above. Rocio Guerrero PT
--- NOTE | 2020-03-03 16:37 | NUR ---
PT GIVEN NORCO AT THIS TIME DUE TO C/O PAIN TO LEFT LEG. WILL MONITOR FOR EFFECTIVENESS. CALL LIGHT IN REACH.
--- NOTE | 2020-03-03 17:37 | NUR ---
PETERSON EFFECTIVE PER PT.
--- NOTE | 2020-03-03 18:13 | NUR ---
PT NOT GIVEN 80 MG LASIX TONIGHT DUE TO ORDERS GIVEN BY DR CUETO TO HOLD LASIX THIS EVENING DUE TO HYPOTENSION AND DIZZINESS. WILL NOTIFY ORACLE APPLICATIONS DEVELOPER OF THIS.
--- NOTE | 2020-03-03 19:15 | NUR ---
DR RICHEY NOTIFIED OF HOLDING IV LASIX.
--- NOTE | 2020-03-03 19:40 | NUR ---
24 HR chart check completed.
[2020-03-03 20:00] VITALS: BP 101/60
--- NOTE | 2020-03-03 21:20 | NUR ---
C/O CONSTIPATION BUT REFUSED TO TAKE LACTOLOSE ONLY WANTED DULCOLAX TABLET. DULCOLAX WAS GIVEN. SEE MAR.
[2020-03-04] VITALS: BP 92/61
--- NOTE | 2020-03-04 02:24 | NUR ---
PATIENT MEDICATED WITH NORCO FOR C/O BLE PAIN. RATES 11/20. WILL CHECK EFFECTIVENESS.
--- NOTE | 2020-03-04 03:20 | NUR ---
NORCO EFFECTIVE FOR PAIN LOWER LEGS PER PT.
--- NOTE | 2020-03-04 03:50 | NUR ---
PT. C/O SHE FEELS LIKE HER BLOOD SUGAR IS DROPPING SHE FEELS SWEATY. BLOOD SUGAR CHECKED BY AKHIL PLATA AND IT WAS 145.
[2020-03-04 06:51] LABS: BASO # 0.1 10*3/uL (0.0-0.1); BASO % 0.8 % (0.0-1.0); EOS # 0.2 10*3/uL (0.0-0.4); EOS % 3.1 % (1.0-4.0); HEMATOCRIT 32.7 % (37.0-47.0); LYMPH # 1.7 10*3/uL (1.3-4.4); LYMPH % 22.9 % (27.0-41.0); MEAN CELL VOLUME 91.6 fl (81.0-99.0); MEAN CORPUSCULAR HGB 28.3 pg (27.0-31.0); MEAN CORPUSCULAR HGB CONC 30.9 g/dl (33.0-37.0); MEAN PLATELET VOLUME 10.2 fl (9.6-12.3); MONO # 1.1 10*3/uL (0.1-1.0); NEUT # 4.2 10*3/uL (2.3-7.9); NEUT % 57.8 % (47.0-73.0); PLATELET COUNT AUTOMATED 220 10*3/uL (130-400); RED BLOOD COUNT 3.57 10*6/uL (4.10-5.10); RED CELL DISTRI WIDTH 18.5 % (0-14.5); WHITE BLOOD COUNT 7.2 10*3/uL (4.8-10.8)
[2020-03-04 07:09] LABS: ALBUMIN 3.1 gm/dl (3.1-4.5); CREATININE 5.25 mg/dL (0.55-1.02); POTASSIUM 4.6 mmol/L (3.5-5.1); TOTAL PROTEIN 6.8 gm/dL (6.4-8.2)
--- NOTE | 2020-03-04 07:30 | NUR ---
TOOK OVER CARE OF PT AT THIS TIME. PT RESTING IN BED. NO S/S OF DISTRESS NOTED. NO COMPLAINTS VOICED BY PT. ASSESSMENT COMPLETE. ALL NEEDS MET. SAFETY MEASURES IN PLACE. CALL LIGHT IN REACH.
[2020-03-04 08:00] VITALS: BP 92/51
[2020-03-04 09:05] VITALS: BP 94/50
--- NOTE | 2020-03-04 09:08 | NUR ---
AM MEDS GIVEN AT THIS TIME. TAKEN WITH EASE. NO S/S OF DISTRESS. NO COMPLAINTS ARE VOICED. RESPIRATIONS UNLABORED. CALL LIGHT IN REACH.
[2020-03-04 12:00] VITALS: BP 110/42
--- NOTE | 2020-03-04 13:20 | NUR ---
DR RICHEY NOTIFIED THAT 0600 DOSAGE OF LASIX WAS HELD THIS AM DUE TO LOW BP. PHYSICIAN IS ASKED ABOUT BUN AND CREATININE LEVELS. LEVELS GIVEN TO PHYSICIAN AND ORDERS RECEIVED TO DISCONTINUE LASIX MEDICATION AT THIS TIME. WILL PLACE APPROPRIATE ORDERS.
[2020-03-04 16:00] VITALS: BP 119/70
--- NOTE | 2020-03-04 16:08 | NUR ---
DR. ARROYO REQUESTING PT UPDATE, LABS AND I&O REVIEWED, NO NEW ORDERS AT THIS TIME.
[2020-03-04 20:00] VITALS: BP 114/59
[2020-03-05] VITALS: BP 104/74
[2020-03-05 06:46] LABS: BASO % 0.6 % (0.0-1.0); EOS # 0.2 10*3/uL (0.0-0.4); EOS % 2.5 % (1.0-4.0); HEMATOCRIT 30.3 % (37.0-47.0); LYMPH # 1.3 10*3/uL (1.3-4.4); LYMPH % 20.2 % (27.0-41.0); MEAN CELL VOLUME 91.3 fl (81.0-99.0); MEAN CORPUSCULAR HGB 28.9 pg (27.0-31.0); MEAN CORPUSCULAR HGB CONC 31.7 g/dl (33.0-37.0); MEAN PLATELET VOLUME 10.5 fl (9.6-12.3); MONO # 0.9 10*3/uL (0.1-1.0); MONO % 13.7 % (3.0-9.0); NEUT # 4.1 10*3/uL (2.3-7.9); NEUT % 62.5 % (47.0-73.0); PLATELET COUNT AUTOMATED 219 10*3/uL (130-400); RED BLOOD COUNT 3.32 10*6/uL (4.10-5.10); RED CELL DISTRI WIDTH 18.6 % (0-14.5); WHITE BLOOD COUNT 6.5 10*3/uL (4.8-10.8)
[2020-03-05 07:02] LABS: POTASSIUM 4.6 mmol/L (3.5-5.1)
[2020-03-05 07:04] LABS: CREATININE 4.89 mg/dL (0.55-1.02); TOTAL PROTEIN 6.7 gm/dL (6.4-8.2)
[2020-03-05 08:00] VITALS: BP 112/52
--- NOTE | 2020-03-05 08:15 | NUR ---
TOOK OVER CARE OF PT AT THIS TIME. PT RESTING IN BED. NO S/S OF DISTRESS NOTED. NO COMPLAINTS VOICED. ASSESSMENT COMPLETE. HOB ELEVATED, SAFETY MEASURES IN PLACE. CALL LIGHT IN REACH.
[2020-03-05 12:00] VITALS: BP 123/62
--- NOTE | 2020-03-05 15:30 | NUR ---
PT WOUND CARE PERFORMED ON BILATERAL TOES. PT TOLERATED WELL. NO S/S OF DISTRESS NOTED. CALL LIGHTIN REACH.
[2020-03-05 16:00] VITALS: BP 125/68
--- NOTE | 2020-03-05 17:34 | NUR ---
Shift chart check completed.
--- NOTE | 2020-03-05 18:22 | NUR ---
PT GIVEN PO DULCOLAX FOR C/O CONSTIPATION AND NO BOWEL MOVEMENT X 3 DAYS. WILL MONITOR FOR EFFECTIVENESS. CALL LIGHT IN REACH.
[2020-03-05 20:00] VITALS: BP 122/56
--- NOTE | 2020-03-05 20:00 | NUR ---
dr mary at bedside. states pt maybe discharged tomorrow with HHC/PT
[2020-03-06] VITALS: BP 105/59
[2020-03-06 06:26] LABS: BASO % 0.6 % (0.0-1.0); EOS # 0.2 10*3/uL (0.0-0.4); EOS % 3.1 % (1.0-4.0); LYMPH # 1.4 10*3/uL (1.3-4.4); LYMPH % 21.9 % (27.0-41.0); MEAN CELL VOLUME 92.3 fl (81.0-99.0); MEAN CORPUSCULAR HGB 29.2 pg (27.0-31.0); MEAN CORPUSCULAR HGB CONC 31.6 g/dl (33.0-37.0); MEAN PLATELET VOLUME 9.5 fl (9.6-12.3); MONO % 16.1 % (3.0-9.0); NEUT # 3.6 10*3/uL (2.3-7.9); NEUT % 57.7 % (47.0-73.0); PLATELET COUNT AUTOMATED 196 10*3/uL (130-400); RED BLOOD COUNT 3.36 10*6/uL (4.10-5.10); RED CELL DISTRI WIDTH 18.7 % (0-14.5); WHITE BLOOD COUNT 6.2 10*3/uL (4.8-10.8)
[2020-03-06 06:32] LABS: CREATININE 4.48 mg/dL (0.55-1.02); POTASSIUM 4.3 mmol/L (3.5-5.1); TOTAL PROTEIN 6.5 gm/dL (6.4-8.2)
[2020-03-06 08:00] VITALS: BP 109/55
--- NOTE | 2020-03-06 09:03 | NUR ---
OT NOTE Pt was seen this A.M. 1:1 for 13 minute OT session. Upon arrival pt was supine in bed. Pt identified by name and and had complaints of 6/10 "all over" resting pain. Pt transferred supine to sit EOB with CGA. Sit to stand completed from bed level with CGA and use of w/w for UE support. Challenged pt's static standing tolerance needed for increased I in self care tasks and functional mobility. Pt was able to tolerate aprox 60-90 seconds at a time before sitting due to fatigue. Functional mobility was completed to the bathroom door with CGA and use of w/w before quick onset of fatigue. While standing pt had complaints of 10/10 B foot pain while weight bearing. Due to pt's pain and level of fatigue no other tasks completed. Pt was left sitting upright in the recliner with call light in hand, tray table in place, and body alarm activated for safety. Continue with rec D/C plan to SNF. ROSARIO Turcios
--- NOTE | 2020-03-06 09:05 | NUR ---
PHYSICAL THERAPY TREATMENT TIME: 08:45 AM - 09:05 AM 20 MINUTES TOTAL Patient presented to therapy in supine with bed alarm activated, call light within reach and head of bed elevated. Patient has catheter. Patient does not have an IV at this time. Patient gives informed consent for treatment. Patient was identified by name and on wristband. Patient reports bilateral toe and foot pain of 6/10 while still in bed. Patient transferred supine to sitting on EOB with CGA X 1. Patient sat on EOB with SBA. Patient completed sit to stand from EOB with CGA. Patient stood at Walker for 1 min 30 seconds minutes total without LOB, but she did have an increased pain level in the bilateral feet to a 10/10 with wt bearing. Patient STS again from EOB with CGA and verbal cues for pushing off the bed with one hand. Patient ambulated with Walker and CGA for 8' X 1 with increased pain in the bilateral feet and no LOB. Patient transferred to bedside chair with CGA AND VERBAL CUES FOR PUTTING HANDS BACK ON ARMRESTS OF CHAIR. Patient was left in bedside chair with chair alarm attached to patient and tested, call light within reach and tray table in front of patient. Patient was 1:1 with this GENERATOR ASSEMBLER for 20 minutes total. CASA PLASCENCIA GENERATOR ASSEMBLER
--- NOTE | 2020-03-06 09:30 | NUR ---
CM in to see patient. No new needs or request at this time. She remains agreeable to [facility]. When medically stable she will be discharged to home with [place].
--- NOTE | 2020-03-06 09:30 | NUR ---
CM in to see patient. No new needs or request at this time. When medically stable she will be discharged to home. Discussed home health care services and she declines. CM will continue to follow for any discharge planning needs.
--- NOTE | 2020-03-06 09:49 | NUR ---
PT GIVEN PRN LACTULOSE DOSE FOR C/O CONSTIPATION
--- NOTE | 2020-03-06 10:50 | NUR ---
PER PT LACTULOSE IS NOT YET EFFECTIVE
--- NOTE | 2020-03-06 12:22 | NUR ---
OT NOTE Pt was seen for 1:1 20 min tx session in room. Pt was sitting up in chair on the phone, agreeable to therapy. Pt identified by name and with complaints of BLE pain which she did not rate on a 0-10 scale. Pt completed UB towel exercises 1X10 at moderate resistance. Pt completed sit to stands X2 at ELA X2 using w/w for UB support. Challenged pts static standing tolerance which she was able to tolerate 1 minute first attempt secondary to fatigue and LLE pain rating 8/10 on the pain scale , 2 minutes second attempt at CGA. Pt left sitting in chair with alarm on and call light in reach. Therapist ordered pts lunch at this time. Continue with recommended d/c plan to SNF. TOMMY Hernandez/ERENDIRA Huerta/Sarah
--- NOTE | 2020-03-06 13:53 | NUR ---
DR CUETO ROUNDED AND SEEN PT AND ATTEMPTED TO D/C PT AGAIN. PT STATES THAT "THEY ARE BUILDING A WHEELCHAIR RAMP AND SHE CAN'T GO HOME".PT TO D/C TOMORROW WITH [facility].
--- NOTE | 2020-03-06 13:59 | NUR ---
PER PT LACTULOSE STILL IS INEFFECTIVE. WILL REASSESS
--- NOTE | 2020-03-06 14:16 | NUR ---
DISCHARGE ORDER RECIEVED. NOTIFIED PT AND PT STATES AT THIS TIME FAMILY IS UNABLE TO PICK PT UP D/T "WHEELCHAIR RAMP BEING BUILT NOW SO I CAN GET IN HOUSE". PT AND FAMILY AWARE PT IS D/C'D AND WILL GO HOME TOMORROW. DR CUETO AWARE AND STATED PT CAN STAY TONIGHT BUT IS D/C'D IN AM. NOTIFIED RITA, CASE MGMT.EDUCATION PROVIDED REINFORCING [facility] WILL BE THERE TO HELP PT AND THEY WILL BE PROVIDING PHYSICAL THERAPY SERVICES.
[2020-03-06 16:00] VITALS: BP 108/57
--- NOTE | 2020-03-06 16:31 | NUR ---
Faxed discharge instructions and summary to [facility]
--- NOTE | 2020-03-06 16:38 | NUR ---
OCCUPATIONAL THERAPY CO-SIGN I approve of the Occupational Therapy notes written above. ALLY NEGRO, OTR/L
--- NOTE | 2020-03-06 19:00 | NUR ---
ASSUMED CARE FOR THIS PT AT THIS TIME. PT SITTING ON BEDSIDE COMMODE ATTEMPTING TO HAVE A BM. PT STATES SHE CAN'T AND HER ABD HURTS. F/C PATENT FOR DARK YELLOW URINE. MULTIPLE ECCHYMOTIC AREAS NOTED. ARIADNA BOOT TO RLE INTACT AND JERONIMO WRAP TO LLE INTACT. PT ASSISTED BACK TO BED. BED ALARM ON AND CALL LIGHT IN REACH.
[2020-03-06 20:00] VITALS: BP 119/64
--- NOTE | 2020-03-06 20:21 | NUR ---
PT C/O CONSTIPATION AND LACTULOSE INEFFECTIVE. PT MEDICATED W/DULCOLAX PO. PT WANTING A FLEETS ENEMA. PT ENCOURAGED TO TRY DULCOLAX FIRST. WILL MONITOR FOR EFFECTIVENESS. BED ALARM ON AND CALL LIGHT IN REACH.
--- NOTE | 2020-03-06 21:00 | NUR ---
PT ASSISTED TO BSC TO TRY AND HAVE A BM. PT DID NOT HAVE A BM. ASSISTED BACK TO BED.
--- NOTE | 2020-03-06 23:00 | NUR ---
PT ASSISTED TO BSC TO HAVE A BM. PT DID NOT HAVE A BM. ASSISTED BACK TO BED.
[2020-03-07] VITALS: BP 96/48
--- NOTE | 2020-03-07 00:37 | NUR ---
PT USING BEDPAN ATTEMPTING TO HAVE A BM. PT ENCOURAGED TO GET UP AND USE BSC. PT REFUSING AT PRESENT TIME.
--- NOTE | 2020-03-07 01:00 | NUR ---
PT ASSISTED TO BSC TO HAVE A BM. PT UNABLE TO AT THIS TIME. PT ASSISTED BACK TO BED. PT TEARFUL.
--- NOTE | 2020-03-07 01:27 | NUR ---
PT CALLED THIS NURSE INTO THE ROOM TO CHECK HER BS. BGM 118. PT TEACHING GIVEN ON THIS IS A NORMAL BS. PT WANTING THIS NURSE TO CALL HER TO COME PICK HER UP. PT ADVISED THAT IT IS 1AM AND SHE IS BEING D/C IN THE MORNING. PT MEDICATED W/TRAZADONE TO PROMOTE SLEEP, NORCO FOR C/O ABD PAIN, AND DULCOLAX SUPPOSITORY FOR C/O CONSTIPATION. PT TEACHING GIVEN ON S/E OF NARCOTICS IS CONSTIPATION. PT STATES "I KNOW". LIGHTS TURNED OFF IN ROOM. PT ENCOURAGED TO REST. PT ADVISED THIS NURSE WILL BE REMOVING F/C IN THE AM. BED ALARM ON W/CALL LIGHT IN REACH.
--- NOTE | 2020-03-07 02:27 | NUR ---
PT RESTING QUIETLY IN BED AT PRESENT TIME. NO S/S OF DISTRESS NOTED.
--- NOTE | 2020-03-07 02:44 | NUR ---
DR. JIMENEZ NOTIFIED PT REQUESTING TO GO TO ER D/T CONSTIPATION. ALL MEDS GIVEN REVIEWED W/DR. SWANSON TO ORDER MAG CITRATE.
--- NOTE | 2020-03-07 04:06 | NUR ---
PT RESTING QUIETLY IN BED AT THIS TIME.
--- NOTE | 2020-03-07 06:00 | NUR ---
PT PLACED ON BEDPAN PER REQUEST TO ATTEMPT TO HAVE A BM. PT DID NOT HAVE A BM.
--- NOTE | 2020-03-07 06:21 | NUR ---
F/C REMOVED AT THIS TIME. PT TOLERATED WELL. PT DRANK HALF OF MAG CITRATE. PT STATES SHE CAN NOT DRINK ANYMORE. PT ENCOURAGED TO DRINK ALL OF IT IN ORDER TO HAVE A BM. PT BECAME TEARFUL. BED ALARM ON W/CALL LIGHT IN REACH.
[2020-03-07 08:00] VITALS: BP 95/50
--- NOTE | 2020-03-07 08:20 | NUR ---
PT RESTING IN BED. NO DISTRESS NOTED. WILL MONITOR
--- NOTE | 2020-03-07 09:00 | NUR ---
CM in to see patient. She states she is not able to take care of herself at home right now and she states her is not going to be able to care for her. She is tearful. Discussed short term rehab and she is agreeable. When provided with a list of facilities she chose [facility]. exercise planner notified.
--- NOTE | 2020-03-07 09:53 | NUR ---
Patient requesting a referral to [facility]. Contacted [facility] and faxed referral. Waiting on review/acceptance.
--- NOTE | 2020-03-07 10:40 | NUR ---
Discussed discharge planning with Dr. Foreman. Awaiting acceptance and COVID results for [facility].
--- NOTE | 2020-03-07 11:40 | NUR ---
DR VALLES CALLED AND NOTIFIED OF PT BP NEW ORDERS GIVEN
--- NOTE | 2020-03-07 11:55 | NUR ---
PT REFUSED ALL WOUND DRESSINGS TO BE CHANGED PT CRYING " LEAVE ME ALONE "
[2020-03-07 11:59] VITALS: BP 90/66
--- NOTE | 2020-03-07 12:25 | NUR ---
Patient has been accepted to [facility] and can go when Covid-19 test results come back; must be negative.
--- NOTE | 2020-03-07 13:13 | NUR ---
OT NOTE Pt was laying in bed agreeable to 1:1 15 minute therapy session. Pt was identified by name and date of with complaints of feeling unwell rating all over pain an 8/10. Supine to EOB SBA for safety. Sit-stand with w/w for UB support CGA for safety. Challenged dynamic balance by reaching in all planes and weight shifts at good-. Challenged standing tolerance which she was able to tolerate 60 seconds at a time before sitting due to fatigue and pain. Side step up to the bed CGA. EOB to supine SBA for saftey. Pt was left in bed with alarm on and call light in reach. Continue d/c recommended to SNF. Christy SANDERS/ERENDIRA Huerta/Sarah
--- NOTE | 2020-03-07 13:35 | NUR ---
PHYSICAL THERAPY TREATMENT TIME: OUT 1:15 PM 20 MINUTES Patient presented to therapy in supine with head of bed elevated and bed alarm activated. Patient was identified by name and . Patient gives informed consent for treatment. Patient had complaint of nausea and pain in the bilateral feet, LEs and Back. Patient performed supine to sitting on EOB transfer with SBA. Patient was able to sit on EOB with SBA. Patient transferred sit to stand from EOB with CGA verbal cues for pushing off the bed with one hand. Patient stood at Walker for 2 minutes and then side-stepped up to head of bed with CGA-SBA. Patient then transferred from SIT to SUPINE IN BED with MIN A X 1. Patient declined further treatment including gait, due to not feeling well at this time. Patient was left in supine with head of bed elevated, call light within reach and bed alarm activated. Patient has edema in the bilateral feet and LEs. Patient complains of low back pain. Patient was 1:1 with this GROUP HOME WORKER for 16 minutes total. CASA PLASCENCIA GROUP HOME WORKER
--- NOTE | 2020-03-07 15:00 | NUR ---
PT INCONTINENT OF SMALL AMOUNT OF URINE
[2020-03-07 16:00] VITALS: BP 115/56
--- NOTE | 2020-03-07 18:25 | NUR ---
PT BLADDER SCANNED FOR 208CC DR CUETO NOTIFED
--- NOTE | 2020-03-07 19:00 | NUR ---
ASSUMED CARE FOR THIS PT AT THIS TIME. PT AWAKE IN BED. DENIES PAIN AT PRESENT TIME. NO JERONIMO WRAP OR ARIADNA BOOT ON AT THIS TIME. IN REPORT, NURSE STATED PT HAD REFUSED. PT AGREED TO WEAR HEEL PROTECTORS. BED ALARM ON W/CALL LIGHT IN REACH.
[2020-03-07 20:00] VITALS: BP 111/51
--- NOTE | 2020-03-07 21:00 | NUR ---
PT'S BS 188. PT REFUSING INSULIN COVERAGE. PT STATES SHE DID NOT EAT TODAY.
[2020-03-08] VITALS: BP 98/55
[2020-03-08 07:15] LABS: POTASSIUM 4.6 mmol/L (3.5-5.1)
[2020-03-08 07:22] LABS: CREATININE 3.69 mg/dL (0.55-1.02)
[2020-03-08 08:00] VITALS: BP 104/60
--- NOTE | 2020-03-08 08:39 | NUR ---
PT RESTING IN BED. NO DISTRESS NOTED PT VERY TEARFUL WILL MONITOR
--- NOTE | 2020-03-08 09:00 | NUR ---
CM in to see patient. Discussed she has been accepted at [facility], waiting on COVID results. She verbalized an understanding. conference planner/geriatric social worker following.
--- NOTE | 2020-03-08 09:20 | NUR ---
OT NOTE Pt was laying supine with head of bed elevated agreeable to 28 minute therapy session. Pt was identified by name and date of with complaints of dizziness and all over pain of 7/10. Supine to EOB SBA. MaxA to don socks due to decreased ROM. Sit-stand Mable with w/w for UB support. Functional mobility completed to the bathroom with w/w at CGA, transferring on and off the toilet was CGA with use of grab bars. Toilet hygiene MaxA secondary to decreased ROM. Functional mobility from Bathroom to recliner CGA with w/w. Pt completed UB exercises at moderate resistance 2X10 to increase strenght for ADL tasks. Pt was left in recliner with alarm on and call light in reach. Continue d/c recommended to [facility] TOMMY Hernandez/ERENDIRA Huerta/Sarah
--- NOTE | 2020-03-08 10:15 | NUR ---
PHYSICAL THERAPY TREATMENT TIME: 09:17 AM 21 MINUTES TOTAL PRESENTATION: Patient was supine in bed Head of bed elevated Bed alarm on NO IV NO spO2 COMPLAINTS: NAUSEA L FOOT PAIN with WT. bearing Dizziness TRANSFERS: Supine to sitting on EOB - SBA Sitting on EOB - SBA STS from EOB - MIN A X 1 STS from LOW CHAIR - MIN A X 1 Verbal cues for pushing off with hands ASSISTIVE DEVICE: Wh Walker TREATMENT: GAIT - 15' X 1 20' X 1 No LOB and No SOB Patient with moderate dizziness CONCLUSION: Patient left in supine in bed with head of bed elevated Bed Alarm Activated Call light within reach ALMA ROSA PLASCENCIA PTA
[2020-03-08 12:00] VITALS: BP 104/39
--- NOTE | 2020-03-08 12:30 | NUR ---
PT REFUSED WOUND DRESSINGS TODAY
--- NOTE | 2020-03-08 13:10 | NUR ---
FLEETS ENEMA GIVEN REQUESTED BY PT
--- NOTE | 2020-03-08 14:00 | NUR ---
LUCIETS ENEMA EFFECTIVE. WILL MONITOR
[2020-03-08 16:00] VITALS: BP 120/55
--- NOTE | 2020-03-08 19:50 | NUR ---
PATIENT ASSESSMENT COMPLETED WITHOUT INCIDENT AT THIS TIME. PATIENT DENIES CHEST PAIN OR SHORTNESS OF BREATH AT THIS TIME. PATIENT REQUESTING A SLEEPING PILL WITH HER EVENING MEDICATIONS AND A STOOL SOFTENER WITH HER AM MEDICATIONS. A&O X4 AT THIS TIME. CALL LIGHT AND TELEPHONE WITHIN REACH, WILL CONTINUE TO MONITOR.
[2020-03-08 20:00] VITALS: BP 100/53
--- NOTE | 2020-03-08 21:14 | NUR ---
PRN TRAZADONE GIVEN AT THIS TIME AT PATIENT REQUEST FOR SLEEP. A&O X3, CALL LIGHT WITHIN REACH, WILL CONTINUE TO MONITOR.
--- NOTE | 2020-03-08 22:00 | NUR ---
PATIENT RESTING IN BED IN A POSITION OF COMFORT WITH EYES CLOSED AT THIS TIME. NO SIGNS OR SYMPTOMS OF DISTRESS NOTED, RESPIRATIONS EASY AND NON-LABORED AT THIS TIME. CALL LIGHT WITHIN REACH, WILL CONTINUE TO MONITOR.
--- NOTE | 2020-03-08 22:50 | NUR ---
24 HOUR CHART CHECK COMPLETE
[2020-03-09] VITALS: BP 91/52
--- NOTE | 2020-03-09 04:30 | NUR ---
PATIENT RESTING IN BED IN A POSITION OF COMFORT AT THIS TIME, DENIES ANY PAIN OR DISCOMFORT AT THIS TIME. A&O X3, CALL LIGHT WITHIN REACH, WILL CONTINUE TO MONITOR.
--- NOTE | 2020-03-09 07:30 | NUR ---
TOOK OVER CARE OF PT AT THIS TIME. PT RESTING IN BED. NO S/S OF DISTRESS NOTED. RESPIRATIONS EASY AND UNLABORED ON ROOM AIR. ALL NEEDS ARE MET AT THIS TIME. NO COMPLAINTS VOICED. WILL CONTINUE TO MONITOR. CALL LIGHT IN REACH.
[2020-03-09 07:31] LABS: CREATININE 3.64 mg/dL (0.55-1.02); POTASSIUM 4.8 mmol/L (3.5-5.1)
--- NOTE | 2020-03-09 07:38 | NUR ---
Notified Dr. Foreman patient can be discharged to [facility] when medically stable. Dr. Hurt will be rounding later today. Plan is to discharge.
--- NOTE | 2020-03-09 07:43 | NUR ---
PATIENTS COVID IS RETURNED. PATIENT CAN ADMIT TO [facility] TODAY IF MEDICALLY STABLE. ARTIFICIAL LEATHER CALENDER OPERATOR IS AWARE.
[2020-03-09 09:20] VITALS: BP 92/54
--- NOTE | 2020-03-09 09:30 | NUR ---
CM in to see patient. Discussed her discharge to [facility] today. Asked patient about [facility] coming out to fix her wheelchair at home. She states her is home and waiting on them. She states her can provide transportation to [facility].
[2020-03-09 12:00] VITALS: BP 100/56
--- NOTE | 2020-03-09 12:00 | NUR ---
PT SITTING UP IN CHAIR AT BEDSIDE. RESPIRATIONS UNLABORED. PT EATING LUNCH. COVERAGE GIVEN FOR BLOOD GLUCOSE OF 239. ALL OTHER NEEDS MET. SAFETY MEASURES IN PLACE. CALL LIGHT IN REACH.
--- NOTE | 2020-03-09 13:36 | NUR ---
CALLED AND WANTED A ARLEY BP DONE. OBTAINED BP IN RT ARM 110/58. NOTIFIED.
--- NOTE | 2020-03-09 14:24 | NUR ---
Pt was sitting up in recliner finishing lunch. Agreeable to 10 minute OT session. Pt was identified by name and date of with no complaints to date. MaxA to ulices socks due to decreasd ROM and edema. Sit-stand with w/w Mable due to low level of recliner. Functional mobility from recliner to bathroom with w/w CGA for safety. Transferring on and off toilet with w/w SBA. Hygiene SBA. Pt was able to stand unsupported to brush hair and wash hands at SBA. Functioanl mobility from bathroom back to recliner CGA. Pt was left in recliner with alarm and call light in reach. Continue d/c recommended to SNF. TOMMY Hernandez/ERENDIRA Huerta/Sarah
--- NOTE | 2020-03-09 14:36 | NUR ---
PHYSICAL THERAPY TREATMENT TIME: OUT 13:10 PM 20 MINUTES PRESENTATION: Patient was sitting in bedside chair upon this SALES PROMOTION REPRESENTATIVE arriving in patient's room. Chair alarm attached to patient COMPLAINTS: Patient has no significant concerns. TRANSFERS: STS FROM BEDSIDE CHAIR - CGA X 1 TREATMENT: Patient ambulated Wh Walker and CGA for 20' X 2. Patient STS from commode with CGA X 1 Patient had no LOB or SOB Patient declined to do any further therapy today. COMPLAINTS POST TREATMENT: NONE CONCLUSION: Patient transferred back to supine in bed with CGA. VERBAL CUES for putting hands back on armrests of chair Patient was left in sitting in bedside chair with Chair alarm tested and attached to patient. CASA PLASCENCIA SALES PROMOTION REPRESENTATIVE
--- NOTE | 2020-03-09 15:33 | NUR ---
OCCUPATIONAL THERAPY CO-SIGN I approve of the Occupational Therapy notes written above. ALLY NEGRO, OTR/L
--- NOTE | 2020-03-09 15:53 | NUR ---
ACID LOADER NOTIFIED OF PATIENT DISCHARGE. PATIENTS FAMILY IS TO TRANSPORT TO [facility]. ACID LOADER NOTIFIED [facility] AND WILL FAX DISCHARGE ORDERS.
--- NOTE | 2020-03-09 16:30 | NUR ---
DISCHARGE REVIEWED WITH PATIENT. PT STATES THAT HER WILL TRANSPORT HER VIA THEIR CAR AND PT INSTRUCTED TO ENSURE THAT [facility] NURSE OBTAINS WHITE ENVELOPE WITH ALL MEDICAL INFORMATION IN IT.
--- NOTE | 2020-03-09 16:30 | NUR ---
REPORT CALLED TO MEGHNA COLINDRES AT [facility].
--- NOTE | 2020-03-09 17:00 | NUR ---
Hep Lock discontinued. Site asymptomatic. Pressure applied. Sterile dressing applied. XIN MCDANIELS
--- NOTE | 2020-03-09 17:00 | NUR ---
Patient discharged to SNF via wheelchair TO HUSBANDS CAR, TO TRANSPORT PT TO [facility]. Discharge criteria met. History and physical and discharge summary present. Nursing discharge summary complete. Physician orders included with physician dischage summary. Report given to MEGHNA COLINDRES AT [facility]. XIN MCDANIELS
--- NOTE | 2020-03-10 08:51 | NUR ---
PHYSICAL THERAPY CO-SIGN I approve of the Physical Therapy notes written above. RITA MCKENZIE, PT, DPT
== END 2020-03-09 17:47 | disposition other institution (70) | DRG 602 ==
LOC: ED 11:29 → EDHOLD 13:23 → 5E 13:23
PROVIDERS: Internal Medicine; Internal Medicine Nephrology; Nurse Practitioner Family; ADMIT Internal Medicine; ATTEND Internal Medicine
DX: L03.119 Cellulitis of unspecified part of limb (principal); N17.0 Acute kidney failure with tubular necrosis; E87.1 Hypo-osmolality and hyponatremia; E44.1 Mild protein-calorie malnutrition; I44.2 Atrioventricular block, complete; N18.4 Chronic kidney disease, stage 4 (severe); I13.0 Hypertensive heart and chronic kidney disease with heart failure and stage 1 through stage 4 chronic kidney disease, or unspecified chronic kidney disease; W19.XXXA Unspecified fall, initial encounter; K59.00 Constipation, unspecified; I48.91 Unspecified atrial fibrillation; H54.61 Unqualified visual loss, right eye, normal vision left eye; I25.10 Atherosclerotic heart disease of native coronary artery without angina pectoris; I50.9 Heart failure, unspecified; F41.1 Generalized anxiety disorder; K21.9 Gastro-esophageal reflux disease without esophagitis; E78.00 Pure hypercholesterolemia, unspecified; E03.9 Hypothyroidism, unspecified; E11.51 Type 2 diabetes mellitus with diabetic peripheral angiopathy without gangrene; E11.69 Type 2 diabetes mellitus with other specified complication; I87.2 Venous insufficiency (chronic) (peripheral); G31.9 Degenerative disease of nervous system, unspecified; I87.8 Other specified disorders of veins; K52.839 Microscopic colitis, unspecified; M50.30 Other cervical disc degeneration, unspecified cervical region; E83.41 Hypermagnesemia; I27.20 Pulmonary hypertension, unspecified; D63.1 Anemia in chronic kidney disease; E11.22 Type 2 diabetes mellitus with diabetic chronic kidney disease; E87.5 Hyperkalemia; E11.65 Type 2 diabetes mellitus with hyperglycemia; E83.9 Disorder of mineral metabolism, unspecified; Z20.828 Contact with and (suspected) exposure to other viral communicable diseases; Z88.8 Allergy status to other drugs, medicaments and biological substances; Z91.041 Radiographic dye allergy status; Z82.49 Family history of ischemic heart disease and other diseases of the circulatory system; Z83.3 Family history of diabetes mellitus; I25.2 Old myocardial infarction; Z95.0 Presence of cardiac pacemaker; Z98.42 Cataract extraction status, left eye; Z95.5 Presence of coronary angioplasty implant and graft; Z68.38 Body mass index [BMI] 38.0-38.9, adult; W18.39XA Other fall on same level, initial encounter; Y93.89 Activity, other specified; Y92.89 Other specified places as the place of occurrence of the external cause; Y99.8 Other external cause status

== ENCOUNTER 2020-03-28 05:26 | Emergency (ER) | payer MEDICARE ==
[~2020-03-28] VITALS: Ht 167.6 cm; Wt 126.3 kg
[~2020-03-28 05:26] MED LIST changes: +ALDACTONE25 MG PO; +Lopressor25 MG PO; +POTASSIUM CHLO20 ME4 PO; +RENVELA800 MG PO; +TORSEMIDE100 MG PO
[2020-03-28 06:41] LABS: BASO % 0.3 % (0.0-1.0); HEMATOCRIT 35.5 % (37.0-47.0); LYMPH # 0.4 10*3/uL (1.3-4.4); LYMPH % 5.9 % (27.0-41.0); MEAN CELL VOLUME 95.7 fl (81.0-99.0); MEAN CORPUSCULAR HGB 29.4 pg (27.0-31.0); MEAN CORPUSCULAR HGB CONC 30.7 g/dl (33.0-37.0); MEAN PLATELET VOLUME 10.2 fl (9.6-12.3); MONO # 0.3 10*3/uL (0.1-1.0); MONO % 4.8 % (3.0-9.0); NEUT # 5.5 10*3/uL (2.3-7.9); NEUT % 88.4 % (47.0-73.0); PLATELET COUNT AUTOMATED 200 10*3/uL (130-400); RED BLOOD COUNT 3.71 10*6/uL (4.10-5.10); RED CELL DISTRI WIDTH 18.7 % (0-14.5); WHITE BLOOD COUNT 6.3 10*3/uL (4.8-10.8)
[2020-03-28 06:58] LABS: ALBUMIN 3.2 gm/dl (3.1-4.5); CREATININE 2.67 mg/dL (0.55-1.02); POTASSIUM 4.1 mmol/L (3.5-5.1); TOTAL PROTEIN 6.9 gm/dL (6.4-8.2)
[2020-03-28 07:30] VITALS: BP 110/58
== END 2020-03-28 08:11 | disposition home or self-care (01) ==
LOC: ED 05:26
PROVIDERS: Emergency Medicine
DX: S10.93XA Contusion of unspecified part of neck, initial encounter (principal); E16.2 Hypoglycemia, unspecified; Z91.041 Radiographic dye allergy status; Z88.8 Allergy status to other drugs, medicaments and biological substances; Z79.899 Other long term (current) drug therapy; Z79.82 Long term (current) use of aspirin; W06.XXXA Fall from bed, initial encounter; Y93.89 Activity, other specified; Y92.89 Other specified places as the place of occurrence of the external cause; Y99.8 Other external cause status

== ENCOUNTER 2020-04-10 17:02 | Inpatient (IN) | payer MEDICARE ==
[~2020-04-10] VITALS: Ht 167.6 cm; Wt 120.4 kg
[2020-04-10 17:11] VITALS: BP 110/45
[2020-04-10 17:47] LABS: BASO % 0.6 % (0.0-1.0); EOS # 0.1 10*3/uL (0.0-0.4); EOS % 2.5 % (1.0-4.0); HEMATOCRIT 33.3 % (37.0-47.0); LYMPH # 1.1 10*3/uL (1.3-4.4); LYMPH % 22.9 % (27.0-41.0); MEAN CELL VOLUME 92.8 fl (81.0-99.0); MEAN CORPUSCULAR HGB 29.8 pg (27.0-31.0); MEAN CORPUSCULAR HGB CONC 32.1 g/dl (33.0-37.0); MEAN PLATELET VOLUME 9.6 fl (9.6-12.3); MONO # 0.6 10*3/uL (0.1-1.0); MONO % 12.2 % (3.0-9.0); NEUT # 2.9 10*3/uL (2.3-7.9); NEUT % 61.4 % (47.0-73.0); PLATELET COUNT AUTOMATED 170 10*3/uL (130-400); RED BLOOD COUNT 3.59 10*6/uL (4.10-5.10); RED CELL DISTRI WIDTH 17.4 % (0-14.5); WHITE BLOOD COUNT 4.8 10*3/uL (4.8-10.8)
[2020-04-10 18:01] LABS: ALBUMIN 3.3 gm/dl (3.1-4.5); CREATININE 2.73 mg/dL (0.55-1.02); TOTAL PROTEIN 7.1 gm/dL (6.4-8.2)
[2020-04-10 18:37] LABS: CLARITY Clear (Clear); COLOR Yellow (Yellow)
[2020-04-10 18:38] LABS: BILIRUBIN Negative; BLOOD Trace-Intact (Negative); GLUCOSE Negative; KETONE Negative; LEUKO ESTERASE 2+ (Negative); NITRITE Negative (Negative); SPECIFIC GRAVITY < 1.005 (1.001-1.030); UROBILINOGEN 0.2 E.U./dl (0.0-1.0)
[2020-04-10 18:41] LABS: BACTERIA TRACE
[2020-04-10 19:29] VITALS: BP 112/46
[2020-04-10 19:40] VITALS: BP 134/50
--- NOTE | 2020-04-10 19:40 | NUR ---
A 70, admitted to 5E, under the services of PILAR Beasley MD with a diagnosis of CELLULITIS LEG. Chief complaint is 2 BLISTERS TO LEFT GREAT TOE. Patient arrived via wheel chair from ER. Monitor applied. Initial assessment completed. Vital signs taken and recorded. PILAR BEASLEY MD notified of admission to the unit. Orders received. See assessment for past medical history, medications and allergies. Patient and/or family oriented to unit. visitation policy reviewed. Clothing/patient valuable form completed. LUIS F ELY
[2020-04-10 20:00] VITALS: BP 134/50
[2020-04-10] MEDS ORDERED: COLACE100 MG PO (20:03)
[2020-04-10] MEDS ORDERED: HUMALOG100 UNIT/2 SQ (22:11)
--- NOTE | 2020-04-10 23:39 | NUR ---
DR. ARROYO WAS NOTIFIED OF CONSULT FOR CKD AND PODIATRY RESIDENT WAS NOTIFIED OF CONSULT FOR DR. DIXON FOR LEFT FOOT 3RD AND 4TH FRACTURES.
[2020-04-11] VITALS: BP 96/79
[2020-04-11 06:32] LABS: BASO % 0.6 % (0.0-1.0); EOS # 0.2 10*3/uL (0.0-0.4); EOS % 3.2 % (1.0-4.0); HEMATOCRIT 31.2 % (37.0-47.0); LYMPH # 1.1 10*3/uL (1.3-4.4); LYMPH % 22.3 % (27.0-41.0); MEAN CORPUSCULAR HGB 29.5 pg (27.0-31.0); MEAN CORPUSCULAR HGB CONC 31.4 g/dl (33.0-37.0); MEAN PLATELET VOLUME 10.3 fl (9.6-12.3); MONO # 0.7 10*3/uL (0.1-1.0); MONO % 13.5 % (3.0-9.0); PLATELET COUNT AUTOMATED 165 10*3/uL (130-400); RED BLOOD COUNT 3.32 10*6/uL (4.10-5.10); RED CELL DISTRI WIDTH 17.5 % (0-14.5)
[2020-04-11 06:57] LABS: POTASSIUM 4.3 mmol/L (3.5-5.1)
[2020-04-11 07:07] LABS: CREATININE 2.81 mg/dL (0.55-1.02); THYROID STIM HORMONE (HS) 25.6 uIU/ml (0.358-4.75); TOTAL PROTEIN 6.3 gm/dL (6.4-8.2)
--- NOTE | 2020-04-11 07:42 | NUR ---
spoke with Dr. Foreman regarding wound care recommendations he states to leave it up to podiatry since they are on the case.
[2020-04-11 08:00] VITALS: BP 114/40
--- NOTE | 2020-04-11 08:30 | NUR ---
CM in to see patient. She is currently not in her room. Will follow up at a later time.
--- NOTE | 2020-04-11 11:30 | NUR ---
Nurse Special in to talk to patient. Patient states lives at home with her . There are 0 steps in the home. Physician: [facility] Patient's level of ADLs: MINIMAL ASSIST Patient has working utilities: yes DME: walker, wheelchair, shower chair Follow-up physician's appointment after d/c: she prefers to make her own follow up appt after discharge Does patient want to access PORTAL?: no Discharge plan discussed with patient. She lives at home with her . She needs minimal assistance in her ADLs and ambulates with a walker or gets around in a wheelchair. She states she is using her old wheelchair because [facility] has not brought back her other bariatric wheelchair. Explained CM will reach out to [facility]. Discussed short term rehab and she declines. She states when she was just at [facility] they only were able to walk her in her room due to quarantine. Discussed home health care services and she states she currently has [email or web address] and would like to resume their services upon discharge. She has a nurse and therapy. When medically stable she will be discharged to home with the [facility]. She states her will provide transportation on discharge. RITA PRICE
--- NOTE | 2020-04-11 11:50 | NUR ---
Message left for Mary Pichardo at [facility] regarding home wheelchair. Awaiting return call.
[2020-04-11 12:00] VITALS: BP 102/48
--- NOTE | 2020-04-11 12:20 | NUR ---
Received call back from Mary Pichardo at [facility]. She states the light truck driver doesn't come in until so she is not sure whether the wheelchair was taken to be worked on. She states they are awaiting parts. Notified patient.
[2020-04-11 16:00] VITALS: BP 110/63
--- NOTE | 2020-04-11 17:39 | NUR ---
DR ARROYO CALLED AND NOTIFIED OF CONSULT
[2020-04-11 20:00] VITALS: BP 91/48
[2020-04-12] VITALS: BP 110/90
--- NOTE | 2020-04-12 01:19 | NUR ---
PATIENT RESTING IN BED WITH EYES CLOSED. RESPIRATIONS REGULAR AND NON-LABORED. NO SIGNS OR SYMPTOMS OF DISTRESS NOTED. WILL CONTINUE TO MONITOR. CALL LIGHT IN REACH.
[2020-04-12 06:34] LABS: BASO % 0.7 % (0.0-1.0); EOS # 0.2 10*3/uL (0.0-0.4); EOS % 3.5 % (1.0-4.0); HEMATOCRIT 32.1 % (37.0-47.0); LYMPH # 1.3 10*3/uL (1.3-4.4); LYMPH % 24.3 % (27.0-41.0); MEAN CELL VOLUME 94.7 fl (81.0-99.0); MEAN CORPUSCULAR HGB 29.8 pg (27.0-31.0); MEAN CORPUSCULAR HGB CONC 31.5 g/dl (33.0-37.0); MEAN PLATELET VOLUME 10.6 fl (9.6-12.3); MONO # 0.8 10*3/uL (0.1-1.0); MONO % 14.4 % (3.0-9.0); NEUT # 3.1 10*3/uL (2.3-7.9); NEUT % 56.7 % (47.0-73.0); PLATELET COUNT AUTOMATED 156 10*3/uL (130-400); RED BLOOD COUNT 3.39 10*6/uL (4.10-5.10); RED CELL DISTRI WIDTH 17.4 % (0-14.5); WHITE BLOOD COUNT 5.4 10*3/uL (4.8-10.8)
[2020-04-12 06:48] LABS: CREATININE 3.07 mg/dL (0.55-1.02); POTASSIUM 4.8 mmol/L (3.5-5.1)
[2020-04-12 08:00] VITALS: BP 135/82
--- NOTE | 2020-04-12 08:30 | NUR ---
CM in to see patient. She is sitting on the edge of her bed. Discussed [facility] stated they are waiting on parts for her wheelchair. She verbalized an understanding but is wondering why it has taken 7 weeks for the parts to come in. When medically stable she will be discharged to home with the resumption of her [facility].
--- NOTE | 2020-04-12 09:30 | NUR ---
CONSENT OBTAINED PER ORDER FOR INCISION AND DRAINAGE OF LEFT GREAT TOE.
[2020-04-12 12:00] VITALS: BP 102/58
--- NOTE | 2020-04-12 13:00 | NUR ---
INCISION AND DRAINAGE PERFORMED AT THE BEDSIDE BY . CONSENT OBTAINED. PRE & POST DEBRIDEMENT PHOTOS OBTAINED BY RN. PT TOLERATED WELL.
--- NOTE | 2020-04-12 14:37 | NUR ---
IN TO SEE PATIENT.
--- NOTE | 2020-04-12 15:56 | NUR ---
IN TO SEE PATIENT.
[2020-04-12 16:21] VITALS: BP 96/54
[2020-04-12 19:46] LABS: URINE CREATININE RANDOM 33.8 mg/dL
[2020-04-12 20:00] VITALS: BP 105/56
--- NOTE | 2020-04-12 20:35 | NUR ---
PT SEEN AND ASSESSED. PT STATES SHE IS HAVING GENERALIZED PAIN AT THIS TIME AND RATES HER PAIN 8/10. PT GIVEN SCHEDULED PAIN MEDCATION PER THE PT REQUEST.
--- NOTE | 2020-04-12 21:35 | NUR ---
PT REPORTS PAIN IS TOLERABLE AND RATES PAIN 3/10.
[2020-04-13] VITALS: BP 97/48
--- NOTE | 2020-04-13 00:57 | NUR ---
24 HR chart check completed.
--- NOTE | 2020-04-13 01:13 | NUR ---
PT IV FLUIDS HAVE COMPLETED. PT DISCONNECTED AND MADE INT
--- NOTE | 2020-04-13 02:25 | NUR ---
24 HR chart check completed.
--- NOTE | 2020-04-13 03:51 | NUR ---
PT IV SYMPTOMATIC TO LAC SITE. NEW IV ACCESS OBTAINED.
[2020-04-13 08:00] VITALS: BP 111/84
--- NOTE | 2020-04-13 08:48 | NUR ---
SPEECH PATHOLOGY Modified barium swallow completed as per orders. This was ordered due to c/o dysphagia characterized by a feeling of globus, especially with breads. Patient stated that it is cleared after taking a drink. She reported that this has been occurring since her fall at home. Further history includes cellulitis, CAD, COPD, GERD, IDDM, renal failure. Patient was assessed with puree, solids and thin liquid. Results revealed a mild oropharyngeal dysphagia characterized by slow mastication (most likely d/t several missing back teeth), decreased tongue to posterior pharyngeal wall contact with pooling in valleculae and transient penetration with thin liquid. Patient was able to clear residue with liquid wash. Recommend she remain on present diet, with use of safe swallow precautions such as alternating liquid and solid- to clear residue and small sips of liquid- to reduce risk for penetration/aspiration. Follow up therapy is recommended through length of stay focusing on pharyngeal strengthening exercises, use of strategies and education. Results and sarah. were shared with patient who verbalized understanding. Patient's nurse will also be infored. Dictated report to follow. Thank you for this referral. SEMAJ VACA MSCCC-TRANSPORTATION ASSOCIATE
--- NOTE | 2020-04-13 09:00 | NUR ---
PATIENT RETURNED TO ROOM FROM SCHEDULED MBS.
--- NOTE | 2020-04-13 09:10 | NUR ---
Discussed discharge planning with Dr. Foreman. Patient is a potential discharge today. Awaiting Dr. Foreman to round.
[2020-04-13 10:18] LABS: BASO # 0.1 10*3/uL (0.0-0.1); BASO % 1.1 % (0.0-1.0); EOS # 0.2 10*3/uL (0.0-0.4); EOS % 3.2 % (1.0-4.0); HEMATOCRIT 33.4 % (37.0-47.0); LYMPH # 1.2 10*3/uL (1.3-4.4); LYMPH % 18.6 % (27.0-41.0); MEAN CELL VOLUME 94.1 fl (81.0-99.0); MEAN CORPUSCULAR HGB 29.3 pg (27.0-31.0); MEAN CORPUSCULAR HGB CONC 31.1 g/dl (33.0-37.0); MEAN PLATELET VOLUME 9.9 fl (9.6-12.3); MONO # 0.8 10*3/uL (0.1-1.0); MONO % 12.8 % (3.0-9.0); NEUT # 4.1 10*3/uL (2.3-7.9); NEUT % 63.8 % (47.0-73.0); PLATELET COUNT AUTOMATED 152 10*3/uL (130-400); RED BLOOD COUNT 3.55 10*6/uL (4.10-5.10); RED CELL DISTRI WIDTH 17.4 % (0-14.5); WHITE BLOOD COUNT 6.3 10*3/uL (4.8-10.8)
--- NOTE | 2020-04-13 10:35 | NUR ---
Nutritional Support Services Note: Pt is eating 100% of all meals. She receives an 1800cal diabetic diet as ordered. Cellullitis noted. Encouraged conitnued good intake of meals and healthy eating. Will follow as needed. No other nutrition intervention needed at this time. Charo Nair Rdn Ld
[2020-04-13 10:36] LABS: ALBUMIN 3.1 gm/dl (3.1-4.5); CREATININE 3.1 mg/dL (0.55-1.02); POTASSIUM 4.5 mmol/L (3.5-5.1); TOTAL PROTEIN 6.5 gm/dL (6.4-8.2)
[2020-04-13 12:00] VITALS: BP 118/74
--- NOTE | 2020-04-13 14:16 | NUR ---
Received call from Dr. Foreman. Patient to be made inpatient due to worsening kidney functions and IV antibiotics. New order placed.
[2020-04-13 16:00] VITALS: BP 108/62
--- NOTE | 2020-04-13 16:12 | NUR ---
PT MEDICATED WITH IV ZOFRAN PER PRN ORDER FOR C/O NAUSEA. WILL MONITOR EFFECTIVENESS.
--- NOTE | 2020-04-13 17:12 | NUR ---
IV ZOFRAN RELIEVING NAUSEA PER PT. WILL CONTINUE TO MONITOR.
--- NOTE | 2020-04-13 19:50 | NUR ---
PT SEEN AND ASSESSED. PT VERBALIZESNO NEW C/O AT THIS TIME. PT STATES SHE IS COMFORTABLE AND CURRENTLY RATES HER PAIN 3/10
[2020-04-13 20:00] VITALS: BP 100/65
--- NOTE | 2020-04-13 21:17 | NUR ---
PT GIVEN SCHEDULED PAIN MEDICATION. PT STATES SHE HAS GENERALIZED PAIN 10/21. WILL REASSESS.
--- NOTE | 2020-04-13 22:41 | NUR ---
VANCO TROUGH 17.9 LAB WNL. ANTIBIOTIC ADMINISTERED ORDERED.
[2020-04-14] VITALS: BP 110/60
--- NOTE | 2020-04-14 01:56 | NUR ---
24 HR chart check completed.
[2020-04-14 08:00] VITALS: BP 110/61
--- NOTE | 2020-04-14 08:30 | NUR ---
CM in to see patient. She is sitting on the edge of her bed. No new needs or request at this time. When medically stable she will be discharged to home with the resumption of her [facility].
--- NOTE | 2020-04-14 08:48 | NUR ---
SPEECH PATHOLOGY Patient was seen for treatment this am. Patient was alert and cooperative, sitting in bedside chair. Clinician reviewed results and recommendations from yesterday's MBS. Patient was able to recall the recommendations and stated that she has been implementing strategy of small sips of liquid. Patient was educated on pharyngeal strengthening exercises and these were modeled and performed by the patient. Patient stated that she is scheduled to be discharged to home today. Patient was encouraged to perform the exercises independently at home and continue with safe swallow precautions. As patient is to be discharged to home, recommend discharge of services at this time. Thank you for this referral. SEMAJ VACA MSCCC-NURSE EXAMINER
--- NOTE | 2020-04-14 11:30 | NUR ---
PODIATRY IN TO SEE PATIENT & CHANGE LLE DRESSINGS.
[2020-04-14 12:00] VITALS: BP 133/52
--- NOTE | 2020-04-14 15:46 | NUR ---
PATIENT SITTING UP IN RECLINER - NO NEEDS AT THIS TIME. CALL LIGHT IS WITHIN REACH.
[2020-04-14] MEDS ORDERED: DOXYCYCLINE100 M3 PO (15:56)
[2020-04-14] MEDS ORDERED: SYNTHROID,LEVO75 MCG PO (15:56)
[2020-04-14 16:36] VITALS: BP 122/66
[2020-04-14 16:51] LABS: CREATININE 3.36 mg/dL (0.55-1.02); POTASSIUM 4.9 mmol/L (3.5-5.1)
--- NOTE | 2020-04-14 16:55 | NUR ---
PATIENT REFUSING DISCHARGE PHOTOS ON LEFT FOOT DUE TO DRESSING JUST CHANGED.
--- NOTE | 2020-04-14 17:16 | NUR ---
Discharge instructions reviewed with patient/family. Patient receptive and verbalizes understanding. Follow-up care arranged. Written instructions given to patient/family. EXPLAINED NEW MEDICATIONS. WOUND PHOTOS TAKEN TO RIGHT OBRIEN AND RIGHT GREAT TOE. PT REFUSING LEFT LEG PHOTOS DUE TO DRESSING CHANGED ALREADY. TAKEN OFF FLOOR VIA WHEELCHAIR, PICKED UP BY FAMILY. [facility] WU
--- NOTE | 2020-04-14 17:18 | NUR ---
FRACTURE SHOE GIVEN PRIOR TO [place] FOR PATIENT'S LEFT FOOT, PER ORDER.
--- NOTE | 2020-04-17 07:46 | NUR ---
Faxed home health resumption order to [facility] along with admission and discharge clinical
--- NOTE | 2020-04-24 14:53 | NUR ---
Received call from patient regarding home wheelchair. She has not heard back from [facility]. Reached out to Mary Pichardo at [facility]. She states they are switching her wheelchair out completely as it was under warranty. They did not have the wheelchair in stock so it had to be ordered. It can take 7-10 days. Called patient, no answer, left voicemail.
== END 2020-04-14 17:45 | disposition home health service (06) | DRG 570 ==
LOC: ED 17:02 → EDHOLD 18:57 → 5E 18:57
PROVIDERS: Internal Medicine; Internal Medicine Nephrology; Nurse Practitioner Family; ADMIT Internal Medicine; ATTEND Internal Medicine
PROC: 0JBR0ZZ Excision of Left Foot Subcutaneous Tissue and Fascia, Open Approach (ICD-10-PCS; 2020-04-12)
PROC: BD1BYZZ Fluoroscopy of Mouth/Oropharynx using Other Contrast (ICD-10-PCS; principal; 2020-04-13)
DX: L03.116 Cellulitis of left lower limb (principal); N17.0 Acute kidney failure with tubular necrosis; E44.1 Mild protein-calorie malnutrition; I13.0 Hypertensive heart and chronic kidney disease with heart failure and stage 1 through stage 4 chronic kidney disease, or unspecified chronic kidney disease; L02.612 Cutaneous abscess of left foot; N39.0 Urinary tract infection, site not specified; Z68.41 Body mass index [BMI] 40.0-44.9, adult; N18.4 Chronic kidney disease, stage 4 (severe); L03.115 Cellulitis of right lower limb; K59.00 Constipation, unspecified; D64.9 Anemia, unspecified; E83.41 Hypermagnesemia; K21.9 Gastro-esophageal reflux disease without esophagitis; E03.9 Hypothyroidism, unspecified; E11.22 Type 2 diabetes mellitus with diabetic chronic kidney disease; E11.51 Type 2 diabetes mellitus with diabetic peripheral angiopathy without gangrene; E11.65 Type 2 diabetes mellitus with hyperglycemia; F41.1 Generalized anxiety disorder; R13.10 Dysphagia, unspecified; J44.9 Chronic obstructive pulmonary disease, unspecified; Z80.8 Family history of malignant neoplasm of other organs or systems; I48.91 Unspecified atrial fibrillation; I25.10 Atherosclerotic heart disease of native coronary artery without angina pectoris; S92.332A Displaced fracture of third metatarsal bone, left foot, initial encounter for closed fracture; I50.9 Heart failure, unspecified; B96.20 Unspecified Escherichia coli [E. coli] as the cause of diseases classified elsewhere; E78.00 Pure hypercholesterolemia, unspecified; S92.342A Displaced fracture of fourth metatarsal bone, left foot, initial encounter for closed fracture; S00.93XA Contusion of unspecified part of head, initial encounter; M50.30 Other cervical disc degeneration, unspecified cervical region; S80.812A Abrasion, left lower leg, initial encounter; E11.42 Type 2 diabetes mellitus with diabetic polyneuropathy; S80.811A Abrasion, right lower leg, initial encounter; E11.621 Type 2 diabetes mellitus with foot ulcer; L97.529 Non-pressure chronic ulcer of other part of left foot with unspecified severity; W06.XXXA Fall from bed, initial encounter; Y93.89 Activity, other specified; Y92.89 Other specified places as the place of occurrence of the external cause; Y99.8 Other external cause status; Z95.5 Presence of coronary angioplasty implant and graft; Z79.4 Long term (current) use of insulin; Z95.0 Presence of cardiac pacemaker; I25.2 Old myocardial infarction; Z88.8 Allergy status to other drugs, medicaments and biological substances; Z91.041 Radiographic dye allergy status; Z79.899 Other long term (current) drug therapy; Z79.82 Long term (current) use of aspirin; Z87.440 Personal history of urinary (tract) infections; Z90.49 Acquired absence of other specified parts of digestive tract; Z98.42 Cataract extraction status, left eye; Z83.3 Family history of diabetes mellitus; Z82.49 Family history of ischemic heart disease and other diseases of the circulatory system

== ENCOUNTER 2020-06-19 19:53 | Inpatient (IN) | payer MEDICARE ==
[~2020-06-19] VITALS: Ht 170.1 cm; Wt 111.2 kg
[~2020-06-19 19:53] MED LIST changes: +COLACE100 MG PO; +HUMALOG100 UNIT/2 SQ; +SYNTHROID,LEVO75 MCG PO
[2020-06-19 19:55] VITALS: BP 105/48
[2020-06-19 22:59] LABS: BASO # 0.1 10*3/uL (0.0-0.1); BASO % 0.7 % (0.0-1.0); EOS # 0.1 10*3/uL (0.0-0.4); EOS % 0.7 % (1.0-4.0); HEMATOCRIT 30.4 % (37.0-47.0); LYMPH % 14.5 % (27.0-41.0); MEAN CELL VOLUME 85.6 fl (81.0-99.0); MEAN CORPUSCULAR HGB 26.2 pg (27.0-31.0); MEAN CORPUSCULAR HGB CONC 30.6 g/dl (33.0-37.0); MEAN PLATELET VOLUME 9.9 fl (9.6-12.3); MONO # 1.1 10*3/uL (0.1-1.0); MONO % 15.5 % (3.0-9.0); NEUT # 4.9 10*3/uL (2.3-7.9); NEUT % 68.2 % (47.0-73.0); PLATELET COUNT AUTOMATED 245 10*3/uL (130-400); RED BLOOD COUNT 3.55 10*6/uL (4.10-5.10); RED CELL DISTRI WIDTH 15.4 % (0-14.5); WHITE BLOOD COUNT 7.1 10*3/uL (4.8-10.8)
--- NOTE | 2020-06-19 23:30 | NUR ---
ATTEMPTED TO CALL FLOOR FOR ADMISSION. WILL CALL AGAIN
[2020-06-19 23:47] LABS: ALBUMIN 2.9 gm/dl (3.1-4.5); CREATININE 2.48 mg/dL (0.55-1.02); POTASSIUM 4.5 mmol/L (3.5-5.1); TOTAL PROTEIN 6.9 gm/dL (6.4-8.2)
--- NOTE | 2020-06-20 | NUR ---
PT IS REFUSING APPLICATION OF SLING. PT WILL NOT MOVE HER RIGHT ARM TO HAVE SLING PLACED.
--- NOTE | 2020-06-20 00:30 | NUR ---
PT SP02 IS BETWEEN 88-91% ON ROOM AIR. PT IS REFUSING PLACEMENT OF A NASAL CANNULA. PT STATES "I HATE OXYGEN AND CAN GET IT UP ON MY OWN". PT EDUCATED ON THE RISKS OF HYPOXIA.
[2020-06-20 00:43] VITALS: BP 110/52
[2020-06-20 01:00] VITALS: BP 114/52
--- NOTE | 2020-06-20 01:00 | NUR ---
Time: 99 A 70 year old F admitted to 5E under services of DR. NORY ALARCON,[facility]. Pt. arrived via bed from ER. Chief complaint: FALL X 2, INJURYING RIGHT SHOULDER. ELIZABETH RIVERA
[2020-06-20] MEDS ORDERED: LORAZEPAM0.5 MG PO (01:11)
[2020-06-20] MEDS ORDERED: CLOPIDOGREL75 MG PO (01:11)
[2020-06-20] MEDS ORDERED: EUTHYROX75 MCG PO (01:15)
--- NOTE | 2020-06-20 01:55 | NUR ---
CALLED RESIDENT FOR ADMISSION ORDERS. PER DR CASTILLO, THEY ARE NOT CARING FOR DR CUETO'S PATIENTS
--- NOTE | 2020-06-20 02:00 | NUR ---
ATTEMPTED TO CALL DR CUETO FOR ADMISSION ORDSER, NO ANSWER.
--- NOTE | 2020-06-20 02:20 | NUR ---
DR CUETO CONTACTED, ADMISSION ORDERS RECEIVED
--- NOTE | 2020-06-20 06:00 | NUR ---
SLEPT SINCE ARRIVING ON FLOOR WITH NO C/O PAIN. SLING REMAINS AT BEDSIDE PATIENT CONTINUES TO REFUSE TO WEAR. CALL LIGHT WITHIN REACH. NO VOICED COMPLAINTS. BED ALARM MAINTAINED FOR SAFETY
[2020-06-20 08:00] VITALS: BP 106/88
--- NOTE | 2020-06-20 08:05 | NUR ---
DR. ALONZO'S OFFICE STAFF NOTIFIED OF CONSULT RE: RIGHT HUMERAL NECK FRACTURE.
--- NOTE | 2020-06-20 08:43 | NUR ---
DR. ALONZO IN TO SEE PATIENT RE: PLAN OF CARE.
--- NOTE | 2020-06-20 09:08 | NUR ---
MEDICATED WITH PRN PO TYLENOL AND IV DILAUDID FOR RIGHT SHOULDER PAIN.
--- NOTE | 2020-06-20 10:00 | NUR ---
PRN DILAUDID AND TYLENOL SOMEWHAT EFFECTIVE; STILL HAS SEVERE PAIN WITH MOVEMENT OF RIGHT UPPER EXTREMITY.
--- NOTE | 2020-06-20 10:45 | NUR ---
PHYSICAL THERAPY Physical Therapy evaluation completed on 5E with full evaluation to follow. Low complexity skilled PT evaluation per chart review and evaluation, [id number]. Recommend physical therapy per plan of care and SNF upon discharge. Thank you for this referral. Mariza Teresa,PT,DPT
--- NOTE | 2020-06-20 10:55 | NUR ---
MEDICATED WITH PRN PO ULTRAM FOR RIGHT SHOULDER PAIN EXACERBATED BY CUFF AND COLLAR APPLICATION TO RIGHT ARM AND PT/OT EXERCISE.
--- NOTE | 2020-06-20 11:16 | NUR ---
HOOP MAKER MACHINE-S in to talk to patient. Patient states lives at home with . There are 0 steps in the home. Physician: [facility] Constantino [facility]man [facility] Patient's level of ADLs: MAX ASSIST Patient has working utilities: yes DME: wheelchair, walker, shower chair Follow-up physician's appointment after d/c: Will need scheduled Does patient want to access PORTAL?: no Discharge plan: Met with pt to discuss discharge needs. Pt at first was adamant about returning home. Discussed this further and assisted pt in recognizing the barriers to returning home and being successful at this time. Pt acknowledged the need for a SNF with her preference being [facility]. After meeting with pt, phoned pt's Serafin and informed him of this. . KAMERON RAGSDALE
--- NOTE | 2020-06-20 11:40 | NUR ---
PRN PO ULTRAM EFFECTIVE LONG RIGHT ARM NOT MOVING, PER PATIENT.
--- NOTE | 2020-06-20 11:51 | NUR ---
Preliminary referral made to Zaira at [facility]. Will need H&P and PT/OT evals to complete referral.
[2020-06-20 12:00] VITALS: BP 150/91
--- NOTE | 2020-06-20 12:22 | NUR ---
Dr. Foreman notified of wound care recommendations. Orders obtained.
--- NOTE | 2020-06-20 12:30 | NUR ---
PODIATRY RESIDENT NOTIFIED OF CONSULT RE: LEFT GREAT TOE WOUND.
--- NOTE | 2020-06-20 13:50 | NUR ---
OT NOTE Pt was seen this P.M. 1:1 for 17 minute OT session. Upon arrival pt was supine in bed. Pt identified by name and and had complaints of 9/10 R shoulder pain. Pt presented to therapy with collar/cuff sling donned with proper fit and moderate R hand edema. Pt transferred supine to sit EOB with maxA X 2 and throughout pt was very tearful due to pain. While sitting EOB pt completed AROM to R hand for edema control and AROM to LUE over all planes for 1 X 10 to increase and restore maximum functional use and strength. Pt declined any standing tasks at this time due to pain and requested to lay back in bed. Pt transferred sit to supine with maxA X 2. There she was left with call light in hand, tray table in place, and bed alarm activated for safety. Continue with rec D/C plan to SNF. ERENDIRA Turcios/Sarah
--- NOTE | 2020-06-20 14:11 | NUR ---
PHYSICAL THERAPY Patient presented to therapy in supine in bed with head of bed elevated slightly and bed alarm on. Patient has her R UE in a sling and complains of 10/10 pain in the R shoulder and UE. Patient gives informed consent for treatment. Patient was identified by name and on wristband. Patient completed supine <> sitting on EOB with MAX A X 2. Patient unable to perform transfer herself due to severe pain. Patient sat on EOB with CGA - SBA. Patient declined to stand due to the severe pain in the R shoulder and UE. Patient says the Nurse gave her pain meds shortly ago. Patient performed seated bilateral LE ther ex x 10 reps each including marches, LAQs, and heel/toe raises for strengthening the LEs. Patient requested to lie back down due to her pain. Patient required MAX A X 2 sitting EOB > supine in bed. Patient was left in supine in bed with head of bed elevated, call light within reach and bedalarm on. Patien was 1:1 with this CARBONATION TESTER for 20 minutes total. CASA PLASCENCIA CARBONATION TESTER
--- NOTE | 2020-06-20 14:55 | NUR ---
DR. ARROYO NOTIFIED OF CONSULT.
--- NOTE | 2020-06-20 15:18 | NUR ---
PATIENT MEDICATED WITH PRN IV DILAUDID AND PO TYLENOL FOR SEVERE RIGHT ARM/SHOULDER PAIN.
[2020-06-20 16:00] VITALS: BP 92/46
--- NOTE | 2020-06-20 16:10 | NUR ---
PRN IV DILAUDID AND TYLENOL EFFECTIVE LONG RIGHT ARM NOT MOVED, PER PATIENT.
[2020-06-20 20:00] VITALS: BP 93/56
--- NOTE | 2020-06-20 20:30 | NUR ---
24 HR chart check completed.
--- NOTE | 2020-06-20 21:00 | NUR ---
RESTING IN BED WITH NO ACUTE DISTRESS NOTED. RESPIRATIONS EASY. LUNGS DIMINISHED, CLEAR. PULSE OX 93% RA. ABD SOFT WITH HYPER BS. BLE SLIGHTLY EDEMATOUS AND DISCOLORED. CALL LIGHT WITHIN REACH. NO VOICED COMPLAINTS. BED ALARM MAINTAINED FOR SAFETY
--- NOTE | 2020-06-20 21:54 | NUR ---
MEDICATED WITH ULTRAM FOR COMPLAINTS OF RIGHT ARM/SHOULDER PAIN RATING A 10. CALL LIGHT WITHIN REACH. WILL MONITOR
--- NOTE | 2020-06-20 22:30 | NUR ---
MEDS APPEAR EFFECTIVE. SLEEPING
[2020-06-21] VITALS (27 sets, daily range): BP systolic 85–128; BP diastolic 28–96
--- NOTE | 2020-06-21 | NUR ---
SLEEPING. NO DISTRESS NOTED. RESPIRATIONS EASY. VSS. CALL LIGHT WITHIN REACH
--- NOTE | 2020-06-21 00:57 | NUR ---
AWAKE, CRYING OUT. MEDICATED WITH DILAUDID TO ASSIST WITH RIGHT SHOULDER/ARM PAIN RATING A 10. ALSO PROVIDED WITH TRAZADONE TO ASSIST WITH SLEEP. WILL MONITOR
--- NOTE | 2020-06-21 01:35 | NUR ---
MEDS EFFECTIVE, SLEEPING
[2020-06-21 03:13] LABS: BILIRUBIN Negative (Negative); BLOOD 2+ (Negative); CLARITY Clear (Clear); COLOR Yellow (Yellow); GLUCOSE Negative (Negative); KETONE Negative (Negative); LEUKO ESTERASE Trace (Negative); NITRITE Negative (Negative); PH 5.5 (4.5-8.0); UROBILINOGEN 0.2 E.U./dl (0.0-1.0)
[2020-06-21 03:31] LABS: RBC 21-30 rbc/hpf (0-2)
--- NOTE | 2020-06-21 04:27 | NUR ---
CRYING OUT IN PAIN. MEDICATED WITH ULTRAM PER PRN ORDER FOR COMPLAINTS OF RIGHT SHOULDER PAIN RATING A 10. CALL LIGHT WITHIN REACH. WILL MONITOR
--- NOTE | 2020-06-21 05:15 | NUR ---
MEDS APPEAR EFFECTIVE. RESTING WITH EYES CLOSED. RESPIRATIONS EASY. RIGHT HAND REMAINS ELEVATED ON PILLOW. CALL LIGHT WITHIN REACH. BED ALARM MAINTAINED
[2020-06-21 06:35] LABS: BASO # 0.1 10*3/uL (0.0-0.1); BASO % 1.1 % (0.0-1.0); EOS # 0.1 10*3/uL (0.0-0.4); EOS % 1.7 % (1.0-4.0); LYMPH # 1.4 10*3/uL (1.3-4.4); LYMPH % 17.1 % (27.0-41.0); MEAN CELL VOLUME 86.6 fl (81.0-99.0); MEAN CORPUSCULAR HGB 26.2 pg (27.0-31.0); MEAN CORPUSCULAR HGB CONC 30.3 g/dl (33.0-37.0); MEAN PLATELET VOLUME 10.1 fl (9.6-12.3); MONO # 1.2 10*3/uL (0.1-1.0); MONO % 14.5 % (3.0-9.0); NEUT # 5.2 10*3/uL (2.3-7.9); NEUT % 65.1 % (47.0-73.0); PLATELET COUNT AUTOMATED 315 10*3/uL (130-400); RED BLOOD COUNT 3.81 10*6/uL (4.10-5.10); RED CELL DISTRI WIDTH 15.9 % (0-14.5); WHITE BLOOD COUNT 8.1 10*3/uL (4.8-10.8)
[2020-06-21 06:55] LABS: CREATININE 3.55 mg/dL (0.55-1.02); POTASSIUM 5.2 mmol/L (3.5-5.1)
--- NOTE | 2020-06-21 09:35 | NUR ---
OT NOTE Pt was seen this A.M. 1:1 for 15 minute OT session. Upon arrival pt was supine in bed. Pt identified by name and and had complaints of 10/10 R shoulder pain. Pt presented to therapy with collar/cuff sling which was donned and with proper fit and moderate edema to R hand. Pt was educated on NWB to RUE and no AROM, pt verbalized understanding. Pt transferred supine to sit EOB with maxA X 2. Throughout transfer pt was very tearful due to pain. Challenged pt's static sitting balance and pt was able to maintain F/F- sitting balance. Attempted to complete standing tasks and pt became even more tearful and declined at this time due to pain and fear of falling. Pt began yelling out "lay me back down, lay me back down." Pt was transferred sit to supine with maxA X 2. While supine in bed pt did complete aprox 10 reps of AROM to R hand for edema control. Pt was left supine in bed with call light in hand, tray table in place, and bed alarm activated for safety. Continue with rec D/C plan to SNF. ERENDIRA Turcios/Sarah
--- NOTE | 2020-06-21 09:40 | NUR ---
PHYSICAL THERAPY Patient presented in supine in bed with complaints of severe pain in the R shoulder and R UE of 04/22 . Patient gives informed consent for treatment. Patient required MAX A X 2 for bed mobility. Patient sat on EOB with MIN A X 2 - CGA X 2 for a few minutes then requested to go back to supine in bed because of pain in the R shoulder/UE. Patient declined to stand. Patient declined ther ex. Patient completed sitting on EOB > supine in bed with MAX A X 2. Patient was left in supine with head of bed elevated and bed alarm on. Patient was 1:1 with this CHILDREN'S TUTOR 16 minutes total. CASA PLASCENCIA CHILDREN'S TUTOR
--- NOTE | 2020-06-21 09:45 | NUR ---
Faxed H&P and PT/OT evals to Zaira at [facility] to complete referral. Await acceptance/denial.
--- NOTE | 2020-06-21 12:02 | NUR ---
PATIENT YELLING OUT, NONSENSICAL AT TIMES, POX 84% ROOM AIR, SHE REFUSES TO APPLY NASAL CANNULA 2L. SHE SPIT OUT PIECES OF HER PILLS EARLIER. PHONED DR. CUETO FOR ORDERS FOR PSYCH CONSULT, HALDOL AND XANAX PO NOW (WILL CRUSH IN APPLESAUCE). DR. BAER AND CHAYO ROSS, CORPORATE RECYCLING MANAGER TEXTED DIRECTOR STERILE PROCESSING JUDITH RE: CONSULT.
--- NOTE | 2020-06-21 12:09 | NUR ---
ADMINISTERED PO XANAX X 1 ORDERED AND APPLIED O2 2L NC. ALSO ADMINISTERED PO ULTRAM FOR RIGHT ARM/SHOULDER PAIN AT THIS TIME.
--- NOTE | 2020-06-21 12:53 | NUR ---
At approximately 11:50 entered pt's room to assess pt due to reports of pt yelling out with nonsensical speech. Found pt to be restless as she laid in bed with her eyes closed. Went to pt. Pt voiced that she remembered this blog writer and then stated with an escalated voice "please help me." When asked in what way, pt stated that she was is great pain. Pt continued to be restless and would close her eyes briefly and then look startled when she opened her eyes. Informed pt that this blog writer would ask the nurse for pain med for pt. Pt voiced understanding. Informed RN of pt's complaint of pain and request for pain med. Returned to pt and informed her of this. Pt requested that this blog writer stay with her until pt received med. Remained with pt and attempted to comfort pt. It is the opinion of this REGULATORY LAW SPECIALIST-S that pt's pain should be controlled before a true evaluation can be conducted to determine a psychiatric need for possible anti-psychotic.
--- NOTE | 2020-06-21 12:56 | NUR ---
ADMINISTERED PO HALDOL FOR ANXIETY; XANAX NOT EFFECTIVE. PER PATIENT ULTRAM NOT EFFECTIVE FOR PAIN.
--- NOTE | 2020-06-21 13:28 | NUR ---
DR. CUETO NOTIFIED THAT XANAX AND HALDOL NOT EFFECTIVE. OBTAINED ORDER FOR GEODON IV OR IF NOT AVAILABLE IV, GIVE PO 20MG
--- NOTE | 2020-06-21 14:00 | NUR ---
OT NOTE Pt was seen this P.M. 1:1 for second OT session consisting of 15 minutes. Upon arrival pt was supine in bed, restless, and speaking out with nonsensical speech. Pt identified by name and on wristband and had complaints of 10/10 R shoulder pain. Pt presented to therapy with continuous 2L-O2 via NC which she remained on throughout the entire session. Pt's R hand presented with mild edema this P.M.. Completed AROM to R hand for edema control and AROM to LUE over all planes with constant verbal and tactile prompts for attention to task and command follow. Throughout entire session pt continued to present with restless movements and nonsensical speech. Pt was left supine in bed with call light in hand, tray table in place, and bed alarm activated for safety. COntinue with rec D/C plan to SNF. ROSARIO Turcios
--- NOTE | 2020-06-21 14:16 | NUR ---
HOLDING PO EFFIE FOR NOW, PATIENT MORE CALM AND ABLE TO ANSWER QUESTIONS APPROPRIATELY. RAPID EYE MOVEMENTS, GRUNTING AND JERKING MOVEMENTS NOTED. SHE DENIES RIGHT ARM PAIN AT THIS TIME.
--- NOTE | 2020-06-21 15:10 | NUR ---
PATIENT HAVING TACHYPNEIC GASPING RESPIRATIONS ON O2 2L NC, POX 95%. EYES OPEN, BUT NOT ANSWERING QUESTIONS. BELL SPINNER CALLED. BEDSIDE GLUCOSE 138. POX DECREASED TO 82%, INCREASED O2 TO 4LNC. PULSE WEAK, APICAL HRR [address] GLOVER IN TO GIVE ORDERS FOR 250ML BOLUS OF NSS FOLLOWED BY NSS AT 70ML/HR, INSERT TSANG CATHETER AND SEND URINES FOR UA/CS.
--- NOTE | 2020-06-21 15:50 | NUR ---
TSANG INSERTED, 100ML CLEAR FINESSE URINE OBTAINED. POX 82% ON O2 4L, PLACED ON 100% NRB MASK. NSS BOLUS INFUSING, LAC IV SITE PATENT. PULSE 76 APICALLY. PULSE REMAINS WEAKN. BP 92/27. TEMP. 99.6 TEMPORAL. PATIENT REMAINS LETHARGIC WITH GASPING RESPIRATIONS, SKIN IS COOL. RISK ENGINEER CALLED AGAIN. OBTAINED ORDER TO GIVE NARCAN AND TRANSFER TO ICCU.
[2020-06-21 16:03] LABS: BASO # 0.1 10*3/uL (0.0-0.1); HEMATOCRIT 35.5 % (37.0-47.0); LYMPH # 0.9 10*3/uL (1.3-4.4); LYMPH % 8.6 % (27.0-41.0); MEAN CELL VOLUME 88.8 fl (81.0-99.0); MEAN CORPUSCULAR HGB CONC 29.3 g/dl (33.0-37.0); MONO % 9.5 % (3.0-9.0); NEUT # 8.3 10*3/uL (2.3-7.9); NEUT % 79.9 % (47.0-73.0); PLATELET COUNT AUTOMATED 385 10*3/uL (130-400); RED CELL DISTRI WIDTH 15.7 % (0-14.5); WHITE BLOOD COUNT 10.4 10*3/uL (4.8-10.8)
--- NOTE | 2020-06-21 16:08 | NUR ---
PATIENT TRANSFERRED TO ICCU, NARCAN ADMINISTERED. PATIENT BECAME ALERT AFTER NARCAN GIVEN, RESPIRATIONS REMAIN GASPING ON 100% NRB MASK. DR. CUETO IN TO ASSESS THE PATIENT. REPORT GIVEN TO RECEIVING NURSE. PER DEVIN, DOCUMENT ADVISOR, MESSAGE LEFT ON 'S PHONE TO CALL THE HOSPITAL.
--- NOTE | 2020-06-21 16:10 | NUR ---
PATIENT RECIEVED TO ICU AFTER RAPID RESPONSE ON 5EAST.-508-1 PATIENT IN NON-RESPONSIVE. AGONAL BREATHING, 15 LITER NON-REBREATHER APPLIED AND PULSE OX 98-100%. WAVEFORM VARIES AND OFTEN IS NOT GOOD QUALITY. BP IS LOW UPON ARRIVAL, CRITICAL LACTIC ACID CALLED TO DR CUETO WHILE HE WAS HERE. ORDERS RECIEVED. MEDICATIONS GIVEN PER EMAR.
[2020-06-21 16:13] LABS: ARTERIAL BLOOD GAS PH 7.264 (7.35-7.45)
[2020-06-21 16:16] LABS: CREATININE 4.2 mg/dL (0.55-1.02); TOTAL PROTEIN 7.3 gm/dL (6.4-8.2)
[2020-06-21 16:18] LABS: ABG BASE EXCESS -7.7 mmol/L (-2.0-2.0)
--- NOTE | 2020-06-21 16:25 | NUR ---
SPOKE WITH DR ROSEN REGARDING CONSULT, DR CUETO HERE IN ICU SPOKE WITH HIM FIRST REGARDING THE CONSULT. THEN DR ROSEN CALLED IN AND GAVE ORDERS TO INTUBATE PATIENT
--- NOTE | 2020-06-21 16:30 | NUR ---
PATIENT EMERGENTLY INTUBATED PER DR ROSEN ORDER, HAN NURSE ANESTHESTIST HERE, PATIENT SEDATED WITH VERSED AND DIPROVAN PER DR YI ORDERS. #7.5 TUBE PLACED AT THE LEVEL OF 25 AT THE LIP.
[2020-06-21 16:45] LABS: POTASSIUM 6.5 mmol/L (3.5-5.1)
--- NOTE | 2020-06-21 17:30 | NUR ---
CONSULT CALLED TO DR RICHEY, NO NEW ORDERS RECIEVED, STATES HE WILL SEE PATIENT TOMORROW
--- NOTE | 2020-06-21 17:30 | NUR ---
HAN PRODUCE BUYER ATTEMPTING TO PLACE CENTRAL LINE, HAVING SOME DIFFICULTY. DR JIMENEZ HERE TO ASSIST
--- NOTE | 2020-06-21 17:35 | NUR ---
SPOKE WITH PATIENTS , UPDATED ON HER CONDITION, ALL QUESTIONS ANSWERED. STATES HE WILL ACLL BACK LATER
--- NOTE | 2020-06-21 17:45 | NUR ---
DR JIMENEZ NOW ATTEMPTING TO PLACE CENTRAL LINE
--- NOTE | 2020-06-21 17:59 | NUR ---
Shift chart check completed.24 HR chart check completed.
--- NOTE | 2020-06-21 18:00 | NUR ---
MLC PLACED BY DR JIMENEZ. HAN HERMELINDA PLACED RT RADIAL ARTERIAL LINE. PT ORALLY INTUBATED, ON VENTILATOR. RECTAL TEMP >103. ICE BAGS TO BILATERAL AXILLAE, AND FEMEROL AREAS. MONITOR SHOWS AV PACED RHYTHM. TSANG PATENT SMALL AMOUNT FINESSE URINE. HER RT ARM IS EDEMATOUS WITH OLD YELLOWING ECCHYMOSIS.
[2020-06-21 18:17] LABS: BASO % 0.4 % (0.0-1.0); HEMATOCRIT 28.7 % (37.0-47.0); LYMPH # 0.5 10*3/uL (1.3-4.4); LYMPH % 6.2 % (27.0-41.0); MEAN CELL VOLUME 87.5 fl (81.0-99.0); MEAN CORPUSCULAR HGB 26.2 pg (27.0-31.0); MEAN PLATELET VOLUME 10.2 fl (9.6-12.3); MONO # 1.1 10*3/uL (0.1-1.0); MONO % 13.2 % (3.0-9.0); NEUT # 6.8 10*3/uL (2.3-7.9); NEUT % 79.4 % (47.0-73.0); RED BLOOD COUNT 3.28 10*6/uL (4.10-5.10); RED CELL DISTRI WIDTH 15.7 % (0-14.5); WHITE BLOOD COUNT 8.5 10*3/uL (4.8-10.8)
[2020-06-21 18:18] LABS: PLATELET COUNT AUTOMATED 267 10*3/uL (130-400)
[2020-06-21 18:21] LABS: ALBUMIN 2.5 gm/dl (3.1-4.5); CREATININE 4.09 mg/dL (0.55-1.02); POTASSIUM 5.6 mmol/L (3.5-5.1); TOTAL PROTEIN 5.9 gm/dL (6.4-8.2)
--- NOTE | 2020-06-21 18:34 | NUR ---
SPOKE WITH DR ARROYO, NEW ORDERS RECIEVED
[2020-06-21 19:38] LABS: ARTERIAL BLOOD GAS PH 7.362 (7.35-7.45)
[2020-06-21 19:46] LABS: ABG BASE EXCESS -5.1 mmol/L (-2.0-2.0)
--- NOTE | 2020-06-21 20:00 | NUR ---
IV DANTROLINE UP TO INFUSE VIA PUMP. CXR HAS BEEN DONE FOR LINE PLACEMENT.
--- NOTE | 2020-06-21 20:10 | NUR ---
DR ROSEN PHONED BY RESPIRATORY WITH LATEST ABG'S AND I HAVE UPDATED ON ALL CURRENT LABS AND MEDS.
--- NOTE | 2020-06-21 20:47 | NUR ---
CONSULT CALLED TO PAN.
[2020-06-21 21:52] LABS: CREATININE 3.99 mg/dL (0.55-1.02)
[2020-06-21 21:53] LABS: ALBUMIN 2.6 gm/dl (3.1-4.5); POTASSIUM 5.8 mmol/L (3.5-5.1); TOTAL PROTEIN 6.3 gm/dL (6.4-8.2)
--- NOTE | 2020-06-21 23:08 | NUR ---
DR ARROYO NOTIFIED OF ALL LABS INCLUDING CRITICAL LABS OF TROPONIN 1.58 AND LACTIC ACID 5.5. REVIEWD I/O'S AND VITALS. ORDERS RECEIVED.
--- NOTE | 2020-06-21 23:51 | NUR ---
DR ARROYO NOTIFIED OF LACTIC ACID 5.6. AND CVP MEASUREMENT OF 25. BOLUS SLOWED TO 100/HR. AWAITING CT SCAN TO BE AVAILABLE TO TAKE HER DOWN.
[2020-06-22] VITALS (96 sets, daily range): BP systolic 91–160; BP diastolic 47–60
--- NOTE | 2020-06-22 00:33 | NUR ---
COMPLETE BATH HAS BEEN GIVEN. I PHONED CAT SCAN TO SEE WHEN CT COULD BE DONE. THE SCANNER IS CURRENTLY DOWN. PT IS RESTING QUIETLY. VERSED DRIP IS AT 5MG/HR, LEVOPHED AT 8MCG/MIN. DR ARROYO HAD GIVEN ORDERS FOR FLUID BOLUS BUT WHEN I PHONED HER THE LAST SHE HAD ME SLOW THEM DOWN TO 100/HR. DR ARROYO ALSO INFORMED CT SCANNER IS DOWN AND ORDERS RECEIVED.
--- NOTE | 2020-06-22 02:51 | NUR ---
DR CASTILLO MADE AWARE OF KUB RESULTS SHOWING POSSIBLE ILEUS. OGT CONNECTED TO LIWS WITH AN IMMEDIATE DRAINAGE OF ABOUT 150 GREEN BROWN LIQUID.
[2020-06-22 06:17] LABS: BASO # 0.1 10*3/uL (0.0-0.1); BASO % 0.4 % (0.0-1.0); EOS # 0.1 10*3/uL (0.0-0.4); EOS % 0.8 % (1.0-4.0); HEMATOCRIT 31.4 % (37.0-47.0); LYMPH # 1.6 10*3/uL (1.3-4.4); LYMPH % 12.4 % (27.0-41.0); MEAN CELL VOLUME 85.6 fl (81.0-99.0); MEAN CORPUSCULAR HGB 25.9 pg (27.0-31.0); MEAN CORPUSCULAR HGB CONC 30.3 g/dl (33.0-37.0); MEAN PLATELET VOLUME 10.4 fl (9.6-12.3); MONO # 1.4 10*3/uL (0.1-1.0); MONO % 10.6 % (3.0-9.0); NEUT # 9.9 10*3/uL (2.3-7.9); NEUT % 74.8 % (47.0-73.0); PLATELET COUNT AUTOMATED 303 10*3/uL (130-400); RED BLOOD COUNT 3.67 10*6/uL (4.10-5.10); RED CELL DISTRI WIDTH 15.7 % (0-14.5); WHITE BLOOD COUNT 13.3 10*3/uL (4.8-10.8)
[2020-06-22 06:40] LABS: ALBUMIN 2.5 gm/dl (3.1-4.5); CREATININE 4.12 mg/dL (0.55-1.02); POTASSIUM 5.2 mmol/L (3.5-5.1); TOTAL PROTEIN 6.2 gm/dL (6.4-8.2)
--- NOTE | 2020-06-22 07:53 | NUR ---
OCCUPATIONAL THERAPY CO-SIGN I approve of the Occupational Therapy notes written above. ALLY NEGRO, OTR/L
--- NOTE | 2020-06-22 07:54 | NUR ---
OT NOTE Patient was evaluated for OT treatment on 06/20/2020. On 06/21/2020, patient had a rapid responde called, was transferred to the ICCU, and is now intubated. Will need new orders when patient is medically appropriate for an OT evaluation. Thank you. Christy Umaña, OTR/L
--- NOTE | 2020-06-22 08:00 | NUR ---
PHYSICAL THERAPY Patient was evaluated for PT treatment on 06/20/2020. On 06/21/2020, patient had a rapid responde called, was transferred to the ICCU, and is now intubated. Will need new orders when patient is medically appropriate for a PT evaluation. Thank you. Rocio Guerrero PT
--- NOTE | 2020-06-22 08:37 | NUR ---
PATIENTS PLATEAU PRESSURE IS 21.
[2020-06-22 08:38] LABS: ABG BASE EXCESS -2.8 mmol/L (-2.0-2.0); ARTERIAL BLOOD GAS PH 7.405 (7.35-7.45)
--- NOTE | 2020-06-22 10:00 | NUR ---
VERSED PLACED ON HOLD AT THIS TIME FOR SEDATION VACATION.
--- NOTE | 2020-06-22 12:05 | NUR ---
Informed Zaira at [facility] that pt was moved to ICCU and is currently intubated. Zaira requested that clinical update be provided once pt is stable.
--- NOTE | 2020-06-22 12:21 | NUR ---
DR ARROYO IN TO SEE PT. NORMAL SALINE DECREASED TO 70CC/HR PER DR ARROYO ORDER.
--- NOTE | 2020-06-22 13:10 | NUR ---
GASTROGRAFIN GIVEN VIA NG TUBE.
--- NOTE | 2020-06-22 13:30 | NUR ---
OT NOTE Patient was evaluated for OT on 06/20/2020. Patient transferred to the ICCU on 06/21/2020. Educated nursing that patient has a right proximal humerus fx, is RUE NWB, and no active motion of R shoulder. Please defer back to orthopedic MD for further clarifications. Thank you. Christy Umaña, OTR/L
--- NOTE | 2020-06-22 14:58 | NUR ---
VERSED GTT REMAINS OFF. PT ONLY HAS SLIGHT GRIMACE WITH STERNAL RUB NO OTHER RESPONSIVENESS NOTED. DR ROSEN AWARE OF MENTATION.
--- NOTE | 2020-06-22 16:04 | NUR ---
Nutritional Support Services Note: Pt is currently on a vent. NPO status. Pt with possible ileus. NGT to LIS. Pt may need another form of nutrition. Will follow for nutritional status. Charo Nair Rdn Ld
[2020-06-22 16:13] LABS: BASO # 0.1 10*3/uL (0.0-0.1); BASO % 0.7 % (0.0-1.0); EOS # 0.1 10*3/uL (0.0-0.4); HEMATOCRIT 31.4 % (37.0-47.0); LYMPH # 1.5 10*3/uL (1.3-4.4); LYMPH % 12.3 % (27.0-41.0); MEAN CELL VOLUME 86.7 fl (81.0-99.0); MEAN CORPUSCULAR HGB 26.5 pg (27.0-31.0); MEAN CORPUSCULAR HGB CONC 30.6 g/dl (33.0-37.0); MEAN PLATELET VOLUME 10.6 fl (9.6-12.3); MONO # 0.9 10*3/uL (0.1-1.0); MONO % 7.5 % (3.0-9.0); NEUT # 9.2 10*3/uL (2.3-7.9); NEUT % 77.8 % (47.0-73.0); PLATELET COUNT AUTOMATED 294 10*3/uL (130-400); RED BLOOD COUNT 3.62 10*6/uL (4.10-5.10); RED CELL DISTRI WIDTH 15.9 % (0-14.5); WHITE BLOOD COUNT 11.8 10*3/uL (4.8-10.8)
[2020-06-22 16:41] LABS: ALBUMIN 2.5 gm/dl (3.1-4.5); CREATININE 4.36 mg/dL (0.55-1.02); POTASSIUM 5.1 mmol/L (3.5-5.1); TOTAL PROTEIN 6.3 gm/dL (6.4-8.2)
--- NOTE | 2020-06-22 21:18 | NUR ---
CT back up, they can do head, but not abdomen due to gastrografin given. Will need to wait til tomorrow, so both will be done at that time since patient is on vent and will make less trips.
--- NOTE | 2020-06-22 23:01 | NUR ---
24 HR chart check completed.
[2020-06-23] VITALS (92 sets, daily range): BP systolic 92–110; BP diastolic 48–59
--- NOTE | 2020-06-23 04:20 | NUR ---
Patient had large runny bm, total bath given, patient did grimace with movement to rt arm and being turned. Patient never opened her eyes.
[2020-06-23 05:12] LABS: BILIRUBIN Negative (Negative); BLOOD Negative (Negative); CLARITY Clear (Clear); COLOR Dark Yellow (Yellow); GLUCOSE Negative (Negative); KETONE Trace (Negative); LEUKO ESTERASE Trace (Negative); NITRITE Negative (Negative); SPECIFIC GRAVITY 1.025 (1.001-1.030)
[2020-06-23 05:27] LABS: BACTERIA 1+
[2020-06-23 05:54] LABS: BASO # 0.1 10*3/uL (0.0-0.1); BASO % 0.7 % (0.0-1.0); EOS # 0.1 10*3/uL (0.0-0.4); EOS % 1.4 % (1.0-4.0); HEMATOCRIT 31.1 % (37.0-47.0); LYMPH # 0.9 10*3/uL (1.3-4.4); LYMPH % 8.5 % (27.0-41.0); MEAN CELL VOLUME 85.4 fl (81.0-99.0); MEAN CORPUSCULAR HGB 25.8 pg (27.0-31.0); MEAN CORPUSCULAR HGB CONC 30.2 g/dl (33.0-37.0); MEAN PLATELET VOLUME 10.5 fl (9.6-12.3); MONO # 0.8 10*3/uL (0.1-1.0); NEUT # 8.3 10*3/uL (2.3-7.9); NEUT % 80.8 % (47.0-73.0); PLATELET COUNT AUTOMATED 283 10*3/uL (130-400); RED BLOOD COUNT 3.64 10*6/uL (4.10-5.10); RED CELL DISTRI WIDTH 15.7 % (0-14.5); WHITE BLOOD COUNT 10.2 10*3/uL (4.8-10.8)
[2020-06-23 06:07] LABS: ALBUMIN 2.4 gm/dl (3.1-4.5); CREATININE 4.56 mg/dL (0.55-1.02); POTASSIUM 5.2 mmol/L (3.5-5.1); TOTAL PROTEIN 5.9 gm/dL (6.4-8.2)
[2020-06-23 09:25] LABS: ABG BASE EXCESS -2.2 mmol/L (-2.0-2.0); ARTERIAL BLOOD GAS PH 7.401 (7.35-7.45)
[2020-06-23 17:09] LABS: ABG BASE EXCESS -2.1 mmol/L (-2.0-2.0); ARTERIAL BLOOD GAS PH 7.402 (7.35-7.45)
--- NOTE | 2020-06-23 19:30 | NUR ---
CHART CHECK COMPLETE.
--- NOTE | 2020-06-23 19:38 | NUR ---
PT ASSESSED, REPOSITIONED, MOUTH CARE DONE. PT DOES GRIMACE AND TURNS HEAD DURING MOUTH CARE. OGT TO LOW INTERMITTENT SUCTION...GREEN LIQUID NOTED. TSANG SECURE WITH FINESSE URINE NOTED. ARMS PROPPED WITH PILLOWS. HEELS OFF OF BED.
[2020-06-24] VITALS (93 sets, daily range): BP systolic 92–135; BP diastolic 47–73
--- NOTE | 2020-06-24 00:15 | NUR ---
DR PEREZ CALLS IN. REASON OF CONSULT AND PLAN OF CARE DISCUSSED. PT REMAINS NPO.
--- NOTE | 2020-06-24 02:25 | NUR ---
METICULOUS MOUTH CARE AND COMPLETE BATH AND BED LINEN CHANGE DONE. PT DOES APPEAR TO BE CONTINUING WAKING UP MORE BUT DOES NOT FOLLOW COMMANDS.
[2020-06-24 04:40] LABS: BASO # 0.1 10*3/uL (0.0-0.1); BASO % 0.6 % (0.0-1.0); EOS # 0.2 10*3/uL (0.0-0.4); EOS % 1.7 % (1.0-4.0); HEMATOCRIT 29.5 % (37.0-47.0); LYMPH # 0.8 10*3/uL (1.3-4.4); LYMPH % 8.1 % (27.0-41.0); MEAN CELL VOLUME 85.5 fl (81.0-99.0); MEAN CORPUSCULAR HGB 25.8 pg (27.0-31.0); MEAN CORPUSCULAR HGB CONC 30.2 g/dl (33.0-37.0); MEAN PLATELET VOLUME 10.6 fl (9.6-12.3); MONO # 0.7 10*3/uL (0.1-1.0); MONO % 7.7 % (3.0-9.0); NEUT # 7.5 10*3/uL (2.3-7.9); PLATELET COUNT AUTOMATED 274 10*3/uL (130-400); RED BLOOD COUNT 3.45 10*6/uL (4.10-5.10); RED CELL DISTRI WIDTH 15.9 % (0-14.5); WHITE BLOOD COUNT 9.3 10*3/uL (4.8-10.8)
[2020-06-24 04:57] LABS: ALBUMIN 2.3 gm/dl (3.1-4.5); CREATININE 4.45 mg/dL (0.55-1.02); POTASSIUM 4.8 mmol/L (3.5-5.1); TOTAL PROTEIN 5.8 gm/dL (6.4-8.2)
--- NOTE | 2020-06-24 08:00 | NUR ---
PT REMAINS INTUBATED WITH NO SEDATION. PT DOES OPEN EYES WITH STIMULI AND IS ABLE TO FOLLOW SIMPLE COMMANDS. PT REMAINS ON LEVOPHED GTT AT 4MICS/MIN. MAP RANGING 65-71. OTHER VITAL SIGNS REMAIN STABLE. LUNG CADET DIM. PT SUCTIONED FOR SMALL AMOUNT OF WHITE MUCUS. OGT PLACEMENT VERIFIED WITH AN AIR BOLUS. OGT REMAINS TO LIS. DARK GREEN FLUID NOTED IN SUCTION TUBING AND TRAP. ABD. OBESE WITH ACTIVE BOWEL SOUNDS. TSANG PATENT FOR TSANG PATENT FOR FINESSE COLORED URINE. PERIPHERAL EDEMA NOTED. DRESSING TO LEFT TOE AND KNEE D/I. PT TURNED FOR COMFORT AND PRESSURE ULCER PREVENTION. WILL CONTINE TO MONITOR PT.
--- NOTE | 2020-06-24 08:02 | NUR ---
BILATERAL LOWER LEGS AND FEET ARE REDDENED.
--- NOTE | 2020-06-24 08:15 | NUR ---
DR RICHEY IN TO SEE PT. HE ORDERED TO D/C IV FLUIDS.
[2020-06-24 09:23] LABS: ARTERIAL BLOOD GAS PH 7.397 (7.35-7.45)
--- NOTE | 2020-06-24 11:27 | NUR ---
PT RESTING. NO ACUTE DISTRESS NOTED. WILL CONTINUE TO MONITOR PT.
--- NOTE | 2020-06-24 14:57 | NUR ---
DR ROSEN IN TO SEE PT. VENT SETTINGS CHANGED TO CPAP 5/10. ABG IN 2 HOURS IF PT TOLERATES. [address] ARROYO IN TO SEE PT. UPDATED HER ON PT'S LABS,CONDITION AND PLAN OF CARE. DR ARROYO ORDERED FOR 40MG IV LASIX INSTEAD OF 80MG IV AND REPEAT CMP TONIGHT AT 1999 AND CALL RESULTS TO HER.
--- NOTE | 2020-06-24 15:19 | NUR ---
DR CUETO IN TO SEE PT. UPDATED HIM ON PT'S CONDITION AND PLAN OF CARE. DR ARROYO CALLED IN AND ORDERED ANOTHER 40MG IV LASIX NOW (TOTAL 80MG).
--- NOTE | 2020-06-24 15:30 | NUR ---
TOTAL OF 80MG IV LASIX GIVEN TO PT PER ORDER. PT TOLERATING CPAP WELL AT THIS TIME.
[2020-06-24 16:05] LABS: FINE GRANULAR CAST 16-20
[2020-06-24 16:07] LABS: BACTERIA 1+
--- NOTE | 2020-06-24 16:20 | NUR ---
DR ROSEN UPDATED ON PT'S ABG RESULTS AND PT'S CONDITION. NEW ORDERS RECEIVED.
--- NOTE | 2020-06-24 16:20 | NUR ---
ABG'S DRAWN FROM ART LINE PER ORDER. PT BREATHING "AROUND TUBE " POX DROPPING. STAT CXR ORDERED. FIO2 INCREASED TO 40% POX INCREASED TO 94%. WILL CONTINUE TO MONITOR PT.
[2020-06-24 16:30] LABS: ABG BASE EXCESS -3.8 mmol/L (-2.0-2.0); ARTERIAL BLOOD GAS PH 7.231 (7.35-7.45)
[2020-06-24 20:22] LABS: ALBUMIN 2.2 gm/dl (3.1-4.5); CREATININE 4.27 mg/dL (0.55-1.02); POTASSIUM 4.8 mmol/L (3.5-5.1); TOTAL PROTEIN 5.9 gm/dL (6.4-8.2)
[2020-06-25] VITALS (95 sets, daily range): BP systolic 82–151; BP diastolic 43–72
[2020-06-25 06:20] LABS: ALBUMIN 2.2 gm/dl (3.1-4.5); CREATININE 4.34 mg/dL (0.55-1.02); POTASSIUM 4.5 mmol/L (3.5-5.1); TOTAL PROTEIN 6.1 gm/dL (6.4-8.2)
[2020-06-25 06:23] LABS: BASO % 0.5 % (0.0-1.0); EOS # 0.2 10*3/uL (0.0-0.4); EOS % 2.1 % (1.0-4.0); HEMATOCRIT 29.4 % (37.0-47.0); LYMPH # 0.9 10*3/uL (1.3-4.4); LYMPH % 10.8 % (27.0-41.0); MEAN CORPUSCULAR HGB CONC 30.3 g/dl (33.0-37.0); MEAN PLATELET VOLUME 10.5 fl (9.6-12.3); MONO # 0.8 10*3/uL (0.1-1.0); MONO % 9.5 % (3.0-9.0); NEUT # 6.7 10*3/uL (2.3-7.9); NEUT % 76.5 % (47.0-73.0); PLATELET COUNT AUTOMATED 266 10*3/uL (130-400); RED BLOOD COUNT 3.42 10*6/uL (4.10-5.10); RED CELL DISTRI WIDTH 16.1 % (0-14.5); WHITE BLOOD COUNT 8.7 10*3/uL (4.8-10.8)
[2020-06-25 07:51] LABS: ABG BASE EXCESS -1.8 mmol/L (-2.0-2.0); ARTERIAL BLOOD GAS PH 7.382 (7.35-7.45)
--- NOTE | 2020-06-25 11:00 | NUR ---
PT RESTING. PT REMAINS INTUBATED WITH A #7.5 ENDOTUBE 26 CM AT LIP LEVEL. POX 98% ON 40% FIO2. LUNG FIEDLS DIM. SUCTIONED PT FOR A AMALL AMOUNT OF WHITISH-YELLOW MUCUS. OGT D/C'D AND LEFT NARE NGT PLACED PER ORDER OF DR ROSEN. PLACEMENT VERIFIED WITH AN AIR BOLUS. ABD. OBESE WITH HYPOACTIVE BOWEL SOUNDS. PT INCONT. OF LIQUID BROWN BM. PT CLEANED AND LINENS CHANGED. TSANG PATENT FOR FINESSE URINE. LOWER LEGS AND FEET REDDENED. PT TURNED AND REPOSITIONED FOR COMFORT AND PRESSURE ULCER PREVENTION.
--- NOTE | 2020-06-25 12:30 | NUR ---
DR ROSEN IN TO SEE PT. UPDATED HIM ON PT'S CONDITION. DR ROSEN CHANGED PT'S VENT SETTIGS TO CPAP 11/30.
--- NOTE | 2020-06-25 12:58 | NUR ---
MODE CHANGED TO CPAP 5 WITH PSV OF 20 AT 12:[address] ROSEN. PT TOLERATING WELL. RR 20 VST [address] CC[address] HR [address] ROSEN, PS TO BE DECREASED BY 10 Q 30 MINS TILL PS OF 10 IS REACHED. ABG TO FOLLOW IN 2 HRS POST PS OF 10. AT THIS TIME, PSV DECREAASED TO 15
--- NOTE | 2020-06-25 13:00 | NUR ---
CPAP DECREASED TO 5/15 PER ORDER. WILL CONTINUE TO MONITOR PT.
--- NOTE | 2020-06-25 13:33 | NUR ---
PT ON PS OF 15 VST 450 SPO2 [address] ROSEN, PSV DECCREASED 10. ABG TO FOLLOW IN 2 HR. VST ON PSV OF 10 350 AT THIS TIME.
--- NOTE | 2020-06-25 14:33 | NUR ---
SPOKE WITH DR ARROYO REGARDING PT. ORDERS RECEIVED TO GIVE LASIX 80MG IV X1 NOW AND HAVE DR ÁLVAREZ PLACE TEMP. DIALYSIS CATH FOR DIALYSIS TOMORROW. NOTIFIED DR ÁLVAREZ AND HE STATED HE WILL PLACE THE CATH TOMORROW AND TO HAVE THE SUPPLIES AT THE BEDSIDE FOR HIM.
--- NOTE | 2020-06-25 15:00 | NUR ---
PT TOLERATING CPAP WELL.
[2020-06-25 16:00] LABS: ABG BASE EXCESS -2.1 mmol/L (-2.0-2.0); ARTERIAL BLOOD GAS PH 7.383 (7.35-7.45)
--- NOTE | 2020-06-25 16:00 | NUR ---
PT CONTINUES TO TOLERATE CPAP WELL. PT FOLLOWING SIMPLE COMMANDS. ABG'S DRAWN FROM ART LINE.
--- NOTE | 2020-06-25 18:00 | NUR ---
PT EXTUBATED TO BIPAP 16/10 W/ BACKUP RATE OF 12 AND 40% FIO2. WILL CONTINUE TO MONITOR PT.
--- NOTE | 2020-06-25 18:31 | NUR ---
PT RESTING. POX 97% ON 40% FIO2 BIPAP. HR 70,BP 104/48. WILL CONTINUE TO MONITOR PT.
--- NOTE | 2020-06-25 20:26 | NUR ---
TELEPHONE PERMISSION FOR DIALYSIS CATHETER INSERTION RECEIVED FROM PT'S , EVELIA.
[2020-06-25 20:34] LABS: ABG BASE EXCESS -1.7 mmol/L (-2.0-2.0); ARTERIAL BLOOD GAS PH 7.379 (7.35-7.45)
[2020-06-26] VITALS (95 sets, daily range): BP systolic 94–124; BP diastolic 37–62
--- NOTE | 2020-06-26 02:00 | NUR ---
LATE NOTE: INCONTINENT OF SEEDY LIKE STOOL. ABDS APPLIED BETWEEN SKIN AND TSANG CATH TUBE AND RECTAL PROBE TO PROTECT SKIN. N/G HAS MOD COLORED GREENISH LIQUID. INTERMITTENT SUCTION. TOLERATING BIPAP WELL. PARTIAL BATH DONE. REPOSITIONED Q 2 HOURS WITH ALL EXTREMETIES ELEVATED. 3+ TAUNT EDEMA NOTED DRESSING CHANGE TO [facility] DONE UNDER STERILE TECHNIQUE. CHART CHECK COMPLETED.
[2020-06-26 09:24] LABS: BASO # 0.1 10*3/uL (0.0-0.1); BASO % 0.7 % (0.0-1.0); EOS # 0.2 10*3/uL (0.0-0.4); EOS % 1.8 % (1.0-4.0); HEMATOCRIT 31.4 % (37.0-47.0); LYMPH # 1.2 10*3/uL (1.3-4.4); LYMPH % 14.3 % (27.0-41.0); MEAN CORPUSCULAR HGB 25.5 pg (27.0-31.0); MEAN CORPUSCULAR HGB CONC 29.6 g/dl (33.0-37.0); MEAN PLATELET VOLUME 10.1 fl (9.6-12.3); MONO % 11.9 % (3.0-9.0); NEUT % 70.7 % (47.0-73.0); PLATELET COUNT AUTOMATED 243 10*3/uL (130-400); RED BLOOD COUNT 3.65 10*6/uL (4.10-5.10); WHITE BLOOD COUNT 8.5 10*3/uL (4.8-10.8)
[2020-06-26 09:44] LABS: ALBUMIN 2.3 gm/dl (3.1-4.5); POTASSIUM 4.2 mmol/L (3.5-5.1); TOTAL PROTEIN 6.2 gm/dL (6.4-8.2)
--- NOTE | 2020-06-26 09:51 | NUR ---
DR ARROYO SPOKE WITH [id number] YESTERDAY PER ABOUT DIALYSIS CATHETER AND SHE GAVE PERMISSION BUT DOES NOT HAVE POA - DR ARROYO IS CALLING THE NOW TO SPEAK WITH HIM DIRECTLY
--- NOTE | 2020-06-26 10:01 | NUR ---
DR ARROYO SPOKE WITH THE AND HE AGREES TO THE PLACEMENT OF THE DIALYSIS CATHETER - NURSE ALSO CALLED TO VERIFY CONSENT
--- NOTE | 2020-06-26 11:00 | NUR ---
unable to assess patient at this time. Dr. Valderrama at bedside.
--- NOTE | 2020-06-26 12:18 | NUR ---
Informed Zaira at [facility] that pt remains in the ICCU. Will fax updates to Zaira when pt is more stable.
[2020-06-26 12:19] LABS: ARTERIAL BLOOD GAS PH 7.414 (7.35-7.45)
--- NOTE | 2020-06-26 16:07 | NUR ---
OT NOTE Nursing screen received and chart reviewed. Patient admitted following a fall at home resulting in a R proximal humerus fx. Patient was intubated on 06/21, extubated on 06/25, and had a dialysis port placed on 06/26. If patient has a decline in ADLs, transfers, or mobility, please consult OT when medically appropriate. Thank you. Christy Umaña, OTR/L
--- NOTE | 2020-06-26 16:12 | NUR ---
PHYSICAL THERAPY Nursing screen received and chart reviewed. Patient admitted following a fall at home resulting in a R proximal humerus fx. Patient had decline in status which resulted in intubation 06/21. Patient was extubated 06/25. Patient on BiPap at this time. Dialysis port placed this date. Recommend skilled PT evaluation when medically appropriate to participate. Thank you. Mariza Teresa,PT,DPT
--- NOTE | 2020-06-26 21:43 | NUR ---
Patient grimaces in pain of rt arm, moans out under bipap. Contacted Dr. Villagomez, and new order received for dilaudid x1 given. Will monitor and reassess.
--- NOTE | 2020-06-26 22:58 | NUR ---
Patient resting, no signs of distress. Dilaudid effective.
[2020-06-27] VITALS: BP 106/50
--- NOTE | 2020-06-27 00:08 | NUR ---
Levophed shut off. Patient's blood pressure stable. Map 70's.
--- NOTE | 2020-06-27 01:29 | NUR ---
24 HR chart check completed.
[2020-06-27 04:00] VITALS: BP 102/48
[2020-06-27 06:14] LABS: CREATININE 3.53 mg/dL (0.55-1.02); TOTAL PROTEIN 5.4 gm/dL (6.4-8.2)
[2020-06-27 06:26] LABS: BASO % 0.6 % (0.0-1.0); EOS # 0.1 10*3/uL (0.0-0.4); EOS % 2.6 % (1.0-4.0); LYMPH # 1.1 10*3/uL (1.3-4.4); LYMPH % 20.6 % (27.0-41.0); MEAN CELL VOLUME 85.7 fl (81.0-99.0); MEAN CORPUSCULAR HGB 25.4 pg (27.0-31.0); MEAN CORPUSCULAR HGB CONC 29.6 g/dl (33.0-37.0); MEAN PLATELET VOLUME 10.7 fl (9.6-12.3); MONO # 0.6 10*3/uL (0.1-1.0); MONO % 11.3 % (3.0-9.0); NEUT # 3.5 10*3/uL (2.3-7.9); NEUT % 64.7 % (47.0-73.0); PLATELET COUNT AUTOMATED 200 10*3/uL (130-400); RED BLOOD COUNT 3.15 10*6/uL (4.10-5.10); RED CELL DISTRI WIDTH 15.9 % (0-14.5); WHITE BLOOD COUNT 5.4 10*3/uL (4.8-10.8)
--- NOTE | 2020-06-27 06:50 | NUR ---
3 New wounds found on assessment of prior wounds. Pics taken, measurements taken, and dressing applied. Adriel sam.
[2020-06-27 08:00] VITALS: BP 97/38
[2020-06-27 08:43] LABS: ABG BASE EXCESS 0.5 mmol/L (-2.0-2.0); ARTERIAL BLOOD GAS PH 7.443 (7.35-7.45)
[2020-06-27 10:57] VITALS: BP 100/45
[2020-06-27 16:00] VITALS: BP 106/51; BP 108/44
[2020-06-27 20:00] VITALS: BP 103/44
--- NOTE | 2020-06-27 20:00 | NUR ---
PT RESTING IN BED AWAKE AND MUMBLES. RIGHT IN MLC AND RIGHT ARTLINE PATENT, DRESSING DRY AND INTACT. TSANG PATENT FOR DARK FINESSE URINE. RIGHT FEMORAL DIALYSIS PORT PATENT, DRESSING DRY AND INTACT. RESP NONLABORED. NO ACUTE DISTRESS NOTED.
[2020-06-28] VITALS: BP 94/44
[2020-06-28 04:00] VITALS: BP 95/46
[2020-06-28 05:59] LABS: ALBUMIN 2.2 gm/dl (3.1-4.5); CREATININE 3.49 mg/dL (0.55-1.02); POTASSIUM 3.8 mmol/L (3.5-5.1); TOTAL PROTEIN 5.5 gm/dL (6.4-8.2)
[2020-06-28 06:17] LABS: BASO % 0.3 % (0.0-1.0); EOS # 0.2 10*3/uL (0.0-0.4); EOS % 2.6 % (1.0-4.0); HEMATOCRIT 26.7 % (37.0-47.0); LYMPH # 1.2 10*3/uL (1.3-4.4); LYMPH % 18.3 % (27.0-41.0); MEAN CELL VOLUME 86.4 fl (81.0-99.0); MEAN CORPUSCULAR HGB 25.6 pg (27.0-31.0); MEAN CORPUSCULAR HGB CONC 29.6 g/dl (33.0-37.0); MEAN PLATELET VOLUME 10.7 fl (9.6-12.3); MONO # 0.7 10*3/uL (0.1-1.0); MONO % 10.4 % (3.0-9.0); NEUT # 4.4 10*3/uL (2.3-7.9); NEUT % 67.8 % (47.0-73.0); PLATELET COUNT AUTOMATED 215 10*3/uL (130-400); RED BLOOD COUNT 3.09 10*6/uL (4.10-5.10); RED CELL DISTRI WIDTH 16.2 % (0-14.5); WHITE BLOOD COUNT 6.4 10*3/uL (4.8-10.8)
[2020-06-28 08:00] VITALS: BP 102/49
[2020-06-28 12:00] VITALS: BP 92/44
--- NOTE | 2020-06-28 12:47 | NUR ---
SPEECH PATHOLOGY Bedside swallow evaluation completed this date per MD order. Pt admitted to this facility on 06/19 s/p fall with R humeral fx. During stay, pt O2 sats declined and pt was transferred to ICU and intubated on 06/21. Pt extubated on 06/25 and remained on NG tube for nutrition/hydration pending ST eval to determine if PO intake could be initiated. This BEDSPREAD FOLDER presented to pt's bedside and verbally confirmed pt's name and and explained bedside swallow evaluation procedure; pt verbalized understanding. BEDSPREAD FOLDER raised HOB to approx 90 degrees prior to initiating PO trials. CN exam grossly intact; lingual ROM and coordination appeared somewhat limited, likely secondary to overall pt deconditioning/lethargy. This BEDSPREAD FOLDER presented trials of ice chips x5, thin water per spoon x2, and small amount of applesauce per spoon x2. Pt presenting with piecemeal swallow with all presented consistencies (3-5 swallows/per bolus) as well as overt post-prandial overt s/s with thin liquids and ice chips. Prolonged oral phase noted with all consistencies. Given pt's recent Hx of respiratory complications, limited mobility, and overall deconditioning, recommend pt remain NPO at this time. NG currently placed for nutrition/hydration. Recommend pt receive ST tx for swallow rehabilitation to improve ability to safely consume PO intake and reduce risk of further respiratory complications. Thank you for this referral Jesusita Gallegos MA [facility]-BEDSPREAD FOLDER
[2020-06-28 16:00] VITALS: BP 104/75
[2020-06-28 20:00] VITALS: BP 92/39
--- NOTE | 2020-06-28 22:30 | NUR ---
PATIENT RESTING IN BED. FIDGETING IN BED TURNING SELF SIDEWAYS. REPOSITIONED AT THIS TIME. N/G TUBE PATENT WITH TUBE FEED INFUSING AT 10CC/HR. TSANG CATH PATENT DRAINING DARK FINESSE URINE. PATIENT DOES NOT REALLY RESPOND TO VERBAL STIMULI. TRIES TO OPEN EYES WHEN CALLED BY NAME. O2 ON AT 2L N/C. RIGHT IJ FLUSHES WITHOUT DIFFICULTY. NO SIGNS OR SYMPTOMS OF DISTRESS NOTED. WILL CONTINUE TO MONITOR. CALL LIGHT IN REACH.
[2020-06-29] VITALS: BP 95/44
--- NOTE | 2020-06-29 04:07 | NUR ---
PATIENT IN ROOM CRYING SHE WANTS SOMETHING TO DRINK.
--- NOTE | 2020-06-29 08:15 | NUR ---
CALLED AND LEFT A MESSAGE FOR DR. ÁLVAREZ IN REGARDS TO PT'S DIALYSIS CATHETER ACTIVELY BLEEDING. AWAITING CALL BACK.
--- NOTE | 2020-06-29 08:43 | NUR ---
PT'S WAS CALLED FOR CONSENT FOR EGD. SECOND NURSE VERIFIED OKAY FOR SURGERY. TREATMENT CONSENT WAS COMPLETED.
--- NOTE | 2020-06-29 09:00 | NUR ---
PT HAD REMOVED HER NG TUBE AROUND 0830. NG WAS PLACED BACK IN AND AWAITING VERIFICATION VIA XRAY FOR PLACEMENT. PT'S NG TUBE IS CURRENTLY CLAMPED UNTIL PLACEMENT GETS VERIFIED.
--- NOTE | 2020-06-29 09:06 | NUR ---
SPOKE WITH DR. ÁLVAREZ IN REGARDS TO DIALYSIS CATHETER BLEEDING, HE STATED JUST TO PLACE A NEW PRESSURE DRESSING ON PT.
[2020-06-29 09:11] LABS: FERRITIN 93.4 ng/mL (10.0-291.0)
--- NOTE | 2020-06-29 09:40 | NUR ---
PT LEFT THE UNIT FOR DIALYSIS.
[2020-06-29 09:44] LABS: BASO % 0.3 % (0.0-1.0); EOS # 0.1 10*3/uL (0.0-0.4); EOS % 1.6 % (1.0-4.0); HEMATOCRIT 27.9 % (37.0-47.0); LYMPH # 1.1 10*3/uL (1.3-4.4); LYMPH % 13.5 % (27.0-41.0); MEAN CORPUSCULAR HGB 25.6 pg (27.0-31.0); MEAN PLATELET VOLUME 10.7 fl (9.6-12.3); MONO # 0.8 10*3/uL (0.1-1.0); MONO % 9.9 % (3.0-9.0); NEUT # 5.9 10*3/uL (2.3-7.9); NEUT % 74.1 % (47.0-73.0); PLATELET COUNT AUTOMATED 260 10*3/uL (130-400); RED BLOOD COUNT 3.17 10*6/uL (4.10-5.10); RED CELL DISTRI WIDTH 16.5 % (0-14.5)
[2020-06-29 09:51] LABS: ALBUMIN 2.3 gm/dl (3.1-4.5); CREATININE 3.29 mg/dL (0.55-1.02); POTASSIUM 3.8 mmol/L (3.5-5.1)
--- NOTE | 2020-06-29 10:07 | NUR ---
SPEECH PATHOLOGY Attempted to tx pt this AM; however, pt had recently left the floor for dialysis. ELECTROENCEPHALOGRAPH TECHNOLOGIST spoke to RNJuanita, re: pt status. Educated Juanita on providing oral care and ice chips to pt in order to maintain moisture in oral cavity and reduce risk of swallow degredation as a result of disuse. Juanita verbalized understanding. Will attempt to tx pt later in the day. Jesusita Gallegos M.A. [facility]-ELECTROENCEPHALOGRAPH TECHNOLOGIST
--- NOTE | 2020-06-29 10:11 | NUR ---
CALLED AND NOTIFIED PT'S , EVELIA, THAT [facility] EGD WAS MOVED TO TOMORROW.
--- NOTE | 2020-06-29 10:30 | NUR ---
Per Multidisiplinary Team Meeting this a.m. LTACH referral was discussed due to Pt. Complex Needs which are too Much for [facility] at this time and Pt. cannot discharge to SNF with NG Tube. Call Placed to Dr. Foreman to notify. Dr. Foreman Agreeable to LTACH but requested call to Dr. Hurt. Call Placed to Licha and Spoke with her. Dr. Hurt states at this time Pt. is not ready for Discharge. She had her First Dialysis Yesterday and Is Currently in Dialysis this day. Dr. Hurt is unsure if Pt. will require Continued Dialysis and Pt. currently only has a Temporary Dialysis Catheter. Dr. Hurt Advised that she feels that the Patient will not be ready until Friday. Pt. was referred to [facility] this a.m. and they are currently reviewing the referral. They do have beds available.
[2020-06-29 13:50] VITALS: BP 106/64
--- NOTE | 2020-06-29 14:52 | NUR ---
NOTIFIED DR. CUETO OF PT'S PAIN, DR. ARROYO HAD ORDERED A 1X DOSE OF DILAUDID AND PT WAS MORE RELAXED AND NOT COMPLAINING OF PAIN. PER DR. CUETO, HE WOULD LIKE TO BE CALLED FOR ANY PAIN MEDICATION NEEDS BECAUSE HE WOULD LIKE TO KNOW HER STATUS.
[2020-06-29 16:00] VITALS: BP 106/54
--- NOTE | 2020-06-29 17:37 | NUR ---
CALL PLACED TO DR. CUETO, PATIENT C/O PAIN 04/22 ORDER RECEIVED FOR DILAUDID 0.25MG Q 6H PRN OVER NEXT 24 HOURS.
--- NOTE | 2020-06-29 17:40 | NUR ---
SPEECH PATHOLOGY Pt seen at bedside for tx session targeting improved swallow function to facilitate her ability to safely consume PO intake and reduce risk of further respiratory complications as a result of aspiration. Pt on 3L via NC throughout tx with no apparent signs of respiratory distress. Pt initially c/o 10/10 pain; DRY PLASTERER reported pt's pain level to nurse. Pt expressed less discomfort as tx session progressed. Following oral care, this DRY PLASTERER provided pt with ice chips per spoon, instructing pt to complete effortful swallow with each trial; completed effortful swallow x20 with overt s/s in 2 trials. Piecemeal deglutition also noted (3-4 swallows/bolus). DRY PLASTERER attempted to continue with tx; however, pt tearful and requesting HOB be reclined. DRY PLASTERER complied with pt wishes and educated her on provision of ice chips following oral care as well as recommendation to continue NPO status as swallow tx continues secondary to high risk of aspiration and/or subsequent respiratory complications. Pt verbalized understanding. Pt would benefit from MBS to more accurately assess swallow function; however, she is currently unable to participate at this facility secondary to mobility limitations. This DRY PLASTERER also educated pt's nurse on recommendation for provision of ice chips following oral care in order to reduce risk of decline in swallow function secondary to disuse as well as to maintain moisture of oral mucosa. Nurse verbalized understanding. Thank you Jesusita Gallegos M.A. [facility]-DRY PLASTERER
[2020-06-29 20:00] VITALS: BP 88/42
[2020-06-30] VITALS (7 sets, daily range): BP systolic 90–115; BP diastolic 24–70
[2020-06-30 06:45] LABS: BASO % 0.4 % (0.0-1.0); EOS % 0.4 % (1.0-4.0); HEMATOCRIT 27.3 % (37.0-47.0); LYMPH % 9.1 % (27.0-41.0); MEAN CELL VOLUME 88.3 fl (81.0-99.0); MEAN CORPUSCULAR HGB 25.2 pg (27.0-31.0); MEAN CORPUSCULAR HGB CONC 28.6 g/dl (33.0-37.0); MEAN PLATELET VOLUME 10.1 fl (9.6-12.3); MONO # 1.1 10*3/uL (0.1-1.0); MONO % 9.4 % (3.0-9.0); NEUT # 8.9 10*3/uL (2.3-7.9); NEUT % 79.8 % (47.0-73.0); NUCLEATED RED BLOOD CELL 0.2 % (0.0-0.0); PLATELET COUNT AUTOMATED 265 10*3/uL (130-400); RED BLOOD COUNT 3.09 10*6/uL (4.10-5.10); RED CELL DISTRI WIDTH 16.8 % (0-14.5); WHITE BLOOD COUNT 11.1 10*3/uL (4.8-10.8)
[2020-06-30 06:56] LABS: ALBUMIN 2.6 gm/dl (3.1-4.5); CREATININE 3.11 mg/dL (0.55-1.02); POTASSIUM 4.2 mmol/L (3.5-5.1); TOTAL PROTEIN 6.2 gm/dL (6.4-8.2)
--- NOTE | 2020-06-30 08:34 | NUR ---
PATIENTS SISTER JOLIE KEVIN CALLED IN ABOUT THIS PATIENT AND REQUESTED A CALL BACK FROM MANAGER RECRUITING. [facility] FORWARD THE INFORMATION TO CHAYO ROSS. ISREAL CONTACT NUMBER IS [phone].
--- NOTE | 2020-06-30 08:50 | NUR ---
Pt. currently in Dialysis. Spoke with Pt. Sister In law Arias and Provided with Updates. Cable Television Line Technician Spoke with Dr. Hurt Yesterday and She states that Pt. is not ready for discharge at this time. Pt. was referred to [facility] and is pending Acceptance. Family is discussing Next Options and Has been in Touch with Dr. Foreman and Dr. Hurt.
--- NOTE | 2020-06-30 10:23 | NUR ---
SPEECH PATHOLOGY Called 5th floor this AM to check if pt was available for ST tx. Nurse reported that pt was in dialysis and was supposed to go for an EGD later in the day. Pt unavailable for tx. Thanks you. Jesusita Gallegos M.A. [facility]
--- NOTE | 2020-06-30 15:54 | NUR ---
SPEECH PATHOLOGY This WELDING MACHINE OPERATOR ULTRASONIC attempted to tx pt this afternoon. Pt off floor for EGD. Thank you. Jesusita Galleogs M.A. [facility]WELDING MACHINE OPERATOR ULTRASONIC
--- NOTE | 2020-06-30 15:56 | NUR ---
[facility] has accepted Patient and Placed her on Hold due to Dr. Hurt feeling that Pt. is not ready for discharge at this time. Dr. Foreman aware. Will Follow with [facility] on Friday.
--- NOTE | 2020-06-30 17:45 | NUR ---
PATIENT OFF FLOOR MUCH OF THE DAY, FOR DIALYSIS, THEN XRAY, THEN EGD/COLO RETURNED AT APPROX 1745
--- NOTE | 2020-06-30 19:20 | NUR ---
REPORT RECEIVED. PT LYING IN BED. CALL LIGHT IN REACH
--- NOTE | 2020-06-30 19:45 | NUR ---
FEED RESUMED PER ORDER. PT BATHED AND CHANGED AT THIS TIME
--- NOTE | 2020-06-30 21:03 | NUR ---
TYLENOL GIVEN PER ORDER FOR PT SCREAMING OUT IN PAIN. WILL MONITOR
--- NOTE | 2020-06-30 22:00 | NUR ---
TYLENOL INEFFECTIVE. PT SCREAMING OUT
--- NOTE | 2020-06-30 22:55 | NUR ---
DR. LE NOTIFIED THAT TEMP DIALYSIS CATH IS YELLOW/GREEN AT SITE. ALSO NOTIFIED THAT PT LEFT ARM HAS BLISTERS THAT WERE NOT THERE AT 1999 ASSESSMENT. NO ORDERS AT THIS TIME
--- NOTE | 2020-06-30 23:00 | NUR ---
DR. LE AND RICHARD NOTIFIED OF DR. ARROYO'S ORDERS/REQUESTS. ALSO NOTIFIED OF PT YELLING/SCREAMING. NO NEW ORDERS
--- NOTE | 2020-06-30 23:28 | NUR ---
SPOKE WITH DR. ARROYO AND DR. CUETO ON PHONE. ORDERED TO D/C DIALYIS CATHETER AND SEND TIP FOR CULTURE. ALSO ORDERED A NEW SET OF BLOOD CULTURES.
[2020-07-01] VITALS: BP 96/42
--- NOTE | 2020-07-01 00:30 | NUR ---
TEMPORARY DIALYSIS CATHETER REMOVED AT THIS TIME. TIP SENT TO LAB PER DR. ARROYO. PRESSURE DRESSING HELD IN PLACE.
--- NOTE | 2020-07-01 02:40 | NUR ---
DR. RAMOS NOTFIED OF PT SCREAMING OUT AND ANXIOUS. STATES THAT THERE IS NOTHING THAT CAN BE DONE FOR PT. NO NEW ORDERS
--- NOTE | 2020-07-01 04:49 | NUR ---
PT LYING IN BED. PT NG FEED RUNNING WITHOUT DIFFICULTY. CALL LIGHT IN REACH
--- NOTE | 2020-07-01 05:10 | NUR ---
PER DR. RAMOS, PT TO HOLD OFF GETTING BLOOD THIS AM
[2020-07-01 08:00] VITALS: BP 101/42
--- NOTE | 2020-07-01 08:30 | NUR ---
ADMINISTERED PO TYLENOL VIA NG TUBE FOR RIGHT ARM/GENERALIZED DISCOMFORT.
[2020-07-01 08:50] VITALS: BP 98/56
--- NOTE | 2020-07-01 09:30 | NUR ---
PRN TYLENOL NOT EFFECTIVE; PATIENT YELLING OUT, RESTLESS IN BED.
[2020-07-01 12:00] VITALS: BP 105/51
[2020-07-01 15:45] LABS: BASO % 0.3 % (0.0-1.0); EOS # 0.1 10*3/uL (0.0-0.4); EOS % 0.5 % (1.0-4.0); HEMATOCRIT 28.5 % (37.0-47.0); LYMPH # 0.8 10*3/uL (1.3-4.4); LYMPH % 7.3 % (27.0-41.0); MEAN CELL VOLUME 89.6 fl (81.0-99.0); MEAN CORPUSCULAR HGB 25.2 pg (27.0-31.0); MEAN CORPUSCULAR HGB CONC 28.1 g/dl (33.0-37.0); MEAN PLATELET VOLUME 9.8 fl (9.6-12.3); NEUT # 9.1 10*3/uL (2.3-7.9); NEUT % 81.2 % (47.0-73.0); NUCLEATED RED BLOOD CELL 0.1 10*3/uL (0.0-0.0); NUCLEATED RED BLOOD CELL 0.7 % (0.0-0.0); PLATELET COUNT AUTOMATED 286 10*3/uL (130-400); RED BLOOD COUNT 3.18 10*6/uL (4.10-5.10); RED CELL DISTRI WIDTH 17.7 % (0-14.5); WHITE BLOOD COUNT 11.2 10*3/uL (4.8-10.8)
[2020-07-01 16:00] VITALS: BP 107/49
[2020-07-01 16:00] LABS: ALBUMIN 2.7 gm/dl (3.1-4.5); CREATININE 3.37 mg/dL (0.55-1.02); TOTAL PROTEIN 6.5 gm/dL (6.4-8.2)
--- NOTE | 2020-07-01 16:59 | NUR ---
MEDICATED WITH PRN PO TYLENOL VIA NG TUBE FOR S/S DISCOMFORT IN SLEEP.
--- NOTE | 2020-07-01 17:40 | NUR ---
PATIENT RESTLESS IN BED, PRN LIQUID TYLENOL NOT EFFECTIVE FOR DISCOMFORT.
--- NOTE | 2020-07-01 18:02 | NUR ---
SHLOMO BOWSER NOTIFIED OF BLOOD CULTURE RESULTS FROM LAST EVENING. OBTAINED ORDER FOR VANCOMYCIN 2 GM IV NOW AND GET RANDOM VANCOMYCIN TROUGH IN AM.
[2020-07-01 20:00] VITALS: BP 109/47
--- NOTE | 2020-07-01 22:17 | NUR ---
LAB CALLED WITH A POSITIVE BC RESULT ON THE PATIENT. I PLACED A CALL TO THE THE PATIENT'S DOCTOR, WE ARE CURRENTLY AWAITING A CALL BACK.
--- NOTE | 2020-07-01 22:18 | NUR ---
PT REQUESTING FOOD, SHE DOES NOT UNDERSTAND WHY SHE CANNOT HAVE ANYTING TO EAT. SHE CONTINUES TO SCREAM FOR CEREAL.
--- NOTE | 2020-07-01 23:30 | NUR ---
TOOK OVER CARE OF PT AT THIS TIME. PT LYING IN BED, HOB ELEVATED. NG IN LEFT NARE, PATENT. TUBE FEED RUNNING PER ORDERS. SUPPLEMENTAL OXYGEN IN PLACE. RESPIRATIONS UNLABORED. CATHETER IN TACT AND DRAINING. SAFETY MEASURES IN PLACE. CALL LIGHT IN PLACE.
[2020-07-02] VITALS: BP 103/56
--- NOTE | 2020-07-02 06:30 | NUR ---
AM MEDICATIONS GIVEN AT THIS TIME VIA NG TUBE. PLACEMENT VERIFIED. TUBE IS PATENT IN LEFT NARE, FLUSHING WITH EASE. TUBE FEED IS RUNNING PER ORDER. SHARAN IN TACT. RIJ FLUSHING, DRESSING C/D/I. PT HOB ELEVATED. SAFETY MEASURES IN PLACE. CALL LIGHT IN REACH.
[2020-07-02 06:36] LABS: HEMATOCRIT 29.3 % (37.0-47.0); MEAN CELL VOLUME 90.2 fl (81.0-99.0); MEAN CORPUSCULAR HGB 25.8 pg (27.0-31.0); MEAN CORPUSCULAR HGB CONC 28.7 g/dl (33.0-37.0); MEAN PLATELET VOLUME 10.4 fl (9.6-12.3); NUCLEATED RED BLOOD CELL 0.2 10*3/uL (0.0-0.0); NUCLEATED RED BLOOD CELL 1.8 % (0.0-0.0); PLATELET COUNT AUTOMATED 269 10*3/uL (130-400); RED BLOOD COUNT 3.25 10*6/uL (4.10-5.10); RED CELL DISTRI WIDTH 18.8 % (0-14.5); WHITE BLOOD COUNT 10.3 10*3/uL (4.8-10.8)
[2020-07-02 06:55] LABS: ALBUMIN 2.5 gm/dl (3.1-4.5); CREATININE 3.84 mg/dL (0.55-1.02); POTASSIUM 3.9 mmol/L (3.5-5.1); TOTAL PROTEIN 6.6 gm/dL (6.4-8.2)
[2020-07-02 07:19] LABS: TOTAL CELLS COUNTED 100 #CELLS
[2020-07-02 07:20] LABS: OVALOCYTES FEW; PLATELET SUFFICIENCY NORMAL (NORMAL); POLYCHROMASIA SLIGHT
[2020-07-02 08:00] VITALS: BP 98/50
--- NOTE | 2020-07-02 10:38 | NUR ---
MEDICATED WITH PRN PO TYLENOL LIQUID VIA NG TUBE FOR RESTLESSNESS/ S/S DISCOMFORT.
--- NOTE | 2020-07-02 11:30 | NUR ---
PRN PO TYLENOL EFFECTIVE; PATIENT RESTING QUIETLY.
[2020-07-02 12:00] VITALS: BP 89/42
[2020-07-02 16:00] VITALS: BP 98/44
--- NOTE | 2020-07-02 17:20 | NUR ---
PRN PO TYLENOL SOMEWHAT EFFECTIVE FOR GENERALIZED DISCOMFORT, PATIENT HAS PAIN WITH POSITIONING.
[2020-07-02 20:00] VITALS: BP 97/53
[2020-07-03] VITALS: BP 108/67
--- NOTE | 2020-07-03 04:42 | NUR ---
DR. CUETO NOTIFIED OF 12 BEAT RUN OF V-TACH. NEW ORDER TO GET CMP, CBC, PHOS AND MAG LEVELS AND TO CONTACT DR. HICKS.
--- NOTE | 2020-07-03 04:44 | NUR ---
DR. HICKS NOTIFIED OF 12 BEAT RUN OF V-TACH.
[2020-07-03 05:41] LABS: ALBUMIN 2.7 gm/dl (3.1-4.5); CREATININE 4.38 mg/dL (0.55-1.02); POTASSIUM 3.8 mmol/L (3.5-5.1); TOTAL PROTEIN 6.4 gm/dL (6.4-8.2)
[2020-07-03 06:45] LABS: BASO % 0.3 % (0.0-1.0); EOS # 0.3 10*3/uL (0.0-0.4); EOS % 2.2 % (1.0-4.0); HEMATOCRIT 29.1 % (37.0-47.0); LYMPH # 1.4 10*3/uL (1.3-4.4); LYMPH % 11.7 % (27.0-41.0); MEAN CELL VOLUME 92.4 fl (81.0-99.0); MEAN CORPUSCULAR HGB 25.7 pg (27.0-31.0); MEAN CORPUSCULAR HGB CONC 27.8 g/dl (33.0-37.0); MEAN PLATELET VOLUME 10.9 fl (9.6-12.3); MONO # 0.8 10*3/uL (0.1-1.0); NEUT # 8.8 10*3/uL (2.3-7.9); NUCLEATED RED BLOOD CELL 0.1 10*3/uL (0.0-0.0); NUCLEATED RED BLOOD CELL 0.8 % (0.0-0.0); PLATELET COUNT AUTOMATED 280 10*3/uL (130-400); RED BLOOD COUNT 3.15 10*6/uL (4.10-5.10); RED CELL DISTRI WIDTH 19.9 % (0-14.5); WHITE BLOOD COUNT 11.5 10*3/uL (4.8-10.8)
[2020-07-03 08:00] VITALS: BP 103/40
[2020-07-03 08:58] VITALS: BP 102/46
--- NOTE | 2020-07-03 08:59 | NUR ---
ADMINISTERED PO TYLENOL VIA NGT FOR S/S DISCOMFORT/RESTLESS IN BED. HELD AM LACTULOSE FOR DIARRHEA.
--- NOTE | 2020-07-03 09:24 | NUR ---
Clinical Updates faxed to [facility].
--- NOTE | 2020-07-03 09:43 | NUR ---
PRN LIQUID TYLENOL EFFECTIVE, PER PATIENT.
--- NOTE | 2020-07-03 11:16 | NUR ---
PHYSICAL THERAPY Physical Therapy evaluation completed on 5E with full evaluation to follow. High complexity skilled PT evaluation per chart review and evaluation, [address]. Recommend physical therapy per plan of care and SNF upon discharge. Thank you for this referral. Mariza Teresa,PT,DPT
[2020-07-03 12:00] VITALS: BP 98/42
--- NOTE | 2020-07-03 12:55 | NUR ---
SPEECH PATHOLOGY Pt seen at bedside this AM for therapy session targeting therapeutic diet texture analysis, improved swallow function to facilitate reduced risk of aspiration, and pt/nsg education. Pt resting with HOB at 30 degrees and O2 via NC. WINE CELLAR WORKER assisted this BEEF SPECIALIST in positioning pt at 90 degrees for swallow tx. Prior to providing PO trials, this BEEF SPECIALIST completed thorough oral care with toothbrush and toothpaste. Following oral care, this BEEF SPECIALIST provided pt with ice chips per spoon and instructed pt to complete effortful swallow with each bolus. Pt completed effortful swallow x30 without overt s/s; reduction in piecemeal deglutition also noted as compared to previous sessions (1-2 swallows per bolus). BEEF SPECIALIST completed 3 oz water screen with pt to further assess swallow function; pt failed 3 oz water screen with immediate overt s/s following completion. This BEEF SPECIALIST finished session by trialing pureed textures; pt appeared to demonstrate functional oral transit and oral clearance of pureed textures with no s/s and clear post-prandial vocal quality noted. Pt remains high risk for aspiration and subsequent respiratory complications secondary to lack of mobility, dependence for feeding, and overall health status. Instrumental is needed to accurately assess swallow function and determine least restricive diet. This BEEF SPECIALIST discussed pt with PT re: pt's ability to sit in a WC in order to conduct MBS. PT reported that pt is not yet ready for a standard WC, but should be able to dany into beni chair. This BEEF SPECIALIST consulted with radiology to determine if beni chair would fit in C-arm; radiology reported that beni chair would be compatible with study. This BEEF SPECIALIST spoke to pt's nurse in order to obtain order for MBS and explained that pt will need to be hoyered into beni chair; once order is received, will try to schedule for 07/04. BEEF SPECIALIST also spoke with case management regarding d/c plans and need for instrumental swallow evaluation. Thank you! ADRIANNE RODRIGUEZ M.A. [facility]-BEEF SPECIALIST
--- NOTE | 2020-07-03 14:27 | NUR ---
SPOKE WITH SHLOMO WONG RE: PATIENT INTERMITTENTLY AGITATED/ANXIOUS, FAMILY DOES NOT WANT PATIENT TO TAKE ANTIDEPRESSANTS D/T ASSOCIATED WITH HER FALLING FREQUENTLY AT HOME, PER TWO FAMILY MEMBERS. OBTAINED RECCOMENDATION FO PO ATIVAN NEEDED FOR AGITATION. PHONED DR. CUETO WITH THIS, PER DR. CUETO, WILL HOLD OFF ON PRESCRIBING THIS, BUT DO CALL HIM IF PATIENT GETS AGITATED, MAY NEED TO ORDER THIS MED IN THE FUTURE.
--- NOTE | 2020-07-03 15:25 | NUR ---
MBS SCHEDULED FOR ~11 AM ON 07/04. pt will need to be hoyered into beni chair per PT. ZONING ADMINISTRATOR discussed with pt's CIVIL TECHNICIAN. WILL CALL FLOOR IN AM FOR REMINDER. ADRIANNE RODRIGUEZ M.A. [facility]-ZONING ADMINISTRATOR
[2020-07-03 16:00] VITALS: BP 115/58
--- NOTE | 2020-07-03 17:35 | NUR ---
MEDICATED WITH PRN PO TYLENOL VIA NGT FOR S/S DISCOMFORT.
--- NOTE | 2020-07-03 17:59 | NUR ---
SPOKE WITH DR. BORJAS RE: DIALYSIS CATHETER PLACEMENT. PER DR. BORJAS CATHETER SHOULD NOT BE PLACED TOMORROW. PER DR. GLOVER'S ORDER, HOLDING ASPIRN AND PLAVIX FOR WHEN PATIENT IS CLEARED BY [facility] FOR DIALYSIS CATHETER PLACEMENT.
--- NOTE | 2020-07-03 18:11 | NUR ---
PRN TYLENOL EFFECTIVE, PER PATIENT.
--- NOTE | 2020-07-03 18:21 | NUR ---
DR. GLOVER SPOKE WITH DR. BORJAS, PATIENT MAY POSSIBLY HAVE DIALYSIS CATHETER PLACED TOMORROW. HOLDING NGT FEED AT MIDNIGHT AND HOLDING HEPARIN FLUSHES AND SC HEPARIN. IT WILL BE DECIDED TOMORROW MORNING WHETHER OR NOT DIALYSIS CATH CAN BE PLACED TOMORROW.
[2020-07-03 20:00] VITALS: BP 100/45
[2020-07-04] VITALS: BP 105/49
--- NOTE | 2020-07-04 05:38 | NUR ---
24 HR chart check completed.
[2020-07-04 08:00] VITALS: BP 102/42
--- NOTE | 2020-07-04 09:10 | NUR ---
PHYSICAL THERAPY Patient seen this am 1;1 for therapy visit and was supine in bed upon therapist arrival. Patient identified by name / and presented with NG tube, reporting no c/o's of pain at this time. Patient was pleasant this morning, agreeing to supine B LE therex, stating she felt too weak to attempt EOB sit this session. Patient completed B LE therex, all planes, 2 x 10 reps each, AAROM / AROM to increase LE strength, improve LE joint ROM. Patient toleated all treatment without c/o and remained supine in bed with call light, bed side rails raised, bed alarm for safety. Will continue per POC as tolerated, total treatment time 16 minutes. Harley Slater, TRUCKMAN
--- NOTE | 2020-07-04 11:07 | NUR ---
Updates to Referral faxed to [facility] and Alex.
[2020-07-04 11:54] LABS: BASO # 0.1 10*3/uL (0.0-0.1); BASO % 0.4 % (0.0-1.0); EOS # 0.1 10*3/uL (0.0-0.4); EOS % 0.9 % (1.0-4.0); HEMATOCRIT 28.7 % (37.0-47.0); LYMPH # 1.1 10*3/uL (1.3-4.4); LYMPH % 9.3 % (27.0-41.0); MEAN CELL VOLUME 94.7 fl (81.0-99.0); MEAN CORPUSCULAR HGB 26.7 pg (27.0-31.0); MEAN CORPUSCULAR HGB CONC 28.2 g/dl (33.0-37.0); MEAN PLATELET VOLUME 10.2 fl (9.6-12.3); MONO # 0.9 10*3/uL (0.1-1.0); MONO % 7.2 % (3.0-9.0); NEUT # 9.9 10*3/uL (2.3-7.9); NEUT % 81.1 % (47.0-73.0); NUCLEATED RED BLOOD CELL 0.2 % (0.0-0.0); PLATELET COUNT AUTOMATED 234 10*3/uL (130-400); RED BLOOD COUNT 3.03 10*6/uL (4.10-5.10); WHITE BLOOD COUNT 12.2 10*3/uL (4.8-10.8)
[2020-07-04 12:00] VITALS: BP 100/46
[2020-07-04 12:13] LABS: ALBUMIN 2.6 gm/dl (3.1-4.5); CREATININE 4.9 mg/dL (0.55-1.02)
[2020-07-04 12:25] LABS: TOTAL PROTEIN 6.4 gm/dL (6.4-8.2)
--- NOTE | 2020-07-04 13:30 | NUR ---
SPOKE TO DR. ARROYO , SHE STATED PATIENT NEEDS PORT FOR DIALYSIS. CONTACTED DR. ÁLVAREZ PER HER REQUEST. . HE PLACED PORT IN R NECK. CAN BE USED FOR LABS, MEDS AND DIALYSIS.
--- NOTE | 2020-07-04 13:36 | NUR ---
SPEECH PATHOLOGY Pt seen this AM for MBS. Pt seated upright in WC, somewhat lethargic, but responsive to this HYDRAULIC HAMMER OPERATOR. HYDRAULIC HAMMER OPERATOR provided honey thick liquids per spoon, per cup x2, pureed solids, and mechanical soft solid (banana). Pt presented with prolonged oral phase with honey thick liquids per spoon with impaired A-P transit and tongue pumping noted. Improved A-P transit and improved oral transit time with honey thick liquids per cup. Min residual noted on lingual surface. Swallow of pureed textures overall functional. Prolonged disorganized mastication of mechanical soft consistency. Reduced HLE noted with mild to moderate amount of stasis noted in valleculae throughout study. Trace penetration from residual material in pyriforms noted on underside of epiglottis with initial presentation of honey thick liquids per spoon. Penetrated material remained throughout study, but did not pass level of vocal folds. No penetration noted with pureed solids. RECOMMENDATION: PUREE AND HONEY THICK -SMALL BITES/SIPS -PT SEATED AT 90 DEGREES -KEEP PT UPRIGHT FOR 20-30 MINUTES AFTER MEALS -ALTERNATE LIQUIDS/SOLIDS -SLOW RATE OF INTAKE/STAFF MAY NEED TO ASSIST PT IN FEEDING Called and informed RNChristine, of diet recommendations. FULL REPORT TO FOLLOW. THANK YOU! ADRIANNE RODRIGUEZ M.A. [facility]-HYDRAULIC HAMMER OPERATOR
--- NOTE | 2020-07-04 13:48 | NUR ---
Received call from Dr. Hurt. Dr. Almazan is out this week. She has reached out to Dr. Valderrama for a temporary dialysis cath preferably in the neck. If Dr. Valderrama is not able to put in a temporary then she may have to send the patient to [facility]. [facility] will accept patient with a temporary dialysis catheter. Dr. Hurt notified.
--- NOTE | 2020-07-04 13:57 | NUR ---
Discharge plan discussed with Dr. Hurt. Plan is for patient to have a temporary dialysis catheter placed by Dr. Valderrama. As long as the temporary dialysis catheter is placed she can be discharged to [facility] tomorrow. project planner, Luisa, notified and following.
--- NOTE | 2020-07-04 15:02 | NUR ---
Dr. Valderrama to possibly placed temporary dialysis Catheter today. Pt. can discharge tommorow to [facility]. Per Dr. Hurt. Left Message for Pt. Sister In Law Juana who Assists with Discharge Plans.
--- NOTE | 2020-07-04 15:30 | NUR ---
RT IJ REMOVED BY . DOUBLE LUMEN TEMPORARY DIALYSIS CATHETER PLACED AT SAME SITE. PT TOLERATED WELL. PER , CATHETER IS OK FOR DIALYSIS, LAB DRAWS AND MEDICATIONS. MEGHNA PECK NOTIFIED.
[2020-07-04 16:00] VITALS: BP 104/50
[2020-07-04 20:00] VITALS: BP 93/57
[2020-07-05] VITALS: BP 93/48
--- NOTE | 2020-07-05 00:47 | NUR ---
TSANG CATH REMOVED PER DR DINA OH
[2020-07-05 07:40] LABS: BASO % 0.3 % (0.0-1.0); EOS # 0.3 10*3/uL (0.0-0.4); EOS % 2.6 % (1.0-4.0); HEMATOCRIT 29.7 % (37.0-47.0); LYMPH # 1.1 10*3/uL (1.3-4.4); LYMPH % 11.4 % (27.0-41.0); MEAN CELL VOLUME 94.9 fl (81.0-99.0); MEAN CORPUSCULAR HGB 26.5 pg (27.0-31.0); MEAN CORPUSCULAR HGB CONC 27.9 g/dl (33.0-37.0); MEAN PLATELET VOLUME 10.6 fl (9.6-12.3); MONO # 0.7 10*3/uL (0.1-1.0); MONO % 7.5 % (3.0-9.0); NEUT # 7.6 10*3/uL (2.3-7.9); NEUT % 77.3 % (47.0-73.0); PLATELET COUNT AUTOMATED 230 10*3/uL (130-400); RED BLOOD COUNT 3.13 10*6/uL (4.10-5.10); RED CELL DISTRI WIDTH 22.9 % (0-14.5); WHITE BLOOD COUNT 9.9 10*3/uL (4.8-10.8)
[2020-07-05 07:57] LABS: ALBUMIN 2.4 gm/dl (3.1-4.5); CREATININE 4.56 mg/dL (0.55-1.02); POTASSIUM 4.2 mmol/L (3.5-5.1); TOTAL PROTEIN 6.3 gm/dL (6.4-8.2)
[2020-07-05 08:00] VITALS: BP 95/46
--- NOTE | 2020-07-05 08:00 | NUR ---
PT OFF FLOOR AT THIS TIME
--- NOTE | 2020-07-05 08:45 | NUR ---
Spoke with Dr. Hurt and Dr. Foreman this a.m. Plans to discharge today.
--- NOTE | 2020-07-05 08:55 | NUR ---
PHYSICAL THERAPY Patient was out of her room this am for Dialysis when approached for therapy visit and not available at this time. Will continue per POC as able. Harley Slater, AGRICULTURAL PILOT
--- NOTE | 2020-07-05 09:09 | NUR ---
ATTEMPTED TO CALL RESIDENT FOR DR. CUETO TO TAKE NG OUT FOR D/C. WILL TRY AGAIN LATER.
--- NOTE | 2020-07-05 09:17 | NUR ---
SPEECH PATHOLOGY This PHLEBOTOMY SUPPORT TECH called 5E to ask if pt was available for tx. Pt in dialysis; unavailable for tx at this time. Pt is expected to d/c to [facility] today per nsg. ADRIANNE RODRIGUEZ M.A. [facility]-PHLEBOTOMY SUPPORT TECH
--- NOTE | 2020-07-05 10:58 | NUR ---
Pt. to Discharge today to [facility]. Transportation Arranged with [facility] to Transport with Urology Surgeon time between 2:00 and 3:00 with Loan [employer] and [employer]. Spoke with Pt. Sister In Law Juana and and Updated them on Discharge Plans for today. Updated Pt. Nurse Vee. [facility] will Call for Nurse to Nurse report.
[2020-07-05] MEDS ORDERED: Bactroban Oint22 GM T (11:58)
[2020-07-05] MEDS ORDERED: MIDODRINE HCL5 M1 PO (11:58)
[2020-07-05] MEDS ORDERED: GENTAMICIN T (11:58)
[2020-07-05 12:00] VITALS: BP 98/50
--- NOTE | 2020-07-05 12:34 | NUR ---
Notified Adele at [facility] to disregard referral due to Pt. going to [facility].
--- NOTE | 2020-07-05 12:37 | NUR ---
Marbella Lemus at [facility] Post Dialysis Vital Signs obtained by Dialysis Nurse [id number] and 3.5 Liters Removed with Dialysis.
--- NOTE | 2020-07-05 13:10 | NUR ---
PT RETURNED TO FLOOR FROM DIALYSIS
--- NOTE | 2020-07-05 13:30 | NUR ---
TALKED TO DR. CUETO ABOUT PULLING NG. STATED IF SPEECH SIGNED OFF, THEN PULL IT.
--- NOTE | 2020-07-05 13:48 | NUR ---
DR. CUETO NOTIFIED OF NEED FOR DISCHARGE. WANTS DR. ARROYO TO SEE PT. THN DISCHARGE CAN BE PUT IN
--- NOTE | 2020-07-05 14:01 | NUR ---
NG PULLED AT THIS TIME
[2020-07-05 16:00] VITALS: BP 100/48
--- NOTE | 2020-07-05 17:32 | NUR ---
PHYSICAL THERAPY CO-SIGN I approve of the Physical Therapy notes written above. RITA CMKENZIE PT, DPT
--- NOTE | 2020-07-05 18:56 | NUR ---
THE PT HAS BEEN DISCHARGED, AND WILL BE LEAVING WITH [facility] FOR TRANSPORT.
[2020-07-06 05:06] LABS: HEP B CORE AB, IGM Negative (Negative); HEPATITIS B SURFACE AG Negative (Negative); HEPATITIS C VIRUS ANTIBODY <0.1 s/co (0.0-0.9)
== END 2020-07-05 21:01 | DRG 207 ==
LOC: ED 19:53 → 5E 23:13 → ICCU 23:13 → EDHOLD 23:13 → 5E 23:46 → ICCU 06-21 16:01 → 5E 06-28 14:07
PROVIDERS: Emergency Medicine; Family Medicine; Internal Medicine; Internal Medicine Critical Care Medicine; Internal Medicine Nephrology; Social Worker Clinical; Student in an Organized Health Care Education/Training Program; ADMIT Internal Medicine; ATTEND Internal Medicine
PROC: 5A1955Z Respiratory Ventilation, Greater than 96 Consecutive Hours (ICD-10-PCS; principal; 2020-06-21)
PROC: 0BH18EZ Insertion of Endotracheal Airway into Trachea, Via Natural or Artificial Opening Endoscopic (ICD-10-PCS; 2020-06-21)
PROC: 02HV33Z Insertion of Infusion Device into Superior Vena Cava, Percutaneous Approach (ICD-10-PCS; 2020-06-21)
PROC: B548ZZA Ultrasonography of Superior Vena Cava, Guidance (ICD-10-PCS; 2020-06-21)
PROC: 03HY32Z Insertion of Monitoring Device into Upper Artery, Percutaneous Approach (ICD-10-PCS; 2020-06-21)
PROC: 02HV33Z Insertion of Infusion Device into Superior Vena Cava, Percutaneous Approach (ICD-10-PCS; 2020-06-26)
PROC: B548ZZA Ultrasonography of Superior Vena Cava, Guidance (ICD-10-PCS; 2020-06-26)
PROC: 5A09357 Assistance with Respiratory Ventilation, Less than 24 Consecutive Hours, Continuous Positive Airway Pressure (ICD-10-PCS; 2020-06-26)
PROC: 5A09357 Assistance with Respiratory Ventilation, Less than 24 Consecutive Hours, Continuous Positive Airway Pressure (ICD-10-PCS; 2020-06-28)
PROC: 0DB68ZX Excision of Stomach, Via Natural or Artificial Opening Endoscopic, Diagnostic (ICD-10-PCS; 2020-06-30)
PROC: 05HY33Z Insertion of Infusion Device into Upper Vein, Percutaneous Approach (ICD-10-PCS; 2020-07-05)
PROC: B54MZZA Ultrasonography of Right Upper Extremity Veins, Guidance (ICD-10-PCS; 2020-07-05)
DX: J96.00 Acute respiratory failure, unspecified whether with hypoxia or hypercapnia (principal); A41.50 Gram-negative sepsis, unspecified; N17.0 Acute kidney failure with tubular necrosis; R65.21 Severe sepsis with septic shock; G93.41 Metabolic encephalopathy; K72.00 Acute and subacute hepatic failure without coma; E43 Unspecified severe protein-calorie malnutrition; S42.221A 2-part displaced fracture of surgical neck of right humerus, initial encounter for closed fracture; T69.029A Immersion foot, unspecified foot, initial encounter; N18.4 Chronic kidney disease, stage 4 (severe); I50.30 Unspecified diastolic (congestive) heart failure; I42.9 Cardiomyopathy, unspecified; E87.1 Hypo-osmolality and hyponatremia; N39.0 Urinary tract infection, site not specified; K56.7 Ileus, unspecified; K22.10 Ulcer of esophagus without bleeding; L03.116 Cellulitis of left lower limb; I27.20 Pulmonary hypertension, unspecified; I07.1 Rheumatic tricuspid insufficiency; T68.XXXA Hypothermia, initial encounter; D64.9 Anemia, unspecified; H54.61 Unqualified visual loss, right eye, normal vision left eye; I25.10 Atherosclerotic heart disease of native coronary artery without angina pectoris; K59.00 Constipation, unspecified; I48.91 Unspecified atrial fibrillation; K21.9 Gastro-esophageal reflux disease without esophagitis; F41.1 Generalized anxiety disorder; E78.00 Pure hypercholesterolemia, unspecified; E03.9 Hypothyroidism, unspecified; I13.10 Hypertensive heart and chronic kidney disease without heart failure, with stage 1 through stage 4 chronic kidney disease, or unspecified chronic kidney disease; N93.9 Abnormal uterine and vaginal bleeding, unspecified; I87.2 Venous insufficiency (chronic) (peripheral); E55.9 Vitamin D deficiency, unspecified; E87.5 Hyperkalemia; I35.0 Nonrheumatic aortic (valve) stenosis; D72.821 Monocytosis (symptomatic); D72.9 Disorder of white blood cells, unspecified; E80.6 Other disorders of bilirubin metabolism; R74.01 Elevation of levels of liver transaminase levels; E66.01 Morbid (severe) obesity due to excess calories; R13.12 Dysphagia, oropharyngeal phase; S80.812A Abrasion, left lower leg, initial encounter; K29.70 Gastritis, unspecified, without bleeding; E11.51 Type 2 diabetes mellitus with diabetic peripheral angiopathy without gangrene; K44.9 Diaphragmatic hernia without obstruction or gangrene; S80.12XA Contusion of left lower leg, initial encounter; F39 Unspecified mood [affective] disorder; E11.65 Type 2 diabetes mellitus with hyperglycemia; Z20.828 Contact with and (suspected) exposure to other viral communicable diseases; Z98.42 Cataract extraction status, left eye; Z95.5 Presence of coronary angioplasty implant and graft; Z95.0 Presence of cardiac pacemaker; Z90.49 Acquired absence of other specified parts of digestive tract; I25.2 Old myocardial infarction; Z83.3 Family history of diabetes mellitus; Z68.39 Body mass index [BMI] 39.0-39.9, adult; Z82.49 Family history of ischemic heart disease and other diseases of the circulatory system; Z98.41 Cataract extraction status, right eye; W18.39XA Other fall on same level, initial encounter; Y93.89 Activity, other specified; Y92.098 Other place in other non-institutional residence as the place of occurrence of the external cause; Y99.8 Other external cause status